=== PATIENT | female | born 1990 | race Caucasian/White ===

== ENCOUNTER 2024-09-29 08:10 | Emergency (ER) | payer BC, SELFPAY ==
--- NOTE | 2024-09-29 08:23 | ED_ITS ---
HPI - URI/Sore Throat General Chief Complaint: Upper Respiratory Infection Stated Complaint: cough fever Time Seen by Provider: 09/29/24 08:25 Source: patient Mode of arrival: ambulatory Limitations: no limitations History of Present Illness HPI Narrative: 34 y/o female presented for c/o cough and fever x2 days. States she feels worse today with body aches and malaise. Denies sob, wheezing, n/v/d/f/c. Tested nega tive for covid today. Daughter with similar symptoms. Related Data Allergies Allergy/AdvReac Type Severity Reaction Status Date / Time No Known Allergies Allergy Verified 09/29/24 08:12 Review of Systems Review of Systems: CONSTITUTIONAL: Denies body aches, fever, chills, or sweats. EYES: Denies visual changes, redness, or discharge. ENT: reports rhinorrhea, congestion, denies sore throat, or otalgia. CARDIOVASCULAR: Denies chest pain, palpitations, or edema. RESPIRATORY: Reports cough, denies sob, wheezing. GASTROINTESTINAL: Denies abdominal pain, nausea, vomiting, or diarrhea. MUSCULOSKELETAL: Denies back pain, joint pain, or myalgia. NEUROLOGIC: Denies headache, numbness, tingling, or weakness. All systems reviewed & are unremarkable except as noted in HPI and below PMFSH Comments At time of signature, I have reviewed and agree with nursing past medical, surgical, social and family history unless otherwise noted. Please see nursing chart for further information. There is no relevant family history pertinent to the presenting complaint Exam Narrative: GENERAL: mildly ill-appearing, in no acute distress. EYES: EOMI. No redness or drainage. Conjunctivae normal. ENT: Mucous membranes pink and moist. No rhinorrhea. TMs normal bilaterally. Throat normal. Uvula midline. NECK: Normal AROM. Supple. CHEST: No respiratory distress. Lungs clear to all moreno. HEART: Regular rate and rhythm. No murmur appreciated. ABDOMEN: Soft, nontender, nondistended, normal active bowel sounds. SKIN: Warm, dry, no rash. Capillary refill normal. Normal skin turgor. NEURO: Alert and oriented x3. Gait steady. PSYCH: Normal affect. Course Course Emergency Course: Patient is aware of diagnosis, understands and agrees to treatment plan. Anti cipatory guidance given. Patient agrees to follow-up as directed and is aware of reasons to seek care at the emergency department. Portions of this record may have been created with voice recognition software Level of Care: Express Care Visit Vital Signs Vital signs: Vital Signs Temperature 97.2 F L 09/29/24 08:27 Pulse Rate 88 09/29/24 08:27 Respiratory Rate 16 09/29/24 08:27 Blood Pressure 119/84 09/29/24 08:27 Pulse Oximetry 99 09/29/24 08:27 Temperature 97.2 F L 09/29/24 08:27 Pulse Rate 88 09/29/24 08:27 Respiratory Rate 16 09/29/24 08:27 Blood Pressure 119/84 09/29/24 08:27 Pulse Oximetry 99 09/29/24 08:27 MDM - URI/Sore Throat MDM Narrative Medical decision making narrative: Discussed physical exam findings, negative flu, COVID, and strep. Advised supportive measures and signs/symptoms to go to the ER. Pt is appropriate for outpt treatment and f/u. Differential Diagnosis Differential diagnosis: Likely upper respiratory infection, otitis media, sinusitis, viral infection, bronchitis, influenza and pharyngitis Lab Data Labs: Lab Results 09/29/24 Range/Units 08:48 POC Influenza A Ag Negative (Negative) POC Influenza B Ag Negative (Negative) POC SARS CoV-2 Ag Negative (Negative) POC Grp A Strep Screen Negative (Negative) Discharge Plan Discharge Clinical Impression: Viral infection Patient Disposition: Home, Self-Care Condition: Stable Instructions: Antibiotic Form, Upper Respiratory Infection (ED) Additional Instructions: Flu and COVID negative. Rapid strep swab was negative today You will be notified in a few days if the culture comes back positive for strep, and appropriate antibiotics will be called in at that time. if symptoms are due to a viral illness, it is not treated with antibiotics. Viral symptoms can be present for up to 10-14 days. Recommendations: Flonase spray and Zyrtec for sinus congestion Cough syrup may cause drowsiness; avoid driving or take it at night time. Tylenol every 8 hours as needed for pain/fever Soft foods, cool liquids, warm tea. Gargle with warm saltwater twice a day. Chloraseptic spray and throat lozenges. Rest and stay hydrated. --Follow up with your PCP --Go to the ER immediately if you cannot swallow your saliva, trouble breathin g/wheezing, throat swelling, pain is persistent and severe Patient Language: Welsh Prescriptions: New prednisone 20 mg tablet 40 mg PO DAILY 4 Days Qty: 8 0RF Follow-up/Referrals: Rocio,Farheen Ruby PA-C [Primary Care Provider] - Time of Disposition: 09:39
[2024-09-29 08:27] VITALS: BP 119/84; PULSE 88; RESP 16; TEMP 36.2; O2SAT 99
[2024-09-29 08:51] LABS: EDCOVIDSCREEN Negative (Negative); EDINFLUASCREEN Negative (Negative); EDINFLUBSCREEN Negative (Negative); EDSTREPNEGPOS1 Negative (Negative)
--- OUTSIDE RECORDS SUMMARY | 2024-10-06 03:52 | XMS_ITS | Encounter Summary ---
Author Organization [facility] Address [address] [place] [address]. [place], [place] [address] [place] [address] Care Team Providers Care Gas Plumber Name Role Phone Farheen Chan PA-C Primary Care Provider [phone]- [phone] Encounter Details Date Type Department Care Team (Latest Contact Info) Description 05/03/2024 Scan [facility] INFO [facility] Scanned, Doc Med Group Social History Tobacco Use Types Packs/Day Years Used Date Smoking Tobacco: Never Smokeless Tobacco: Never Alcohol Use Standard Drinks/Week Comments Yes 3.3 (1 standard drink = 0.6 oz p ure alcohol) Socially PHQ-2 Answer Date Recorded Patient Health Questionnaire-2 Score 0 04/26/2023 Comments Unknown Sex and Gender Information Value Date Recorded Sex Assigned at Not on file Legal Sex Female 7:38 PM CDT Gender Identity Not on file Sexual Orientation Not on file documented as of this encounter Plan of Treatment Not on file documented as of this encounter Visit Diagnoses Not on filedocumented in this encounter Care Teams Gas Plumber Relationship Specialty Start Date End Date Farheen Chan PA-C [address] [place] [address]. [place] [address] PCP - General PHYSICIAN WINE STEWARD 07/07/21 documented as of this encounter
--- OUTSIDE RECORDS SUMMARY | 2024-10-06 03:52 | XMS_ITS | Encounter Summary ---
Author Organization [facility] Address [address] [place] [address]. [place] [address] [place] [address] Care Team Providers Care Helper Chicken Farm Name Role Phone Farheen Chan PA-C Primary Care Provider [phone]- [phone] Encounter Details Date Type Department Care Team (Late st Contact Info) Description 04/28/2023 8:10 AM CDT Laboratory Only [facility] Medical Group [facility] [place] [address] [place] [address] Farheen Chan PA-C [address] [place], [place] [id number] Social History Tobacco Use Types Packs/Day Years [...] on file documented as of this encounter Procedures Procedure Name Priority Date/Time Associated Diagnosis Comments COLLECTION VENOUS BLOOD VENIPUNCTURE Routine 04/28/2023 8:29 AM CDT Need for hepatitis C screening test Screening, lipid Diabetes mellitus screening COMPREHENSIVE METABOLIC PANEL Routine 04/28/2023 8:29 AM CDT Diabetes mellitus screening LIPID PANEL Routine 04/28/2023 8:29 AM CDT Screening, lipid HEPATITIS C ANTIBODY Routine 04/28/2023 8:29 AM CDT Need for hepatitis C screening test documented in this encounter Results * (ABNORMAL) COMPREHENSIVE METABOLIC PANEL (04/28/2023 8:29 AM CDT) [facility] SODIUM S/P/B 141 136 - 145 MMOL/L 04/28/2023 4:21 PM CDT [facility] POTASSIUM S/P/B 4.1 3.5 - 5.1 MMOL/L 04/28/2023 4:21 PM CDT -[facility] CHLORIDE S/P/B 106 98 - 107 MMOL/L 04/28/2023 4:21 PM CDT [facility] CO2 23.0 21 - 32 MMOL/L 04/28/2023 4:21 PM CDT -[facility] GLUCOSE 93 70 - 99 MG/DL 04/28/2023 4:21 PM CDT [facility] BUN 8 7 - 18 MG/DL 04/28/2023 4:21 PM CDT -[facility] CREATININE S/P/B 0.91 0.55 - 1.02 MG/DL 04/28/2023 4:21 PM CDT [facility] CALCIUM S/P/B 8.8 8.4 - 10.5 MG/DL 04/28/2023 4:21 PM CDT -[facility] BILIRUBIN TOTAL S/P/B 0.4 0.2 - 1.0 MG/DL 04/28/2023 4:21 PM CDT [facility] ALKALINE PHOSPHATASE S/P/B 64 37 - 98 U/L 04/28/2023 4:21 PM CDT [facility] AST 16 15 - 37 U/L 04/28/2023 4:21 PM CDT [facility] ALT 21 14 - 59 U/L 04/28/2023 4:21 PM CDT [facility] TOTAL PROTEIN S/P/B 6.9 6.4 - 8.2 G/DL 04/28/2023 4:21 PM CDT [facility] [place] ALBUMIN S/P/B 3.8 3.4 - 5.0 G/DL 04/28/2023 4:21 PM CDT [facility] [place] ANION GAP 12.0 5 - 15 MMOL/L 04/28/2023 4:21 PM CDT [facility] [place] Comment:REFERENCE RANGE NOT ESTABLISHED OSMOLALITY (CALC) 290 MOSM/KG 023 4:21 PM CDT [facility] [place] Comment:REFERENCE RANGE NOT ESTABLISHED GFR ESTIMATE 84(L) >90 ML/MIN/1. 73 M2 04/28/2023 4:21 PM CDT [facility] GFR NOTES GFR REFERENCE S: 04/28/2023 4:21 PM T [facility] [place] Comment: THE ESTIMATED GFR IS CALCULATED USING THE 2020 CKD-EPI EQUATION. THE FOLLOWING CATEGORIES FOR GRADING RENAL FUNCTION ARE RECOMMENDED BY THE INTERNATIONAL SOCIETY OF NEPHROLOGY (KDIGO 2012 CLINICAL PRACTICE GUIDELINE). G1,NORMAL OR HIGH: >89 ml/min/1.73 m2 G2,MILDLY DECREASED: 60-89 ml/min/1.73 m2 G3A,MILDLY TO MODERATELY DECREASED: 45-59 ml/min/1.73 m2 G3B,MODERATELY TO SEVERELY DECREASED: 30-44 ml/min/1.73 m2 G4,SEVERELY DECREASED: 15-29 ml/min/1.73 m2 G5,KIDNEY FAILURE: <15 ml/min/1.73 m2 04/28/2023 8:29 AM CDT us Farheen Chan PA-C LABORATORY Final Resu lt [facility] [address] [place] [address], [place] [phone] * LIPID PANEL (04/28/2023 8:29 AM CDT) CHOLESTEROL 168 <200 MG/DL 04/28/2023 4:21 PM CDT [facility] TRIGLYCERIDES 45 <150 MG/DL 04/28/2023 4:21 PM CDT [facility] HDL 74 >40 MG/DL 04/28/2023 4:21 PM CDT [facility] LDL-C 85 <100 MG/DL 04/28/2023 4:21 PM CDT [facility] VLDL CALCULATION 9 5 - 28 MG/DL 04/28/2023 4:21 PM CDT [facility] CHOL/HDL RATIO 2.3 0.0 - 4.0 04/28/2023 4:21 PM CDT [facility] LDL/HDL 1.1 0.41 - 2.13 04/28/2023 4:21 PM CDT [facility] NON HDL CHOLESTEROL 94 <140 MG/DL 04/28/2023 4:21 PM CDT [facility] 04/28/2023 8:29 AM CDT Farheen Chan PA-C LABORATORY Final Resu lt [facility] [address] [place] [address], * HEPATITIS C ANTIBODY (04/28/2023 8:29 AM CDT) HEPATITIS C AB NON-REACTI VE NON-REACT SUNIL 04/28/2023 7:25 PM CDT [facility] Comment: ANTIBODIES TO HCV NOT DETECTED. DOES NOT EXCLUDE THE POSSIBILITY OF EXPOSURE TO HCV. 04/28/2023 8:29 AM CDT Farheen PATEL-C LABORATORY Final Resu lt [facility] [address] [place] [address], [phone] documented in this encounter Visit Diagnoses Diagnosis Need for hepatitis C screening test Special screening examination for other specified viral diseases Screening, lipid Screening for lipoid disorders Diabetes mellitus screening Screening for diabetes mellitus documented in this encounter Care Teams Helper Chicken Farm Relationship Specialty Start Date End Date Farheen Chan PA-C [address] [place] [address] PCP - General PHYSICIAN YARDING SUPERVISOR 07/07/21 documented as of this encounter
--- OUTSIDE RECORDS SUMMARY | 2024-10-06 03:52 | XMS_ITS | Encounter Summary ---
Author Organization [facility] Address [address] [facility] [place] [address] Care Team Providers Care Armhole Baster Jumpbasting Name Role Phone Esteban Massey MD Primary Care Provider Unav ailable Reason for Referral * Consultation (Routine) - Closed Specialty Diagnoses / Procedures Referred By Contac t Referred To Contact Diagnoses Family history of congenital heart defect Procedures AMB CONSULT TO MATERNAL MEDICNE Elvia, Ordering Provider, Referral ID Status Reason Start Date Expiration Date Visits Re quested Visits Authorized [id number] Closed 08/19/2016 02/15/2017 1 1 CTOR PACKAGING Reason for Visit * Reason Comments Ultrasound Consultation Encounter Details Date Type Department Care Team (Latest Contact Info) Description 08/22/2016 1:14 PM DIRECTOR PACKAGING - 08/22/2016 11:59 PM DIRECTOR PACKAGING Hospital Encounter [facility] [address] [place] [address] Orion Beckford MD [address] [place] [address] Discharge Disposition: Home or Self Care Social History Tobacco Use Types Packs/Day Years Used Date Smoking Tobacco: Former Cigarettes 0.3 8.6 S tarted: 03/02/2016 Smokeless Tobacco: Never Comments Yes Sex and Gender Information Value Date Recorded Sex Assigned at Not on file Gender Identity Not on file Sexual Orientation Not on file documented as of this encounter Last Filed Vital Signs Vital Sign Reading Time Taken Comments Blood Pressure 117/67 08/22/2016 1:41 PM DIRECTOR PACKAGING Pulse 82 08/22/2016 1:41 PM DIRECTOR PACKAGING Temperature - - Respiratory Rate - - Oxygen Saturation - - Inhaled Oxygen Concentration - - Weight 79.8 kg (176 lb) 08/22/2016 1:41 PM DIRECTOR PACKAGING Height 170.2 cm (5' 7 ) 08/22/2016 1:41 PM DIRECTOR PACKAGING Body Mass Index 27.57 08/22/2016 1:41 PM DIRECTOR PACKAGING documented in this encounter Medications at Time of Discharge Medication Sig Dispensed Refills Start Date End Date albuterol HFA (PROVENTIL;VENTOLIN;PROAIR ) 108 (90 BASE) MCG/ACT inhaler Inhale 2 Puffs by mouth every 6 hours as needed Vit-Fe Fumarate-FA ( VITAMIN) 28-0.8 MG tablet Take 1 Tab by mouth once daily documented as of this encounter Progress Notes * Mecca Henry RN - 08/22/2016 1:42 PM CST New patient here for MFM consult and US. Please see letter per Dr. Beckford. CTOR PACKAGING documented in this encounter Consult Notes * Orion Beckford MD - 08/22/2016 2:45 PM CSTAssociated Order(s): AMB CONSULT TO MATERNAL MEDICNE Maternal Medicine Consult Note Date of Consult: 08/22/2016 Patient's Primary Care Physician: Esteban Massey MD Physician Requesting Consult: Sanjeev So MD [address] [facility] [address] [place] [address] Name: Taylor Verduzco Age: 26 y.o. Race: Reason for requesting consultation: Taylor Verduzco is a 26 y.o. 3, Para 1, 1, female at 14w2d weeks gestation by EDDEstimated Date of Delivery: 02/18/17. I have been asked by Dr. So to consult for family historyof cardiac anomalies. Maternal grandmother with reported history of Tetralogy of Fallot (TOF). Patients mother had heart problem diagnosed in , patient uncertain of diagnosis. Patient reports no complaints. No significant cardiac history for patient. She reports normal priorpregnancy with C/S for arrest of labor. Problem List: Past Medical History Diagnosis Date ??? History of asthma Past Surgical History Procedure Laterality Date ??? section No current outpatient prescriptions on file prior to encounter. No Known Allergies History Social History ??? Marital status: Spouse name: N/A ??? Number of children: N/A ??? Years of education: N/A Occupational History ??? Not on file. Social History Main Topics ??? Smoking status: Former Smoker Packs/day: 0.25 Years: 5.00 Types: Cigarettes Start date: 03/02/2016 ??? Smokeless tobacco: Never Used ??? Alcohol use: Not on file ??? Drug use: No ??? Sexual activity: Yes Partners: Male Other Topics Concern ??? Not on file Social History Narrative Family History Problem Relation Age of Onset ??? Heart Disease Maternal Grandmother ??? Kidney Disease Father ??? Cancer Father ??? Heart Disease Mother ??? Cancer Mother ??? Twins Mother ??? Heart Disease Maternal Aunt Review of Systems: General ROS: negative Exam: BP 117/67 Pulse 82 Wt 176 lb (79.8 kg) BMI 27.57 kg/m2 General: alert, cooperative, no distress, , Abdomen: Soft and non-tender Extremities: normal, non-tender bilaterally Impression: 1. IUP (Intrauterine ) 2. Gestational Age: 14w2d 3. Family history of cardiac disease Recommendations: 1. With family history of cardiac disease, consider maternal echo. Also, consider echo at [facility] at approximately 22-24 weeks gestation. Consider detailed OB survey at approximately 18-22 weeks gestation. Patient considering options and she plans to discuss further with her primary OB provider who cans schedule the follow up and recommended ultrasounds as clinically indicated including the maternal echo, echo, and detailed OB ultrasound. No acute OB issues. Follow up with MFM as clinically indicated. Patient could consider follow up with a genetics counselor as clinically indicated for the family history of heart disease. 2. Discussed option of screening for aneuploidy including NIPT screening. Non-invasive testing (NIPT) is designed to assess the risk for certain chromosome abnormalities by analyzing DNA found in maternal blood. NIPT routinely detects trisomy 21 (Down syndrome), trisomy 18, trisomy 13, and numerical sex chromosome abnormalities. NIPT does not provide information about other chromosome abnormalities or genetic syndromes. Based on studies of high risk pregnancies, NIPT appears to be a highly accurate test, however false positive and false negative results can occur. Standard diagnostic testing by amniocentesis remains an option regardless of NIPT results. Discussed alternative screening option of maternal serum Quad screen between 15- 20 weeks gestation as screening test for Trisomy 21, Trsiomy 18, and opent neural tube defects with a sensitivity in detection of approximately 80% Patient considering options and plans to discuss further with her primary OB provider. Further management as per clinical indications. 2. I am seeing the patient as an office Maternal Medicine economic consultant. No further follow up has been scheduled at the [facility] office. The patient is to follow up with her primary obstetrical care provider for her routine care and acute OB cares including delivery as clinically indicated. Once again, we appreciate the opportunity to assist you in the care of your patient. As stated above, she will continue seeing you for care. If issues arise for which I can be of help beforeher next visit here, please contact me directly, or contact one of the other [facility] physicians. Sincerely, Orion Beckford MD Renewable Energy Engineer [facility], Department of SHOVEL OPERATOR and Women's Health Maternal Medicine CTOR PACKAGING documented in this encounter Plan of Treatment Not on file documented as of this encounter Procedures Procedure Name Priority Date/Time Associated Diagnosis Comments SONOGRAM - COMPLETE Routine 08/22/2016 2 :15 PM DIRECTOR PACKAGING Family history of congenital heart defect documented in this encounter Results * SONOGRAM - COMPLETE (08/22/2016 2:15 PM DIRECTOR PACKAGING) Anatomical Region Laterality Modality Other 08/22/2016 2:15 PM DIRECTOR PACKAGING Narrative 08/31/2016 3:42 PM DIRECTOR PACKAGING ?[facility] ? [facility] ?PHONE: ??FAX: ? Pat. Name: ?KENNY TAYLORFELICIA Franks. No: ?[id number] Study Date: ?? 08/22/2016 ??2:15pm , Age: ? 1990, 26 Pregnancies: ?? 3, Para 1, Ab 1 Height: ? 67 in Weight: ? 170 lb LMP: ?Unknown GA by US: ? 15w0d GA Selected: ??14w2d (Outside Scan) ILAN: ?02/18/2017 Referring MD: Sanjeev So MD Machine Ii Coremaker: ??Kayla Armijo RDMS Hist/Ind: ? Fx Cardiac Anomalies ?Athma ?Hx MEASUREMENTS & AGE ? GROWTH EVALUATION Measurement ??GA ? Range ? Srce %for GA Ratios ----- ---- ------- BPD ??3.0 cm 15w3d ([id number]) Hadl BPD 92% FL/BPD 0.52 HC ??10.5 cm 15w0d (07m7r-36n1i) Hadl HC ??76% FL/AC ??0.17 AC ?? 9.1 cm 15w2d (24r8c-01i1s) Hadl AC ??77% HC/AC ??1.15 (1.11 - 1.30) FL ?? 1.5 cm 14w4d (64q5c-33a4p) Hadl FL ??58% CI ? 0.82 GA for sonogram 15w0d (15v3p-12d9x) ?? Weight Estimate: based on (BPD,HC,AC,FL) Avg ?Weight: 110 gm (94-126) Hadlock ? : 0lbs, 3oz ? Normal: 100 gm (75-124) Hadlock ? Wt% ? 70% for 14w2d Heart Rate: 153 bpm CLINICAL SUMMARY Study Number: 1 A single fetus is identified in cephalic presentation. ??The measurements today are consistent with appropriate size for the ILAN provided. ??The ILAN selected is based on a prior ultrasound examination (confirmed). ??The amniotic fluid volume is within normal limits. ??The placenta is anterior. ??Visualization of the anatomy is limited on today's exam by gestational age. ??No major malformations are seen within the limitations of ultrasound examination. ??The patient was advised that ultrasound does not allow detection of all structural or chromosomal abnormalities. IMPRESSION: 1. Single, live, IUP at 14w2d 2. Appropriate size 3. Normal amniotic fluid volume 4. Anterior placenta 5. Anatomy survey is incomplete 6. No major malformations are seen within the limitations of ultrasound examination 7. Examination of the fetus is limited by positioning and early gestational age RECOMMEND: ?? Follow up ultrasound in 6 weeks to complete the anatomic survey Thank you for allowing us the opportunity to care for your patient. Orion Beckford MD <Electronic Signature> ??08/31/2016 03:42pm Ordering Provider Unlisted MD WILKINSON ORDERA YADY documented in this encounter Visit Diagnoses Diagnosis Family history of congenital heart defect- Primary Family history of congenital anomalies Supervision of other high risk pregnancies, second trimester (HCC) Disease of respiratory system affecting , second trimester (HCC) Uncomplicated asthma, unspecified asthma severity (HCC) documented in this encounter Care Teams Armhole Baster Jumpbasting Relationship Specialty Start Date End Date Esteban Massey MD PCP - General Family Medicine 08/22/16 documented as of this encounter
--- OUTSIDE RECORDS SUMMARY | 2024-10-06 03:52 | XMS_ITS | Encounter Summary ---
Author Organization [facility] Address [address] [place] [address]. [place] [address] [place] [address] Care Team Providers Care Head Of Visual Merchandising Name Role Phone Farheen Chan PA-C Primary Care Provider [phone]- [phone] Encounter Details Date Type Department Care Team (Late st Contact Info) Description 05/01/2023 [employer] Message Enc [facility] Family Medicine - [place] [address] [place] [address] Farheen Chan PA-C [address] [place] [address] [phone] results Social History Tobacco Use Types Packs/Day Years [...] on filedocumented in this encounter Care Teams Head Of Visual Merchandising Relationship Specialty Start Date End Date Farheen Chan PA-C [address] [place] [address] [phone] PCP - General PHYSICIAN LUNCHEONETTE OPERATOR 07/07/21 documented as of this encounter
--- OUTSIDE RECORDS SUMMARY | 2024-10-06 03:52 | XMS_ITS | Encounter Summary ---
Author Organization [facility] Address [address] [place] [address]. [place] [address] [place] [address] Care Team Providers Care Chemical Processing Technician Name Role Phone Farheen Chan PA-C Primary Care Provider +1- [phone] Encounter Details Date Type Department Care Team (Late st Contact Info) Description 08/29/2022 Orders Only [facility] Family Medicine - [place] [address] Mercedes Lau MA Social History Tobacco Use Types Packs/Day Years Used Date Smoking Tobacco: Never Smokeless Tobacco: Never Alcohol Use Standard Drinks/Week Comments Yes 0 (1 standard drink = 0.6 oz pur e alcohol) Socially PHQ-2 Answer Date Recorded PHQ-2 Score - If the patient scores above 3, please move on to questions 3-9 0 01/05/2022 Comments Unknown Sex and Gender Information Value Date Recorded Sex Assigned at Not on file Legal Sex Female 7:38 PM CDT Gender Identity Not on file Sexual Orientation Not on file documented as of this encounter Progress Notes * Mercedes Lau MA - 08/29/2022 2:31 PM CST Medication refill request for: duplicate order Last visit with Farheen Chan Was 01/05/22 No up coming appt Please sign pending Rx OTYPE OPERATOR documented in this encounter Plan of Treatment Not on file documented as of this encounter Visit Diagnoses Diagnosis Mild persistent asthma without complication (HHS/HCC) Unspecified asthma documented in this encounter Care Teams Chemical Processing Technician Relationship Specialty Start Date End Date Farheen Chan PA-C [address] [place] [id number] PCP - General PHYSICIAN POLE CUTTER 07/07/21 documented as of this encounter
--- OUTSIDE RECORDS SUMMARY | 2024-10-06 03:52 | XMS_ITS | Encounter Summary ---
Author Organization [facility] Address [address] [place] [address]. [place] [address] [place] [address] Care Team Providers Care Gifted Program Teacher Name Role Phone Farheen Chan PA-C Primary Care Provider +1- [phone] Reason for Visit * Reason Onset Date Comments Refill Request 11/25/2022 Encounter Details Date Type Department Care Team (Late st Contact Info) Description 11/25/2022 Telephone [facility] Family Medicine - [place] [address] [place] [address] Farheen Chan PA-C [address] [place] [address] Refill Request Social History Tobacco Use Types Packs/Day Years [...] as of this encounter Progress Notes * Ana Laura Saxena - 11/25/2022 11:25 AM CST Refill Request. [facility] [place], [place] [phone] Albuterol sulfate HFA 108 Inhaler. Fluticasone-salmeterol 250-50 inhaler. GEMENT PROFESSIONAL documented in this encounter Plan of Treatment Not on file documented as of this encounter Visit Diagnoses Diagnosis Mild persistent asthma without complication (HHS/HCC) Unspecified asthma documented in this encounter Care Teams Gifted Program Teacher Relationship Specialty Start Date End Date Farheen Chan PA-C [address] [place] [id number] PCP - General PHYSICIAN MEDICAL PROGRAM SPECIALIST 07/07/21 documented as of this encounter
--- OUTSIDE RECORDS SUMMARY | 2024-10-06 03:52 | XMS_ITS | Encounter Summary ---
Author Organization [facility] Address [address] [place] [address]. [place] [address] [place] [address] Care Team Providers Care Primary Grade Teacher Name Role Phone Farheen Chan PA-C Primary Care Provider +1- [phone] Reason for Visit * Reason Onset Date Comments Refill Request 08/29/2022 Medication Request 08/29/2022 Encounter Details Date Type Department Care Team (Late st Contact Info) Description 08/29/2022 Telephone [facility] Family Medicine - [place] [address] [place] [address] Farheen Chan PA-C [address] [place] [address] Refill Request; Medication Request Social History Tobacco Use Types Packs/Day [...] Notes * Mercedes Lau MA - 08/29/2022 2:37 PM CST Last visit with Farheen Chan Was 01/05/22 No up coming appt Please sign pending Rx PER SELECTOR documented in this encounter Plan of Treatment Not on file documented as of this encounter Visit Diagnoses Diagnosis Mild persistent asthma without complication (HHS/HCC) Unspecified asthma documented in this encounter Care Teams Primary Grade Teacher Relationship Specialty Start Date End Date Farheen Chan PA-C [address] [place] [id number] PCP - General PHYSICIAN EDITOR MANAGING NEWSPAPER 07/07/21 documented as of this encounter
--- OUTSIDE RECORDS SUMMARY | 2024-10-06 03:52 | XMS_ITS | Encounter Summary ---
Author Organization [facility] Address [address] [place] [address]. [place], [place] [address] [place] [address] Care Team Providers Care Permanent Mold Supervisor Name Role Phone Farheen Chan PA-C Primary Care Provider +1- [phone] Reason for Referral * Sleep Lab (Routine) - Closed Specialty Diagnoses / Procedures Referred By Ruchi padilla Referred To Contact Diagnoses Snoring Fatigue, unspecified type Overweight (BMI 25.0-29.9) Sleep apnea, unspecified type Morning headache Procedures Home Sleep Study - WatchPat ([id number]) Alexander Greenfield DO [address] [facility] [address] [place] [address] Phone: tel: fax: Referral ID Status Reason Start Date Expiration Date Visits Re quested Visits Authorized [id number] Closed 04/28/2023 04/28/2024 1 1 Reason for Visit * Sleep Lab (Routine) - Closed Specialty Diagnoses / Procedures Referred By Ruchi padilla Referred To Contact Diagnoses Snoring Fatigue, unspecified type Overweight (BMI 25.0-29.9) Sleep apnea, unspecified type Morning headache Procedures Home Sleep Study - WatchPat ([id number]) Alexander Greenfield DO [address] [facility] [address] [place] [address] Phone: tel: fax: Referral ID Status Reason Start Date Expiration Date Visits Re quested Visits Authorized [id number] Closed 04/28/2023 04/28/2024 1 1 Encounter Details Date Type Department Care Team (Latest Contact Info) Description 05/25/2023 12:47 PM CDT - 05/25/2023 11:59 PM CDT Hospital Encounter [facility] [address] [place] [address] Alexander Greenfield DO [address] [facility] [address] [place] [address] Discharge Disposition: Home or Self Care (Routine Discharge) Social History Tobacco Use Types Packs/Day Years [...] on file documented as of this encounter Medications at Time of Discharge albuterol (2.5 MG/3ML) 0.083% nebulizer solutionIndicatio ns:Mild persistent asthma without complication (HHS/HCC) Take 3 mLs (2.5 mg total) by nebulization every 6 (six) hours as needed for Wheezing. 360 mL 01/10/2022 fluticasone-salme terol (ADVAIR DISKUS) 250-50 MCG/ACT inhalerIndication s:Mild persistent asthma without complication (HHS/HCC) Inhale 1 puff into the lungs 2 (two) times daily. 1 each 3 11/25/2022 NEBULIZER DEVICE, DME,Indications:M ild persistent asthma without complication (HHS/HCC) Take 1 Device by nebulization every 6 (six) hours as needed. 1 Device 01/12/2022 albuterol sulfate HFA 108 (90 Base) MCG/ACT inhalerIndication s:Mild persistent asthma without complication (HHS/HCC) INHALE 2 PUFFS INTO THE LUNGS EVERY 6 HOURS NEEDED FOR WHEEZE 8.5 g 1 04/24/2023 3 documented as of this encounter Procedure Notes * Santos Stoll MD - 05/25/2023 1:00 PM CDTAssociated Order(s): HOME SLEEP STUDY - WATCHPAT [facility]???[facility] O???[place], [place] HOME SLEEP STUDY INTERPRETATION PATIENT NAME: Licha Verduzco DATE OF : 1990 DATE OF SERVICE: 05/25/2023 Ordering Phys. Exam Description Alexander Greenfield D.O. Home Sleep Study ATTENDING PHYSICIAN: Dr. Santos Stoll REFERRING PHYSICIAN: Dr. Alexander Greenfield SUMMARY DATA Sleep Study/ Architecture: This patient was studied using a WatchPAT home sleep study device. The evaluation was initiated on 05/25/2023 at 7:45 PM and was stopped on 05/26/2023 at 4:38 AM. The totalrecording time was 532.0 minutes with total sleep evaluation 449.0 minutes. DIAGNOSTIC Total pAHI (Apnea-Hypopnea Index) (4%): Total pRDI (Respiratory Disturbance Index): 1.1/hr 7.5/hr Average Sleep Oxygen Saturation: 94 Minimum Sleep Oxygen Saturation: Mean Heart Rate during Sleep: 90 73.0 bpm Assessment/Plan: No Evidence of Obstructive Sleep Apnea. Rare snoring was noted during this study. This patient should maintain good sleep hygiene techniques, maintain a consistent sleep/wake schedule with adequate hours of sleep, and avoid hazardous activities when sleepy. The patient should be cautioned about factors that may potentially exacerbate snoring and other sleep-related issues, such as INTERNAL AUDIT SENIOR MANAGER depressants, especially at bedtime. This document was electronically signed by: Santos Stoll M.D. on 05/26/2023 at 5:15 PM. documented in this encounter Plan of Treatment Not on file documented as of this encounter Procedures Procedure Name Priority Date/Time Associated Diagnosis Comments HOME SLEEP STUDY - WATCHPAT Routine 05/25/2023 1:00 PM CDT Snoring Fatigue, unspecified type Overweight (BMI 25.0-29.9) Sleep apnea, unspecified type Morning headache documented in this encounter Results * Home Sleep Study - WatchPat ([id number]) (05/25/2023 1:00 PM CDT) Narrative [facility] - 05/25/2023 1:00 PM CDT Santos Stoll MD ? 06/22/2023 11:33 AM [facility] O? [place], [place] HOME SLEEP STUDY INTERPRETATION PATIENT NAME: Licha Verduzco DATE OF : 1990 DATE OF SERVICE: 05/25/2023 ?? Ordering Phys. Exam Description Alexander Greenfield D.O. Home Sleep Study ATTENDING PHYSICIAN: Dr. Santos Stoll REFERRING PHYSICIAN: Dr. Alexander Greenfield SUMMARY DATA Sleep Study/ Architecture: This patient was studied using a WatchPAT home sleep study device. The evaluation was initiated on 05/25/2023 at 7:45 PM and was stopped on 05/26/2023 at 4:38 AM. The total recording time was 532.0 minutes with total sleep evaluation 449.0 minutes. DIAGNOSTIC Total pAHI (Apnea-Hypopnea Index) (4%): Total pRDI (Respiratory Disturbance Index): 1.1/hr 7.5/hr Average Sleep Oxygen Saturation: 94 Minimum Sleep Oxygen Saturation: Mean Heart Rate during Sleep: 90 73.0 bpm Assessment/Plan: No Evidence of Obstructive Sleep Apnea. Rare snoring was noted during this study. This patient should maintain good sleep hygiene techniques, maintain a consistent sleep/wake schedule with adequate hours of sleep, and avoid hazardous activities when sleepy. The patient should be cautioned about factors that may potentially exacerbate snoring and other sleep-related issues, such as INTERNAL AUDIT SENIOR MANAGER depressants, especially at bedtime. This document was electronically signed by: Santos Stoll M.D. on 05/26/2023 at 5:15 PM. us Alexander Greenfield DO SLEEP CENTER ORDERABLES Fi nal Result [facility] [address] [place] [address], [place] [phone] documented in this encounter Visit Diagnoses Diagnosis Snoring Other dyspnea and respiratory abnormality Fatigue, unspecified type Overweight (BMI 25.0-29.9) Overweight Sleep apnea, unspecified type Morning headache Headache documented in this encounter Care Teams Permanent Mold Supervisor Relationship Specialty Start Date End Date Farheen Chan PA-C [address] [place] [id number] PCP - General PHYSICIAN CIGARETTE MAKING MACHINE OPERATOR 07/07/21 documented as of this encounter
--- OUTSIDE RECORDS SUMMARY | 2024-10-06 03:52 | XMS_ITS | Encounter Summary ---
Author Organization [facility] Address [address] [place] [address]. [place] [address] [place] [address] Care Team Providers Care Plant Sciences Professor Name Role Phone Farheen Chan PA-C Primary Care Provider +1- [phone] Encounter Details Date Type Department Care Team (Latest Contact Info) Description 04/28/2023 Travel Social History Tobacco Use Types Packs/Day Years [...] on filedocumented in this encounter Care Teams Plant Sciences Professor Relationship Specialty Start Date End Date Farheen Chan PA-C [address] [place] [address] PCP - General PHYSICIAN NETWORK FIELD ENGINEER 07/07/21 documented as of this encounter
--- OUTSIDE RECORDS SUMMARY | 2024-10-06 03:52 | XMS_ITS | Patient Health Summary ---
Author Organization [facility] [employer] Address [address] [place] [address] Care Team Providers Care Supervisor Cab Name Role Phone Esteban Massey MD Primary Care Provider Unav ailable Note from [facility] [employer] [facility] [employer],non-owned Affiliates and Associated Physician Practices is amultiple site organization consisting of ambulatory clinics and hospital sitesin [place], [place], [place] and [place]. This disclosure is being madepursuant to the Care Everywhere program and may not contain all information available regarding this patient. Last updated 18.[facility] [employer] Allergies No known active allergies Medications * Be aware that medications may not be up to date on this document. Alwaysverify current medications with the patient. * albuterol HFA (PROVENTIL;VENTOLIN;PROAIR) 108 (90 BASE) MCG/ACT inhaler Inhale 2 Puffs by mouth every 6 hours as needed * Vit-Fe Fumarate-FA ( VITAMIN) 28-0.8 MG tablet Take 1 Tab by mouth once daily Active Problems Problem Noted Date Diagnosed Date Family history of congenital heart defect 2015 Social History Tobacco Use Types Packs/Day Years Used Date Smoking Tobacco: Former Cigarettes 0.3 8.6 S tarted: 03/02/2016 Smokeless Tobacco: Never Sex and Gender Information Value Date Recorded Sex Assigned at Not on file Gender Identity Not on file Sexual Orientation Not on file Last Filed Vital Signs Vital Sign Reading Time Taken Comments Blood Pressure 117/67 08/22/2016 1:41 PM HERBARIUM WORKER Pulse 82 08/22/2016 1:41 PM HERBARIUM WORKER Temperature - - Respiratory Rate - - Oxygen Saturation - - Inhaled Oxygen Concentration - - Weight 79.8 kg (176 lb) 08/22/2016 1:41 PM HERBARIUM WORKER Height 170.2 cm (5' 7 ) 08/22/2016 1:41 PM HERBARIUM WORKER Body Mass Index 27.57 08/22/2016 1:41 PM HERBARIUM WORKER Procedures * SONOGRAM - COMPLETE(Performed 08/22/2016) Performed for Family history of congenital heart defect Results * SONOGRAM - COMPLETE (08/22/2016 2:15 PM HERBARIUM WORKER) Anatomical Region Laterality Modality Other 08/22/2016 2:15 PM HERBARIUM WORKER Narrative 08/31/2016 3:42 PM HERBARIUM WORKER ?[facility] ?PHONE: ??FAX: ? Pat. Name: ?TAYLOR VERDUZCO. No: ?[id number] Study Date: ?? 08/22/2016 ??2:15pm , Age: ? 1990, 26 Pregnancies: ?? 3, Para 1, Ab 1 Height: ? 67 in Weight: ? 170 lb LMP: ?Unknown GA by US: ? 15w0d GA Selected: ??14w2d (Outside Scan) ILAN: ?02/18/2017 Referring MD: Sanjeev So MD Automation Controls Engineer: ??Kayla Armijo RDMS Hist/Ind: ? Fx Cardiac Anomalies ?Athma ?Hx MEASUREMENTS & AGE ? GROWTH EVALUATION Measurement ??GA ? Range ? Srce %for GA Ratios ----- ---- ------- BPD ??3.0 cm 15w3d ([id number]) Hadl BPD 92% FL/BPD 0.52 HC ??10.5 cm 15w0d ([id number]) Hadl HC ??76% FL/AC ??0.17 AC ?? 9.1 cm 15w2d ([id number]) Hadl AC ??77% HC/AC ??1.15 (1.11 - 1.30) FL ?? 1.5 cm 14w4d (31q1g-39u1g) Hadl FL ??58% CI ? 0.82 GA for sonogram 15w0d ([id number]) ?? Weight Estimate: based on (BPD,HC,AC,FL) Avg [...] ??08/31/2016 03:42pm Ordering Provider [facility]listed [facility] Care Teams Supervisor Cab Relationship Specialty Start Date End Date Esteban Massey MD PCP - General Family Medicine 08/22/16
--- OUTSIDE RECORDS SUMMARY | 2024-10-06 03:52 | XMS_ITS | Referral Summary ---
Author Organization [facility] [employer] Address [address] [place] [address] Care Team Providers Care Airplane Gastank Liner Assembler Name Role Phone Esteban Massey MD Primary Care Provider Unav ailable Source Comments [facility] [employer],non-owned Affiliates and Associated Physician Practices is amultiple site organization consisting of ambulatory clinics and hospital sitesin [place], [place], [place] and [place]. This disclosure is being madepursuant to the Care Everywhere program and may not contain all information available regarding this patient. Last updated 18.[employer] Allergies No known active allergies Medications * Be aware that medications may not be up to date on this document. Alwaysverify current medications with the patient. Medication Sig Dispensed Refills Start Date End Date Status albuterol HFA (PROVENTIL;VENTOLIN;NC OAIR) 108 (90 BASE) MCG/ACT inhaler Inhale 2 Puffs by mouth every 6 hours as needed Active Vit-Fe Fumarate-FA ( VITAMIN) 28-0.8 MG tablet Take 1 Tab by mouth once daily Active Active Problems Problem Noted Date Diagnosed Date [...] Comments Blood Pressure 117/67 08/22/2016 1:41 PM SONOGRAM TECHNICIAN Pulse 82 08/22/2016 1:41 PM SONOGRAM TECHNICIAN Temperature - - Respiratory Rate - - Oxygen Saturation - - Inhaled Oxygen Concentration - - Weight 79.8 kg (176 lb) 08/22/2016 1:41 PM SONOGRAM TECHNICIAN Height 170.2 cm (5' 7 ) 08/22/2016 1:41 PM SONOGRAM TECHNICIAN Body Mass Index 27.57 08/22/2016 1:41 PM SONOGRAM TECHNICIAN Plan of Treatment Not on file Care Teams Airplane Gastank Liner Assembler Relationship Specialty Start Date End Date Esteban Massey MD PCP - General Family Medicine 08/22/16
--- OUTSIDE RECORDS SUMMARY | 2024-10-06 03:52 | XMS_ITS | Encounter Summary ---
Author Organization [facility] Address [address] [place] [address]. [place], [place] [id number] [place] [address] Care Team Providers Care Manager Hotel Name Role Phone Reji Heller PA-C Primary Care Provider [phone]- [phone] Reason for Referral * Consultation (Routine) - Closed Specialty Diagnoses / Procedures Referred By Contact Referred To Contact SLEEP & RESPIRATORY CARE Diagnoses Snoring Procedures OFFICE/OUTPT VISIT,NEW,LEVL III OFFICE/OUTPT VISIT,NEW,LEVL IV OFFICE/OUTPT VISIT,NEW,LEVL V OFFICE/OUTPT VISIT,EST,LEVL III OFFICE/OUTPT VISIT,EST,LEVL IV OFFICE/OUTPT VISIT,EST,LEVL V Reji Heller PA-C [address] [place] [address] Phone: tel: fax: [facility] [address] [facility], [address] [place] [address] Phone: tel: fax: Referral ID Status Reason Start Date Expiration Date V isits Requested Visits Authorized [id number] Closed Specialty Services 04/26/2023 05/27/2024 99 99 Reason for Visit * Reason Comments Annual Encounter Details Date Type Department Care Team (Late st Contact Info) Description 04/26/2023 10:00 AM CDT Office Visit [facility] Family Medicine - [place] [address] [place] [id number] Reji Heller PA-C [address] [place] [address] Annual Social History Tobacco Use Types Packs/Day Years [...] Sign Reading Time Taken Comments Blood Pressure 124/88 04/26/2023 10:00 AM CDT Pulse 98 04/26/2023 10:00 AM CDT Temperature 36.8 ??C (98.2 ??F) 04/26/2023 10:00 AM C DT Respiratory Rate - - Oxygen Saturation 99% 04/26/2023 10:00 AM CDT Inhaled Oxygen Concentration - - Weight 76.8 kg (169 lb 6.4 oz) 04/26/2023 10:00 AM CDT Height - - Body Mass Index 26.93 01/05/2022 1:01 PM CDT documented in this encounter Progress Notes * Reji Heller PA-C - 04/26/2023 10:00 AM CDT Reason for Visit: Annual History of Present Illness: Patient here for asthma follow up. Takes advair daily and feels her asthma is well controlled on it. She rarely uses the albuterol. Tries to follow diet and exercise. She sees grants and contracts assistant for well woman exam. She is having some trouble sleeping and her said she stops breathing sometimes. She snoresand has daytime fatigue. Denies any other complaints. ROS: Review of Systems Constitutional: Positive for fatigue. Respiratory: Positive for snoring. Negative for shortness of breath. Cardiovascular: Negative for chest pain. Psychiatric/Behavioral: Negative for suicidal ideas. All other systems reviewed and are negative. Medications: Current Outpatient Medications: albuterol (2.5 MG/3ML) 0.083% nebulizer solution, Take 3 mLs (2.5 mg total) by nebulization every 6(six) hours as needed for Wheezing., Disp: 360 mL, Rfl: 0 albuterol sulfate HFA 108 (90 Base) MCG/ACT inhaler, INHALE 2 PUFFS INTO THE LUNGS EVERY 6 HOURS ASNEEDED FOR WHEEZE, Disp: 8.5 g, Rfl: 1 fluticasone-salmeterol (ADVAIR DISKUS) 250-50 MCG/ACT inhaler, Inhale 1 puff into the lungs 2 (two)times daily., Disp: 1 each, Rfl: 3 NEBULIZER DEVICE, DME,, Take 1 Device by nebulization every 6 (six) hours as needed., Disp: 1 Device, Rfl: 0 Review of patient's allergies indicates: No Known Allergies Past Medical History: Diagnosis Date Anemia Asthma Childhood GERD (gastroesophageal reflux disease) 2020 Past Surgical History: Procedure Laterality Date SECTION Social History Socioeconomic History Marital status: Tobacco Use Smoking status: Never Smokeless tobacco: Never Vaping Use Vaping Use: Never used Substance and Sexual Activity Alcohol use: Yes Alcohol/week: 3.3 standard drinks Types: 2 Glasses of wine per week Comment: Socially Drug use: Never Sexual activity: Yes Partners: Male control/protection: None E-Cigarettes Questions Responses E-Cigarette Use Never User E-cigarette/Vaping Substances Questions Responses Nicotine No THC No CBD No Flavoring No E-cigarette/Vaping Devices Questions Responses Disposable No Pre-filled or Refillable Cartridge No Refillable Tank No Pre-filled Pod No Family History Problem Relation Name Age of Onset Cancer Mother Dipti Kang COPD Mother Dipti Kang Kidney Disease Father Stevan Kang Family Status Relation Name Status Mother Dipti Kang Father Stevan Kang Physical Exam Vitals reviewed. Constitutional: Appearance: Normal appearance. HENT: Head: Normocephalic. Right Ear: Tympanic membrane normal. Left Ear: Tympanic membrane normal. Mouth/Throat: Oropharynx is clear and moist and mucous membranes are normal. Mucous membranes are moist. No posterior oropharyngeal edema or posterior oropharyngeal erythema. Oropharynx is clear. Eyes: Conjunctiva/sclera: Conjunctivae normal. Pupils: Pupils are equal, round, and reactive to light. Neck: Thyroid: No thyromegaly. Cardiovascular: Rate and Rhythm: Normal rate and regular rhythm. Pulmonary: Effort: Pulmonary effort is normal. Breath sounds: Normal breath sounds. Abdominal: General: Bowel sounds are normal. Palpations: Abdomen is soft. Tenderness: There is no abdominal tenderness. Musculoskeletal: Right lower leg: No edema. Left lower leg: No edema. Skin: General: Skin is warm and dry. Findings: No rash. Neurological: General: No focal deficit present. Mental Status: She is alert and oriented to person, place, and time. Psychiatric: Mood and Affect: Mood normal. Filed Vitals: 04/26/23 1000 BP: 124/88 Pulse: 98 Temp: 98.2 ??F (36.8 ??C) TempSrc: Temporal SpO2: 99% Weight: 76.8 kg (169 lb 6.4 oz) Diagnoses/Impression: 1. Mild persistent asthma without complication 2. Snoring [facility] 3. Need for hepatitis C screening test HEPATITIS C ANTIBODY 4. Screening, lipid LIPID PANEL 5. Diabetes mellitus screening COMPREHENSIVE METABOLIC PANEL 6. Need for rwjutgjfbl-kflyiph-brzaladcc (Tdap) vaccine [[id number]] Adacel (Tdap) Recommendations and Plan: She will continue the same inhalers for asthma. She should continue healthy diet and exercise for 20-30 minutes 3-4 days a week. She will have screening labs done. She will have covid booster at pharmacy. She will see pulmonology/sleep medicine for sleep evaluation when scheduled. She will follow up in 1 year. Orders Placed This Encounter COMPREHENSIVE METABOLIC PANEL LIPID PANEL HEPATITIS C ANTIBODY [facility] [[id number]] Adacel (Tdap) Reviewed and updated this visit by provider: Tobacco Allergies Meds Problems Med Hx Surg Hx Fam Hx REJI HELLER PA-C Referring Provider: No ref. provider found PCP: REJI HELLER PA-C documented in this encounter Plan of Treatment Scheduled Referrals Name Type Priority Associated Diagnoses Orde r Schedule Ambulatory referral to Pulmonology ( [place]) Referral Routine Snoring Ordered: 04/26/2023 documented as of this encounter Results * HEPATITIS C ANTIBODY (04/28/2023 8:29 AM CDT) HEPATITIS C AB NON-REACTI VE NON-REACT SUNIL 04/28/2023 7:25 PM CDT [facility] Comment: ANTIBODIES TO HCV NOT DETECTED. DOES NOT EXCLUDE THE POSSIBILITY OF EXPOSURE TO HCV. 04/28/2023 8:29 AM CDT Reji Heller PA-C LABORATORY Final Resu lt [facility] [address] [place] [address], [id number] * LIPID PANEL (04/28/2023 8:29 AM CDT) CHOLESTEROL 168 <200 MG/DL 04/28/2023 4:21 PM CDT [facility] TRIGLYCERIDES 45 <150 MG/DL 04/28/2023 4:21 PM CDT [facility] HDL 74 >40 MG/DL 04/28/2023 4:21 PM CDT [facility] LDL-C 85 <100 MG/DL 04/28/2023 4:21 PM CDT [facility] VLDL CALCULATION 9 5 - 28 MG/DL 04/28/2023 4:21 PM CDT [facility] CHOL/HDL RATIO 2.3 0.0 - 4.0 04/28/2023 4:21 PM CDT [facility] LDL/HDL 1.1 0.41 - 2.13 04/28/2023 4:21 PM CDT [facility] NON HDL CHOLESTEROL 94 <140 MG/DL 04/28/2023 4:21 PM CDT [facility] 04/28/2023 8:29 AM CDT Reji M Rocio PA-C LABORATORY [facility] [address] [place] [address], * (ABNORMAL) COMPREHENSIVE METABOLIC PANEL (04/28/2023 8:29 AM CDT) [facility] SODIUM S/P/B 141 136 - 145 MMOL/L 04/28/2023 4:21 PM CDT [facility] POTASSIUM S/P/B 4.1 3.5 - 5.1 MMOL/L 04/28/2023 4:21 PM CDT -[facility] CHLORIDE S/P/B 106 98 - 107 MMOL/L 04/28/2023 4:21 PM CDT -[facility] CO2 23.0 21 - 32 MMOL/L 04/28/2023 4:21 PM CDT -[facility] GLUCOSE 93 70 - 99 MG/DL 04/28/2023 4:21 PM CDT -[facility] BUN 8 7 - 18 MG/DL 04/28/2023 4:21 PM CDT -[facility] CREATININE S/P/B 0.91 0.55 - 1.02 MG/DL 04/28/2023 4:21 PM CDT -[facility] CALCIUM S/P/B 8.8 8.4 - 10.5 MG/DL 04/28/2023 4:21 PM CDT [facility] BILIRUBIN TOTAL S/P/B 0.4 0.2 - 1.0 MG/DL 04/28/2023 4:21 PM CDT [facility] ALKALINE PHOSPHATASE S/P/B 64 37 - 98 U/L 04/28/2023 4:21 PM CDT -[facility] AST 16 15 - 37 U/L 04/28/2023 4:21 PM CDT [facility] ALT 21 14 - 59 U/L 04/28/2023 4:21 PM CDT [facility] TOTAL PROTEIN S/P/B 6.9 6.4 - 8.2 G/DL 04/28/2023 4:21 PM [facility] ALBUMIN S/P/B 3.8 3.4 - 5.0 G/DL 04/28/2023 4:21 PM CDT [facility] ANION GAP 12.0 5 - 15 MMOL/L 04/28/2023 4:21 PM CDT [facility] Comment:REFERENCE RANGE NOT ESTABLISHED OSMOLALITY (CALC) 290 MOSM/KG 023 4:21 PM CDT [facility] Comment:REFERENCE RANGE NOT ESTABLISHED GFR ESTIMATE 84(L) >90 ML/MIN/1. 73 M2 04/28/2023 4:21 PM T [facility] GFR NOTES GFR REFERENCE S: 04/28/2023 4:21 PM T [facility] Comment: THE ESTIMATED GFR IS CALCULATED USING [...] ml/min/1.73 m2 04/28/2023 8:29 AM CDT us Reji Heller PA-C LABORATORY Final Resu lt [facility] [address] [facility] [address], [place] [phone] documented in this encounter Visit Diagnoses Diagnosis Mild persistent asthma without complication (HHS/HCC)- Primary Unspecified asthma Snoring Other dyspnea and respiratory abnormality Need for hepatitis C screening test Special screening examination for other specified viral diseases Screening, lipid Screening for lipoid disorders Diabetes mellitus screening Screening for diabetes mellitus Need for zcihpvpojx-vnwdtwp-pcegcyqvt (Tdap) vaccine Need for prophylactic vaccination with combined ldlionihfm-lcftzpi-ygrvqtgms (DTP) vaccine documented in this encounter Care Teams Manager Hotel Relationship Specialty Start Date End Date Reji Heller PA-C [address] [place] [id number] PCP - General PHYSICIAN TRIMMING INSPECTOR 07/07/21 documented as of this encounter
--- OUTSIDE RECORDS SUMMARY | 2024-10-06 03:52 | XMS_ITS | Encounter Summary ---
Author Organization [facility] Address [address] [place] [address]. [place] [address] [place] [address] Care Team Providers Care Cold Roll Operator Name Role Phone Farheen Chan PA-C Primary Care Provider [phone]- [phone] Reason for Visit * Reason Onset Date Comments Refill Request 01/13/2022 Encounter Details Date Type Department Care Team (Late st Contact Info) Description 01/13/2022 Telephone [facility] Family Medicine - [place] [address] [place] [address] Farheen Chan PA-C [address] [place] [address] Refill Request Social History Tobacco [...] on file Sexual Orientation Not on file COVID-19 Exposure Response Date Recorded In the last 10 days, have yo u been in contact with someone who was confirmed or suspected to have Coronavirus/COVID-19? No / Unsure 01/05/2022 12:40 PM CDT documented as of this encounter Progress Notes * Ramonita Lobato MA - 01/13/2022 2:01 PM CDT [facility] called and stating that they can only do 90 days supply albuterol nebulizer solution Told pharmacy ok to fill 90 days supply FYI documented in this encounter Plan of Treatment Not on file documented as of this encounter Visit Diagnoses Not on filedocumented in this encounter Care Teams Cold Roll Operator Relationship Specialty Start Date End Date Farheen Chan PA-C [address] [place] [phone] PCP - General PHYSICIAN WINDOWS [employer] ADMINISTRATOR 07/07/21 documented as of this encounter
--- OUTSIDE RECORDS SUMMARY | 2024-10-06 03:52 | XMS_ITS | Clinical Summary ---
Author Organization [facility] Address [address] [place] [address]. [place] [address] [place] [address] Care Team Providers Care Roll On Man Name Role Phone Farheen Chan PA-C Primary Care Provider +1- [phone] Allergies No known active allergies Medications albuterol (2.5 MG/3ML) 0.083% nebulizer solutionIndicat ions:Mild persistent asthma without complication (HHS/HCC) Take 3 mLs (2.5 mg total) by nebulization every 6 (six) hours as needed for Wheezing. 360 mL 01/11/20 22 Active NEBULIZER DEVICE, DME,Indications :Mild persistent asthma without complication (HHS/HCC) Take 1 Device by nebulization every 6 (six) hours as needed. 1 Device 01/13/20 22 Active fluticasone-eloise meterol (ADVAIR DISKUS) 250-50 MCG/ACT inhalerIndicati ons:Mild persistent asthma without complication (HHS/HCC) Inhale 1 puff into the lungs 2 (two) times daily. 1 each 3 11/25/19 23 Active albuterol sulfate HFA 108 (90 Base) MCG/ACT inhalerIndicati ons:Mild persistent asthma without complication (HHS/HCC) INHALE 2 PUFFS INTO THE LUNGS EVERY 6 HOURS NEEDED FOR WHEEZING 18 g 01/29/20 24 Active albuterol sulfate HFA 108 (90 Base) MCG/ACT inhalerIndicati ons:Mild persistent asthma without complication (HHS/HCC) INHALE 2 PUFFS INTO LUNGS EVERY 6 HOURS NEEDED FOR WHEEZING 6.7 g 09/30/20 24 Active albuterol sulfate HFA 108 (90 Base) MCG/ACT inhalerIndicati ons:Mild persistent asthma without complication (HHS/HCC) INHALE 2 PUFFS INTO LUNGS EVERY 6 HOURS NEEDED FOR WHEEZING 6.7 g 1 08/05/20 24 2023 Discontinued Active Problems Problem Noted Date Diagnosed Date Snoring 04/26/2023 Mild persistent asthma without complication (HHS /HCC) 01/05/2022 Overweight with body mass index (BMI) 25.0-29.9 08/14/2019 Abnormal weight gain 06/11/2019 Overview (01/05/2022): Last Assessment & Plan: Overall Condition Chronic Condition: Uncontrolled. Treatment: New Medication: Added Topiramate to Phentermine. Follow up in 3 months Clinical Notes: I spent More than 25 minutes Face to Face with Patient during office visit. More than 50% duration was spent toward Detailed Counselling including various kinds of Dietory methods, activities, medications and potential weight loss surgical options. Detailed Handouts on each topics were also printed and hand-delivered to the patient. Family history of congenital heart defect 2015 Female infertility 01/22/2014 Irregular menstrual cycle 12/03/2013 Immunizations Name Administration Dates Next Due Dtap (Generic) 04/14/1993, 0,1988, 8,1988 Dtp (Generic) 05/08/2008 Hib 08/17/1990 MMR 04/14/1993,09/05/1989 Opv 04/14/1993, 0,1988, 8 PFIZER COVID-19 (ORIGINAL FORMULATION, PURPLE CAP) mRNA, LNP-S, PF, 30 MCG/0.3 ML DOSE 07/06/2021,06/15/2021 Td 03/15/1998 Tdap (Adacel) 04/26/2023 Family History Medical History Relation Comments Kidney Disease Father COPD Mother Cancer Mother Relation Status Comments Father Mother Social History Tobacco Use Types Packs/Day Years Used Date Smoking Tobacco: Never Smokeless Tobacco: Never Tobacco Cessation:Counseling Given: Yes Alcohol Use Standard Drinks/Week Comments Yes 3.3 [...] Sign Reading Time Taken Comments Blood Pressure 120/83 04/28/2023 9:09 AM CDT Pulse 99 04/28/2023 9:09 AM CDT Temperature 36.8 ??C (98.2 ??F) 04/26/2023 10:00 AM C DT Respiratory Rate 16 04/28/2023 9:09 AM CDT Oxygen Saturation 96% 04/28/2023 9:09 AM CDT Inhaled Oxygen Concentration - - Weight 76.2 kg (168 lb) 04/28/2023 9:09 AM CDT Height 168.9 cm (5' 6.5 ) 04/28/2023 9:09 AM CDT Body Mass Index 26.71 04/28/2023 9:09 AM CDT Plan of Treatment Health Maintenance Due Date Last Done Comments Cervical Cancer Screening Pap Smear (Age 30 to 64) Every 3 Years 1988 Annual Physical 1991 Pneumococcal Vaccine: Pediatrics (0 to 5 Years) and At-Risk Patients (6 to 64 Years) (1 of 2 - PCV) 1994 Hepatitis B Vaccines (1 of 3 - 19+ 3-dose series) 2007 Cervical Cancer Screening Pap with HPV Testing (Age 30 to 64) Every 5 Years 2018 Cervical Cancer Screening with HPV 2018 COVID-19 Vaccine (2023- season) 2024 07/06/2021, 06/15/2021 Influenza Adult (#1) 2024 DTaP, Tdap and Td Vaccines (7 - Td or Tdap) 04/26/2033 04/26/2023, 05/08/2008, 03/15/1998, Additional history exists Hepatitis C Completed 04/28/2023 HPV Vaccines Aged Out No longer eligi ble based on patient's age to complete this topic Meningococcal Vaccine Aged Out No brittany izabel eligible based on patient's age to complete this topic RSV Immunizations Under 20 Months Aged Out No longer eligible based on patient's age to complete this topic Procedures Procedure Name Priority Date/Time Associated Diagnosis Comments HEPATITIS C ANTIBODY Routine 04/28/2023 8:29 AM CDT Need for hepatitis C screening test from Last 3 Months or Most Recently Relevant to Health Maintenance Results * HEPATITIS C ANTIBODY (04/28/2023 8:29 AM CDT) HEPATITIS C AB NON-REACTI VE NON-REACT SUNIL 04/28/2023 7:25 PM CDT [facility] Comment: ANTIBODIES TO HCV NOT DETECTED. DOES NOT EXCLUDE THE POSSIBILITY OF EXPOSURE TO HCV. 04/28/2023 8:29 AM CDT us Farheen Chan PA-C LABORATORY Final Resu lt [facility] [address] [place] [address], [id number] from Last 3 Months or Most Recently Relevant to Health Maintenance [place] [address] [place] [address] Care Teams Roll On Man Relationship Specialty Start Date End Date Farheen Chan PA-C [address] [place] [phone] PCP - General PHYSICIAN OPERATING ROOM SCHEDULER 07/07/21
--- OUTSIDE RECORDS SUMMARY | 2024-10-06 03:52 | XMS_ITS | Encounter Summary ---
Author Organization [facility] Address [address] [place] [address]. [place], [place] [address] [place] [address] Care Team Providers Care Patternmaker Pressure Cast Name Role Phone Farheen Chan PA-C Primary Care Provider +1- [phone] Reason for Referral * Sleep Lab (Routine) - Closed Specialty Diagnoses / Procedures Referred By Contac t Referred To Contact Diagnoses Snoring Fatigue, unspecified type Overweight (BMI 25.0-29.9) Sleep apnea, unspecified type Morning headache Procedures Home Sleep Study - WatchPat ([id number]) Alexander Greenfield DO [address] [facility] [address] [place] [address] Phone: tel: fax: Referral ID Status Reason Start Date Expiration Date Visits Re quested Visits Authorized [id number] Closed 04/28/2023 04/28/2024 1 1 Reason for Visit * Reason Comments Obstructive Sleep Apnea Patient stated t hat she has been told that she stops breathing at night and that she snores; she does wake up with a dry mouth and sometimes with headaches, has issues falling asleep as well * Consultation (Routine) - Closed Specialty Diagnoses / Procedures Referred By Contact Referred To Contact SLEEP & RESPIRATORY CARE Diagnoses Snoring Procedures OFFICE/OUTPT VISIT,NEW,LEVL III OFFICE/OUTPT VISIT,NEW,LEVL IV OFFICE/OUTPT VISIT,NEW,LEVL V OFFICE/OUTPT VISIT,EST,LEVL III OFFICE/OUTPT VISIT,EST,LEVL IV OFFICE/OUTPT VISIT,EST,LEVL V Farheen Chan PA-C [address] [place] [address] Phone: tel: fax: [facility] [address] [place] [address] Phone: tel: fax: Referral ID Status Reason Start Date Expiration Date V isits Requested Visits Authorized [id number] Closed Specialty Services 04/26/2023 05/27/2024 99 99 Encounter Details Date Type Department Care Team (Latest Contact Info) Description 04/28/2023 9:20 AM CDT Office Visit [facility] - [address] [place] [address] Alexander Greenfield, [address] [facility] [address] [place] [address] Obstructive Sleep Apnea (Patient stated that she has been told that she stops breathing at night and that she snores; she does wake up with a dry mouth and sometimes with headaches, has issues falling asleep as well ) Social History Tobacco Use Types Packs/Day Years [...] Pulse 99 04/28/2023 9:09 AM CDT Temperature - - Respiratory Rate 16 04/28/2023 9:09 AM CDT Oxygen Saturation 96% 04/28/2023 9:09 AM CDT Inhaled Oxygen Concentration - - Weight 76.2 kg (168 lb) 04/28/2023 9:09 AM CDT Height 168.9 cm (5' 6.5 ) 04/28/2023 9:09 AM CDT Body Mass Index 26.71 04/28/2023 9:09 AM CDT documented in this encounter Patient Instructions * Patient Instructions* Alexander Greenfield DO - 04/28/2023 9:20 AM CDT PATIENT INSTRUCTIONS Please carefully review the following items that were discussed in your visit today: Please call the number I gave you to get your sleep study scheduled and completed. I will call you with results within 1 week of the study after it is completed. Return to clinic (to be determined based on above testing), or sooner if your symptoms change or worsen. Please do not hesitate to use [employer] or call ([phone]) our clinic with any questions or concerns It was my pleasure to take care of you today and I look forward to our next visit. Sincerely, Dr. Levi Greenfield Pulmonary Medicine [facility] documented in this encounter Progress Notes * Alexander Greenfield DO - 04/28/2023 9:20 AM CDT [facility] PULMONARY MEDICINE CLINIC NOTE History of Present Illness Licha Verduzco is a 33-year-old female who presented to our clinic for: Chief Complaint Patient presents with Obstructive Sleep Apnea Patient stated that she has been told that she stops breathing at night and that she snores; she does wake up with a dry mouth and sometimes with headaches, has issues falling asleep as well Initial Pulmonary OV 04/28/23: pt here for sleep issues. Having issues for several years but worsened over the last 1-2 years. Pt notes her has witnessed apneas and witnessed snoring. Waking up with SANDERS in am. Pt waking up frequently at night and having issues going back to sleep. Pt thinks she is getting approximately ~4-5h of actual sleep per night, not taking naps. On average she will wake up 3x per night. No nocturia. Pt endorses having afternoon/evening fatigue as well. -- notes asthma hx, on advair and albuterol, managed by PCP, doing well presently. Other Relevant Hx: FamHx: mom copd Occ: engineering director. Pets: 2 dogs. Exp: no significant ones. Imaging reviewed: Testing/Data reviewed: Labs: Echo: PFT: Sleep Data: Past Medical History: Diagnosis Date Anemia Asthma (HHS/HCC) Childhood GERD (gastroesophageal reflux disease) 2020 Past Surgical History: Procedure Laterality Date SECTION Social History Tobacco Use Smoking status: Never Smokeless tobacco: Never Vaping Use Vaping Use: Never used Substance Use Topics Alcohol use: Yes Alcohol/week: 3.3 standard drinks Types: 2 Glasses of wine per week Comment: Socially Drug use: Never Family History Problem Relation Name Age of Onset Cancer Mother Dipti Kang COPD Mother Dipti Kang Kidney Disease Father Stevan Kang Current Outpatient Medications Medication Sig Dispense Refill albuterol (2.5 MG/3ML) 0.083% nebulizer solution Take 3 mLs (2.5 mg total) by nebulization every 6 (six) hours as needed for Wheezing. 360 mL 0 albuterol sulfate HFA 108 (90 Base) MCG/ACT inhaler INHALE 2 PUFFS INTO THE LUNGS EVERY 6 HOURS NEEDED FOR WHEEZE 8.5 g 1 fluticasone-salmeterol (ADVAIR DISKUS) 250-50 MCG/ACT inhaler Inhale 1 puff into the lungs 2 (two) times daily. 1 each 3 NEBULIZER DEVICE, DME, Take 1 Device by nebulization every 6 (six) hours as needed. 1 Device 0 No current facility-administered medications for this visit. Review of patient's allergies indicates: No Known Allergies Immunization History Administered Date(s) Administered Dtap (Generic) 1988, 1988, 1988, 01/30/1990, 04/14/1993 Dtp (Generic) 05/08/2008 Hib 08/17/1990 MMR 09/05/1989, 04/14/1993 Opv 1988, 1988, 01/30/1990, 04/14/1993 PFIZER COVID-19 (ORIGINAL FORMULATION, PURPLE CAP) mRNA, LNP-S, PF, 30 MCG/0.3 ML DOSE 06/15/2021, 07/06/2021 Tb Evon Test 07/23/1997, 08/16/1997 Td 03/15/1998 Tdap (Adacel) 04/26/2023 Review of Systems Constitutional: Negative for malaise/fatigue and weight loss. HENT: Negative for congestion and sore throat. Respiratory: Negative for cough, hemoptysis, sputum production, shortness of breath and wheezing. Cardiovascular: Negative for chest pain, palpitations, orthopnea, leg swelling and PND. Endo/Heme/Allergies: Negative for environmental allergies. Psychiatric/Behavioral: The patient does not have insomnia. Physical Exam Filed Vitals: 04/28/23 0909 BP: 120/83 Pulse: 99 Resp: 16 SpO2: 96% Weight: 76.2 kg (168 lb) Height: 5' 6.5 (1.689 m) GEN: Pleasant, in NAD NEURO: Alert, oriented x3, no focal neurologic deficits noted PSYCH: Affect is normal HEAD: NC, AT EENT: No sinus tenderness to palpation, mallampati 2 NECK: Supple, trachea midline LN: No appreciable cervical lymphadenopathy to palpation PULM: non-labored, CTAB, no wheezes/crackles HEART: normal s1,s2, rrr, no audible murmur GI: non-distended, bs+ MSK: Normal range of motion of b/l hand/wrist joints without effusion or joint tenderness EXTR: No clubbing, no edema Skin: No visible rashes, no visible tattoos Assessment #. High Risk for MARI -- Initial Sx: + snoring, + apnea, + SANDERS, + daytime fatigue, frequent awakenings at night. -- work up: in progress -- Treament: none #. Overweight Body mass index is 26.71 kg/m??. # asthma As per pcp, on adviar and albuterol prn. Doing well presently. Plan -- -- Discussed potential therapeutic options for MARI including wt loss, oral appliance, CPAP, and surgery, -- ordered a HSAT, if normal plan for in lab study based on her sx as above. RTC tbd Dr. Levi Greenfield [facility] Pulmonary Medicine documented in this encounter Plan of Treatment Not on file documented as of this encounter Results * Home Sleep Study - WatchPat ([id number]) (05/25/2023 1:00 PM CDT) Narrative [facility] - 05/25/2023 1:00 PM CDT Santos Stoll MD ? 06/22/2023 11:33 AM [facility]? [place], [place] HOME SLEEP STUDY INTERPRETATION PATIENT NAME: [...] snoring and other sleep-related issues, such as HEAD OF PARTNER DEVELOPMENT depressants, especially at bedtime. This document was electronically signed by: Santos Stoll M.D. on 05/26/2023 at 5:15 PM. Alexander Greenfield DO SLEEP CENTER ORDERABLES Fi nal Result [facility] [address] [place], [place] [address] [phone] documented in this encounter Visit Diagnoses Diagnosis Snoring- Primary Other dyspnea and respiratory abnormality Fatigue, unspecified type Overweight (BMI 25.0-29.9) Overweight Sleep apnea, unspecified type Morning headache Headache Snoring Other dyspnea and respiratory abnormality Fatigue, unspecified type Overweight (BMI 25.0-29.9) Overweight Sleep apnea, unspecified type Morning headache Headache documented in this encounter Care Teams Patternmaker Pressure Cast Relationship Specialty Start Date End Date Farheen Chan PA-C [address] [place] [address] PCP - General PHYSICIAN CODING AUDITOR 07/07/21 documented as of this encounter
--- OUTSIDE RECORDS SUMMARY | 2024-10-06 03:52 | XMS_ITS | Encounter Summary ---
Author Organization [facility] Address [address] [place] [address]. [place] [address] [place] [address] Care Team Providers Care Health Care Recruiter Name Role Phone Farheen Chan PA-C Primary Care Provider +1- [phone] Reason for Visit * Reason Onset Date Comments Results 06/26/2023 Encounter Details Date Type Department Care Team (Late st Contact Info) Description 06/26/2023 Telephone [facility] Multispecialty Care - [facility] [address] [place] [address] Alexander Greenfield DO [address] [facility] [address] [place] [address] Results Social History Tobacco Use Types Packs/Day Years [...] of this encounter Progress Notes * Mecca Ann, GRAIN PROCESSOR - 07/10/2023 2:56 PM CDT Called patient and provided the information and results per Dr. Greenfield. Patient stated that she wants to think about it and will get back with us if she wants to do the in lab diagnostic psg. * Matt Jeong MA - 06/30/2023 4:20 PM CDT Not urgent * Mecca Ann CRT - 06/26/2023 7:05 AM CDT ----- Message from Alexander Greenfield DO sent at 06/25/2023 4:58 PM CDT ----- Please inform patient: Your HSAT did not show sleep apnea. However HSAT can underestimate. Given your symptoms you described feel should move forward with in lab sleep study. HSAT 05/25/23: AHI 1.1/h, RDI 7.5/h Plan: -- offer/order in lab sleep study. Diagnostic. Thanks, Dr. Levi Greenfield [facility] Pulmonary Medicine documented in this encounter Plan of Treatment Not on file documented as of this encounter Visit Diagnoses Not on filedocumented in this encounter Care Teams Health Care Recruiter Relationship Specialty Start Date End Date Farheen Chan PA-C [address] [place] [address]. [place] [address] PCP - General PHYSICIAN CHAIN HOIST OPERATOR 07/07/21 documented as of this encounter
--- OUTSIDE RECORDS SUMMARY | 2024-10-06 03:52 | XMS_ITS | Encounter Summary ---
Author Organization [facility] Address [address] [place] [address]. [place] [address] [place] [address] Care Team Providers Care Marine Painter Name Role Phone Farheen Chan PA-C Primary Care Provider +1- [phone] Encounter Details Date Type Department Care Team (Latest Contact Info) Description 05/25/2023 Travel Social History Tobacco Use Types Packs/Day [...] on filedocumented in this encounter Care Teams Marine Painter Relationship Specialty Start Date End Date Farheen Chan PA-C [address] [place] [address] PCP - General PHYSICIAN CERAMIC TILE SETTER 07/07/21 documented as of this encounter
--- OUTSIDE RECORDS SUMMARY | 2024-10-06 03:52 | XMS_ITS | Encounter Summary ---
Author Organization [facility] Address [address] [place] [address]. [place] [address] [place] [address] Care Team Providers Care Electrician'S Assistant Name Role Phone Farheen Chan PA-C Primary Care Provider +1- [phone] Encounter Details Date Type Department Care Team (Late st Contact Info) Description 04/28/2023 - 04/28/2023 11:59 PM CDT Hospital Encounter [facility] [address] [place] [address] Farheen Chan PA-C [address] [facility]. [place], [place] [address] Discharge Disposition: Home or Self Care (Routine [...] 04/24/2023 3 documented as of this encounter Plan of Treatment Not on file documented as of this encounter Visit Diagnoses Not on filedocumented in this encounter Care Teams Electrician'S Assistant Relationship Specialty Start Date End Date Farheen Chan PA-C [address] [place] [address]. [place] [address] PCP - General PHYSICIAN HARDWOOD FALLER 07/07/21 documented as of this encounter
--- OUTSIDE RECORDS SUMMARY | 2024-10-06 03:52 | XMS_ITS | Encounter Summary ---
Author Organization [facility] Address [address] [place] [address]. [place] [address] [place] [address] Care Team Providers Care Sales Consulting Director Name Role Phone Farheen Chan PA-C Primary Care Provider +1- [phone] Encounter Details Date Type Department Care Team (Latest Contact Info) Description 04/26/2023 Travel Social History Tobacco Use Types Packs/Day [...] on filedocumented in this encounter Care Teams Sales Consulting Director Relationship Specialty Start Date End Date Farheen Chan PA-C [address] [place] [address] PCP - General PHYSICIAN HONING MACHINE OPERATOR SEMIAUTOMATIC 07/07/21 documented as of this encounter
--- OUTSIDE RECORDS SUMMARY | 2024-10-06 03:52 | XMS_ITS | Clinical Summary ---
Author Organization [facility] Address [address] [facility] [address] Care Team Providers Care Cupola Operator Name Role Phone Esteban Massey MD Primary Care Provider Unav ailable Source Comments [facility],non-owned Affiliates and Associated Physician Practices is amultiple site organization consisting of ambulatory clinics and hospital sitesin [place], [place], [place] and [place]. This disclosure is being madepursuant to the Care Everywhere program and may not contain all information available regarding this patient. Last updated 18.[facility] Allergies No known active allergies Medications * Be aware that medications may not be up to date on this document. Alwaysverify current medications with the patient. Medication Sig Dispensed Refills Start Date End Date Status albuterol HFA (PROVENTIL;VENTOLIN;AZ OAIR) 108 (90 BASE) MCG/ACT inhaler Inhale 2 Puffs by mouth every 6 hours as needed Active Vit-Fe Fumarate-FA ( VITAMIN) 28-0.8 MG tablet Take 1 Tab by mouth once daily Active Active Problems Problem Noted Date Diagnosed Date Family history of congenital heart defect 2015 Family History Medical History Relation Name Comments Cancer Father Kidney Disease Father Heart Disease Maternal Aunt Heart Disease Maternal Grandmother Cancer Mother Heart Disease Mother Twins Mother Relation Name Status Comments Father Alive Maternal Aunt Maternal Grandfather Maternal Grandmother Mother Paternal Grandfather Paternal Grandmother Alive Social History Tobacco Use Types Packs/Day Years Used Date Smoking Tobacco: Former Cigarettes 0.3 8.6 S tarted: 03/02/2016 Smokeless Tobacco: Never Sex and Gender Information Value Date Recorded Sex Assigned at Not on file Gender Identity Not on file Sexual Orientation Not on file Last Filed Vital Signs Vital Sign Reading Time Taken Comments Blood Pressure 117/67 08/22/2016 1:41 PM SECONDARY SOCIAL STUDIES TEACHER Pulse 82 08/22/2016 1:41 PM SECONDARY SOCIAL STUDIES TEACHER Temperature - - Respiratory Rate - - Oxygen Saturation - - Inhaled Oxygen Concentration - - Weight 79.8 kg (176 lb) 08/22/2016 1:41 PM SECONDARY SOCIAL STUDIES TEACHER Height 170.2 cm (5' 7 ) 08/22/2016 1:41 PM SECONDARY SOCIAL STUDIES TEACHER Body Mass Index 27.57 08/22/2016 1:41 PM SECONDARY SOCIAL STUDIES TEACHER Plan of Treatment Health Maintenance Due Date Last Done Comments PAP SMEAR 1988 HIV SCREENING 2003 HEPATITIS C SCREENING 04/04/2006 DTAP/TDAP/TD VACCINES (1 - Tdap) 2007 HEPATITIS B VACCINE (1 of 3 - 19+ 3-dose series) 2007 DEPRESSION SCREENING 10/02/2023 COVID-19 VACCINE (1 - 2023-2 5 season) 2024 INFLUENZA VACCINE (#1) 2024 ZOSTER VACCINE (1 of 2) 2038 HIB VACCINE Aged Out No longer eligi ble based on patient's age to complete this topic HPV VACCINE Aged Out No longer eligi ble based on patient's age to complete this topic MENINGOCOCCAL VACCINE Aged Out No brittany izabel eligible based on patient's age to complete this topic PNEUMOCOCCAL VACCINE Aged Out No long er eligible based on patient's age to complete this topic Care Teams Cupola Operator Relationship Specialty Start Date End Date Esteban Massey MD PCP - General Family Medicine 08/22/16
--- OUTSIDE RECORDS SUMMARY | 2024-10-06 03:53 | XMS_ITS | Encounter Summary ---
Author Organization [facility] Address [address] [place] [address]. [place] [address] [place] [address] Care Team Providers Care Adaptive Physical Educator Name Role Phone Farheen Chan PA-C Primary Care Provider +1- [phone] Reason for Visit * Reason Comments Procedure (SCAN) Encounter Details Date Type Department Care Team (Late st Contact Info) Description 06/14/2015 Scan [facility] HEALTH INFO SRVCS Scanned, Documents Procedure (SCAN) Social History Tobacco Use Types Packs/Day Years Used Date Smoking Tobacco: Never Assessed Comments Unknown Sex and Gender Information Value Date Recorded Sex Assigned at Not on file Legal Sex Female 7:38 PM CDT Gender Identity Not on file Sexual Orientation Not on file documented as of this encounter Plan of Treatment Not on file documented as of this encounter Procedures Procedure Name Priority Date/Time Associated Diagnosis Comments PROCEDURE GENERIC (SCAN ORDER) 06/14/2015 documented in this encounter Results * PROCEDURE GENERIC (06/14/2015) 06/14/2015 Narrative 06/14/2015 Ordered by an unspecified provider. us Documents Scanned SCANNING Final Result documented in this encounter Visit Diagnoses Not on filedocumented in this encounter Care Teams Adaptive Physical Educator Relationship Specialty Start Date End Date Farheen Chan PA-C [address] [place] [address]. [place] [address] PCP - General PHYSICIAN TRIM ATTACHER 07/07/21 documented as of this encounter
--- OUTSIDE RECORDS SUMMARY | 2024-10-06 03:53 | XMS_ITS | Encounter Summary ---
Author Organization [facility] Address [address] [place] [address]. [place] [address] [place] [address] Care Team Providers Care Overhauler Bus Truck Name Role Phone Farheen Chan PA-C Primary Care Provider +1- [phone] Reason for Visit * Reason Onset Date Comments Medication Problem 01/12/2022 Encounter Details Date Type Department Care Team (Late st Contact Info) Description 01/12/2022 Telephone [facility] Family Medicine - [place] [address] Farheen Chan PA-C [address] [place], [place] [id number] Medication Problem Social History Tobacco Use Types Packs/Day Years [...] as of this encounter Progress Notes * Farheen Chan PA-C - 01/12/2022 10:53 AM CDT Signed scripts * Ramonita Lobato MA - 01/12/2022 10:44 AM CDT Please sign pending rx * Michelle Argueta - 01/12/2022 10:32 AM CDT Call back [phone] Ref# [id number] NEBULIZER DEVICE, DME, Pharmasist needs instructions for additional supplies. This order comes with everything that is needed. They are also needing a prescription for the solution for the machine. Fx: [phone] documented in this encounter Plan of Treatment Not on file documented as of this encounter Visit Diagnoses Diagnosis Mild persistent asthma without complication (HHS/HCC)- Primary Unspecified asthma documented in this encounter Care Teams Overhauler Bus Truck Relationship Specialty Start Date End Date Farheen Chan PA-C [address] [place] [address] PCP - General PHYSICIAN MULTIMEDIA ENGINEER 07/07/21 documented as of this encounter
--- OUTSIDE RECORDS SUMMARY | 2024-10-06 03:53 | XMS_ITS | Encounter Summary ---
Author Organization [facility] Address [address] [place] [address]. [place] [address] [place] [address] Care Team Providers Care Grind Operator Name Role Phone Farheen Chan PA-C Primary Care Provider +1- [phone] Encounter Details Date Type Department Care Team (Latest Contact Info) Description 04/27/2010 Scan HEALTH INFO SRVCS Scanned, Documents Social History Tobacco Use Types Packs/Day Years [...] on filedocumented in this encounter Care Teams Grind Operator Relationship Specialty Start Date End Date Farheen Chan PA-C [address] [place] [address] PCP - General PHYSICIAN RUG CLIPPER 07/07/21 documented as of this encounter
--- OUTSIDE RECORDS SUMMARY | 2024-10-06 03:53 | XMS_ITS | Encounter Summary ---
Author Organization [facility] Address [address] [place] [address]. [place] [address] [place] [address] Care Team Providers Care Bakery Team Member Name Role Phone Farheen Chan PA-C Primary Care Provider +1- [phone] Encounter Details Date Type Department Care Team (Latest Contact Info) Description 02/16/2021 Scan HEALTH INFO SRVCS Scanned, Documents Social [...] on filedocumented in this encounter Care Teams Bakery Team Member Relationship Specialty Start Date End Date Farheen Chan PA-C [address] [place] [address] PCP - General PHYSICIAN ORE FIELDER 07/07/21 documented as of this encounter
--- OUTSIDE RECORDS SUMMARY | 2024-10-06 03:53 | XMS_ITS | Encounter Summary ---
Author Organization [facility] Address [address] [place] [address]. [place] [address] [place] [address] Care Team Providers Care Brass Cutter Name Role Phone Farheen Chan PA-C Primary Care Provider +1- [phone] Reason for Visit * Reason Comments Ultrasound (SCAN) Encounter Details Date Type Department Care Team (Late st Contact Info) Description 03/08/2021 Scan [facility] HEALTH INFO SRVCS Scanned, Documents Ultrasound (SCAN) Social History Tobacco Use Types Packs/Day [...] Procedure Name Priority Date/Time Associated Diagnosis Comments ULTRASOUND GENERIC (SCAN ORDER) 03/08/2021 documented in this encounter Results * ULTRASOUND GENERIC (03/08/2021) Anatomical Region Laterality Modality Other 03/08/2021 Narrative 03/08/2021 Ordered by an unspecified provider. us Documents Scanned SCANNING Final Result documented in this encounter Visit Diagnoses Not on filedocumented in this encounter Care Teams Brass Cutter Relationship Specialty Start Date End Date Farheen Chan PA-C [address] [place] [address] PCP - General PHYSICIAN AUTOMOTIVE PARTS COUNTERPERSON 07/07/21 documented as of this encounter
--- OUTSIDE RECORDS SUMMARY | 2024-10-06 03:53 | XMS_ITS | Encounter Summary ---
Author Organization [facility] Address [address] [place] [address]. [place] [address] [place] [address] Care Team Providers Care Burr Bench Operator Name Role Phone Farheen Chan PA-C Primary Care Provider +1- [phone] Encounter Details Date Type Department Care Team (Latest Contact Info) Description 02/23/2011 Scan HEALTH INFO SRVCS Scanned, Documents Social [...] on filedocumented in this encounter Care Teams Burr Bench Operator Relationship Specialty Start Date End Date Farheen Chan PA-C [address] [place] [address] PCP - General PHYSICIAN SPOOL SALVAGER 07/07/21 documented as of this encounter
--- OUTSIDE RECORDS SUMMARY | 2024-10-06 03:53 | XMS_ITS | Encounter Summary ---
Author Organization [facility] Address [address] [place] [address]. [place] [address] [place] [address] Care Team Providers Care Neurology Tech Name Role Phone Farheen Chan PA-C Primary Care Provider +1- [phone] Encounter Details Date Type Department Care Team (Latest Contact Info) Description 10/14/2020 Scan HEALTH INFO SRVCS Scanned, Documents Social [...] on filedocumented in this encounter Care Teams Neurology Tech Relationship Specialty Start Date End Date Farheen Chan PA-C [address] [place] [address] PCP - General PHYSICIAN LAUNDERETTE ATTENDANT 07/07/21 documented as of this encounter
--- OUTSIDE RECORDS SUMMARY | 2024-10-06 03:53 | XMS_ITS | Encounter Summary ---
Author Organization [facility] Address [address] [place] [address]. [place] [address] [place] [address] Care Team Providers Care Coronary Care Unit Nurse Name Role Phone Farheen Chan PA-C Primary Care Provider +1- [phone] Reason for Visit * Reason Comments Lab (SCAN) Encounter Details Date Type Department Care Team (Latest Contact Info) Description 07/31/2014 Scan MG HEALTH INFO SRVCS Scanned, Documents Lab (SCAN) Social History Tobacco Use Types Packs/Day [...] Procedure Name Priority Date/Time Associated Diagnosis Comments OUTSIDE LAB (SCAN ORDER) 07/31/2014 documented in this encounter Results * OUTSIDE LAB (SCAN) (07/31/2014) 07/31/2014 Narrative 07/31/2014 Ordered by an unspecified provider. us Documents Scanned SCANNING Final Result documented in this encounter Visit Diagnoses Not on filedocumented in this encounter Care Teams Coronary Care Unit Nurse Relationship Specialty Start Date End Date Farheen Chan PA-C [address] [place] [address]. [place] [address] PCP - General PHYSICIAN ELECTRICAL ENGINEERING PROFESSOR 07/07/21 documented as of this encounter
--- OUTSIDE RECORDS SUMMARY | 2024-10-06 03:53 | XMS_ITS | Encounter Summary ---
Author Organization [facility] Address [address] [place] [address]. [place] [address] [place] [address] Care Team Providers Care Fax Machine Operator Name Role Phone Farheen Chan PA-C Primary Care Provider +1- [phone] Encounter Details Date Type Department Care Team (Latest Contact Info) Description 03/19/2014 Scan HEALTH INFO SRVCS Scanned, Documents Social [...] on filedocumented in this encounter Care Teams Fax Machine Operator Relationship Specialty Start Date End Date Farheen Chan PA-C [address] [place] [address] PCP - General PHYSICIAN CONSULTING SERVICES ASSOCIATE 07/07/21 documented as of this encounter
--- OUTSIDE RECORDS SUMMARY | 2024-10-06 03:53 | XMS_ITS | Encounter Summary ---
Author Organization [facility] Address [address] [place] [address]. [place] [address] [place] [address] Care Team Providers Care Maxillofacial Prosthetics Dentist Name Role Phone Farheen Chan PA-C Primary Care Provider +1- [phone] Encounter Details Date Type Department Care Team (Latest Contact Info) Description 08/03/2004 Scan HEALTH INFO SRVCS Scanned, Documents Social [...] on filedocumented in this encounter Care Teams Maxillofacial Prosthetics Dentist Relationship Specialty Start Date End Date Farheen Chan PA-C [address] [place] [address] PCP - General PHYSICIAN FELLER OPERATOR 07/07/21 documented as of this encounter
--- OUTSIDE RECORDS SUMMARY | 2024-10-06 03:53 | XMS_ITS | Encounter Summary ---
Author Organization [facility] Address [address] [place] [address]. [place] [address] [place] [address] Care Team Providers Care High School Hvac R Instructor Name Role Phone Farheen Chan PA-C Primary Care Provider +1- [phone] Encounter Details Date Type Department Care Team (Latest Contact Info) Description 08/28/2015 Scan HEALTH INFO SRVCS Scanned, Documents Social [...] on filedocumented in this encounter Care Teams High School Hvac R Instructor Relationship Specialty Start Date End Date Farheen Chan PA-C [address] [place] [address] PCP - General PHYSICIAN SORTING MACHINE ATTENDANT 07/07/21 documented as of this encounter
--- OUTSIDE RECORDS SUMMARY | 2024-10-06 03:53 | XMS_ITS | Encounter Summary ---
Author Organization [facility] Address [address] [place] [address]. [place] [address] [place] [address] Care Team Providers Care Hair Clipper Power Name Role Phone Farheen Chan PA-C Primary Care Provider +1- [phone] Encounter Details Date Type Department Care Team (Latest Contact Info) Description 11/23/2004 Scan HEALTH INFO SRVCS Scanned, Documents Social [...] on filedocumented in this encounter Care Teams Hair Clipper Power Relationship Specialty Start Date End Date Farheen Chan PA-C [address] [place] [address] PCP - General PHYSICIAN DIP FILLER 07/07/21 documented as of this encounter
--- OUTSIDE RECORDS SUMMARY | 2024-10-06 03:53 | XMS_ITS | Encounter Summary ---
Author Organization [facility] Address [address] [place] [address]. [place] [address] [place] [address] Care Team Providers Care Home Health Nurse Name Role Phone Farheen Chan PA-C Primary Care Provider +1- [phone] Encounter Details Date Type Department Care Team (Latest Contact Info) Description 05/01/2013 Scan HEALTH INFO SRVCS Scanned, Documents Social [...] on filedocumented in this encounter Care Teams Home Health Nurse Relationship Specialty Start Date End Date Farheen Chan PA-C [address] [place] [address] PCP - General PHYSICIAN SOCIAL SCIENCE PROFESSOR 07/07/21 documented as of this encounter
--- OUTSIDE RECORDS SUMMARY | 2024-10-06 03:53 | XMS_ITS | Encounter Summary ---
Author Organization [facility] Address [address] [place] [address]. [place] [address] [place] [address] Care Team Providers Care Tray Casting Machine Operator Name Role Phone Farheen Chan PA-C Primary Care Provider +1- [phone] Reason for Visit * Reason Comments Lab (SCAN) Encounter Details Date Type Department Care Team (Latest Contact Info) Description 02/07/2017 Scan MG HEALTH INFO SRVCS Scanned, Documents [...] Associated Diagnosis Comments OUTSIDE LAB (SCAN ORDER) 02/07/2017 OUTSIDE LAB (SCAN ORDER) 02/07/2017 OUTSIDE LAB (SCAN ORDER) 02/07/2017 OUTSIDE LAB (SCAN ORDER) 02/07/2017 documented in this encounter Results * OUTSIDE LAB (SCAN) (02/07/2017) 02/07/2017 Narrative 02/07/2017 Ordered by an unspecified provider. us Documents Scanned SCANNING Final Result * OUTSIDE LAB (SCAN) (02/07/2017) 02/07/2017 Narrative 02/07/2017 Ordered by an unspecified provider. us Documents Scanned SCANNING Final Result * OUTSIDE LAB (SCAN) (02/07/2017) 02/07/2017 Narrative 02/07/2017 Ordered by an unspecified provider. us Documents Scanned SCANNING Final Result * OUTSIDE LAB (SCAN) (02/07/2017) 02/07/2017 Narrative 02/07/2017 Ordered by an unspecified provider. us Documents Scanned SCANNING Final Result documented in this encounter Visit Diagnoses Not on filedocumented in this encounter Care Teams Tray Casting Machine Operator Relationship Specialty Start Date End Date Farheen Chan PA-C [address] [place] [address] PCP - General PHYSICIAN POLICE CAPTAIN SENIOR 07/07/21 documented as of this encounter
--- OUTSIDE RECORDS SUMMARY | 2024-10-06 03:53 | XMS_ITS | Encounter Summary ---
Author Organization [facility] Address [address] [place] [address]. [place] [address] [place] [address] Care Team Providers Care Polisher Eyeglass Frames Name Role Phone Reji Heller PA-C Primary Care Provider +1- [phone] Reason for Visit * Reason Comments Asthma patient here follow up for asthma Encounter Details Date Type Department Care Team (Late st Contact Info) Description 01/05/2022 1:00 PM CDT Office Visit [facility] - [place] [address] [place] [phone] Reji Heller PA-C [address] [place] [address] Asthma (patient here follow up for asthma ) Social History Tobacco Use Types Packs/Day [...] PM CDT documented as of this encounter Last Filed Vital Signs Vital Sign Reading Time Taken Comments Blood Pressure 118/76 01/05/2022 1:01 PM CDT Pulse 97 01/05/2022 1:01 PM CDT Temperature 36.5 ??C (97.7 ??F) 01/05/2022 1:01 PM CD T Respiratory Rate - - Oxygen Saturation 96% 01/05/2022 1:01 PM CDT Inhaled Oxygen Concentration - - Weight 70.3 kg (155 lb) 01/05/2022 1:01 PM CDT Height 168.9 cm (5' 6.5 ) 01/05/2022 1:01 PM CDT Body Mass Index 24.64 01/05/2022 1:01 PM CDT documented in this encounter Progress Notes * Reji Heller PA-C - 01/05/2022 1:00 PM CDT Reason for Visit: Asthma (patient here follow up for asthma ) History of Present Illness: Patient here for asthma follow up. Takes dulera daily and feels her asthma is well controlled on it. She does want to try a different inhaler as the dulera is expensive. She rarely uses the albuterol. Tries to follow diet and exercise. She sees food trades assistants for well woman exam. Denies any complaints. ROS: Review of Systems Respiratory: Negative for shortness of breath. Cardiovascular: Negative for chest pain. Psychiatric/Behavioral: Negative for suicidal ideas. All other systems reviewed and are negative. Medications: Current Outpatient Medications: ??? albuterol sulfate HFA 108 (90 Base) MCG/ACT inhaler, Inhale 2 puffs into the lungs every 6 (six) hours as needed for Wheezing., Disp: 18 g, Rfl: 5 ??? fluticasone-salmeterol 250-50 MCG/DOSE inhaler, Inhale 1 puff into the lungs 2 (two) times daily., Disp: 60 each, Rfl: 5 ??? 28-0.8 MG tablet, Take 1 tablet by mouth daily., Disp: , Rfl: No Known Allergies Past Medical History: Diagnosis Date ??? Anemia Past Surgical History: Procedure Laterality Date ??? SECTION Social History Socioeconomic History ??? Marital status: Spouse name: Not on file ??? Number of children: Not on file ??? Years of education: Not on file ??? Highest education level: Not on file Occupational History ??? Not on file Tobacco Use ??? Smoking status: Never Smoker ??? Smokeless tobacco: Never Used Vaping Use ??? Vaping Use: Never used Substance and Sexual Activity ??? Alcohol use: Yes Comment: Socially ??? Drug use: Not on file ??? Sexual activity: Never Other Topics Concern ??? Not on file Social History Narrative ??? Not on file Social Determinants of Health Financial Resource Strain: Not on file Food Insecurity: Not on file Transportation Needs: Not on file Physical Activity: Not on file Stress: Not on file Social Connections: Not on file Intimate Partner Violence: Not on file E-Cigarettes Questions Responses E-Cigarette Use Never User No family history on file. Family Status Relation Name Status ??? Mother ??? Father Physical Exam Vitals reviewed. Constitutional: Appearance: Normal appearance. Neck: Thyroid: No thyromegaly. Cardiovascular: Rate and Rhythm: Normal rate and regular rhythm. Pulmonary: Effort: Pulmonary effort is normal. Breath sounds: Normal breath sounds. Musculoskeletal: Right lower leg: No edema. Left lower leg: No edema. Neurological: Mental Status: She is alert. Psychiatric: Mood and Affect: Mood normal. Filed Vitals: 01/05/22 1301 BP: 118/76 Pulse: 97 Temp: 97.7 ??F (36.5 ??C) TempSrc: Temporal SpO2: 96% Weight: 70.3 kg (155 lb) Height: 5' 6.5 (1.689 m) PainSc: 0 (0-10 Scale) Diagnoses/Impression: 1. Mild persistent asthma without complication fluticasone-salmeterol 250-50 MCG/DOSE inhaler albuterol sulfate HFA 108 (90 Base) MCG/ACT inhaler 2. Need for hepatitis C screening test HEPATITIS C AB ([facility] ONLY) 3. Screening, lipid LIPID PANEL 4. Screening for diabetes mellitus COMPREHENSIVE METABOLIC PANEL Recommendations and Plan: She will try advair instead of dulera to see if it is cheaper. She will continue albuterol inhaler (will try proventil as they don't cover proair anymore). She is planning to get her covid booster inthe future. She will have screening labs and follow up in 6 months. Orders Placed This Encounter ??? COMPREHENSIVE METABOLIC PANEL ??? LIPID PANEL ??? HEPATITIS C AB ([facility] ONLY) ??? 28-0.8 MG tablet ??? fluticasone-salmeterol 250-50 MCG/DOSE inhaler ??? albuterol sulfate HFA 108 (90 Base) MCG/ACT inhaler Reviewed and updated this visit by provider: Tobacco Allergies Meds Problems Med Hx Surg Hx Fam Hx REJI HELLER PA-C Referring Provider: No ref. provider found PCP: REJI HELLER PA-C documented in this encounter Plan of Treatment Not on file documented as of this encounter Visit Diagnoses Diagnosis Mild persistent asthma without complication (HHS/HCC)- Primary Unspecified asthma Need for hepatitis C screening test Special screening examination for other specified viral diseases Screening, lipid Screening for lipoid disorders Screening for diabetes mellitus documented in this encounter Care Teams Polisher Eyeglass Frames Relationship Specialty Start Date End Date Reji Heller PA-C [address] [place] [address] PCP - General PHYSICIAN COMMUNITY ENGAGEMENT MANAGER 07/07/21 documented as of this encounter
--- OUTSIDE RECORDS SUMMARY | 2024-10-06 03:53 | XMS_ITS | Encounter Summary ---
Author Organization [facility] Address [address] [place] [address]. [place] [address] [place] [address] Care Team Providers Care Material Checker Name Role Phone Farheen Chan PA-C Primary Care Provider +1- [phone] Encounter Details Date Type Department Care Team (Latest Contact Info) Description 04/30/2014 Scan HEALTH INFO SRVCS Scanned, Documents Social [...] on filedocumented in this encounter Care Teams Material Checker Relationship Specialty Start Date End Date Farheen Chan PA-C [address] [place] [address] PCP - General PHYSICIAN AUTOMATIC VULCANIZING LEAD OPERATOR 07/07/21 documented as of this encounter
--- OUTSIDE RECORDS SUMMARY | 2024-10-06 03:53 | XMS_ITS | Encounter Summary ---
Author Organization [facility] Address [address] [place] [address]. [place] [address] [place] [address] Care Team Providers Care Passenger Car Cleaning Supervisor Name Role Phone Farheen Chan PA-C Primary Care Provider +1- [phone] Encounter Details Date Type Department Care Team (Latest Contact Info) Description 02/04/2019 Scan HEALTH INFO SRVCS Scanned, Documents Social [...] on filedocumented in this encounter Care Teams Passenger Car Cleaning Supervisor Relationship Specialty Start Date End Date Farheen Chan PA-C [address] [place] [address] PCP - General PHYSICIAN EDGE STITCHER 07/07/21 documented as of this encounter
--- OUTSIDE RECORDS SUMMARY | 2024-10-06 03:53 | XMS_ITS | Encounter Summary ---
Author Organization [facility] Address [address] [place] [address]. [place] [address] [place] [address] Care Team Providers Care Product Safety Technical Assistant Name Role Phone Farheen Chan PA-C Primary Care Provider +1- [phone] Encounter Details Date Type Department Care Team (Latest Contact Info) Description 07/18/2017 Scan HEALTH INFO SRVCS Scanned, Documents Social [...] on filedocumented in this encounter Care Teams Product Safety Technical Assistant Relationship Specialty Start Date End Date Farheen Chan PA-C [address] [place] [address] PCP - General PHYSICIAN OFFICE MANAGER 07/07/21 documented as of this encounter
--- OUTSIDE RECORDS SUMMARY | 2024-10-06 03:53 | XMS_ITS | Encounter Summary ---
Author Organization [facility] Address [address] [place] [address]. [place] [address] [place] [address] Care Team Providers Care Architectural Coating Finisher Name Role Phone Farheen Chan PA-C Primary Care Provider +1- [phone] Encounter Details Date Type Department Care Team (Latest Contact Info) Description 05/25/2016 Scan HEALTH INFO SRVCS Scanned, Documents Social [...] on filedocumented in this encounter Care Teams Architectural Coating Finisher Relationship Specialty Start Date End Date Farheen Chan PA-C [address] [place] [address] PCP - General PHYSICIAN MC KAY MACHINE OPERATOR 07/07/21 documented as of this encounter
--- OUTSIDE RECORDS SUMMARY | 2024-10-06 03:53 | XMS_ITS | Encounter Summary ---
Author Organization [facility] Address [address] [place] [address]. [place] [address] [place] [address] Care Team Providers Care Machine Specialist Name Role Phone Farheen Chan PA-C Primary Care Provider +1- [phone] Encounter Details Date Type Department Care Team (Latest Contact Info) Description 10/25/2021 Scan HEALTH INFO SRVCS Scanned, Documents Social [...] on filedocumented in this encounter Care Teams Machine Specialist Relationship Specialty Start Date End Date Farheen Chan PA-C [address] [place] [address] PCP - General PHYSICIAN WESTERN TACK ASSEMBLY LINE WORKER 07/07/21 documented as of this encounter
--- OUTSIDE RECORDS SUMMARY | 2024-10-06 03:53 | XMS_ITS | Encounter Summary ---
Author Organization [facility] Address [address] [place] [address]. [place] [address] [place] [address] Care Team Providers Care Chinchilla Farmer Name Role Phone Farhene Chan PA-C Primary Care Provider +1- [phone] Encounter Details Date Type Department Care Team (Latest Contact Info) Description 05/19/2005 Scan HEALTH INFO SRVCS Scanned, Documents Social [...] on filedocumented in this encounter Care Teams Chinchilla Farmer Relationship Specialty Start Date End Date Farheen Chan PA-C [address] [place] [address] PCP - General PHYSICIAN WELDER PRODUCTION LINE COMBINATION 07/07/21 documented as of this encounter
--- OUTSIDE RECORDS SUMMARY | 2024-10-06 03:53 | XMS_ITS | Encounter Summary ---
Author Organization [facility] Address [address] [place] [address]. [place] [address] [place] [address] Care Team Providers Care Sample Box Maker Name Role Phone Farheen Chan PA-C Primary Care Provider +1- [phone] Reason for Visit * Reason Onset Date Comments Concerns 12/21/2021 Medication 12/21/2021 Encounter Details Date Type Department Care Team (Late st Contact Info) Description 12/21/2021 Telephone [facility] - [place] [address] [place] [address] Farheen Chan PA-C [address] [place] [address] Concerns; Medication Social History Tobacco Use Types Packs/Day Years Used Date Smoking Tobacco: Never Assessed Comments Unknown Sex and Gender Information Value Date Recorded Sex Assigned at Not on file Legal Sex Female 7:38 PM CDT Gender Identity Not on file Sexual Orientation Not on file documented as of this encounter Progress Notes * Jesusita Kang MA - 12/22/2021 12:03 PM CDT Per patient she is on the Dulera daily, she made an apt to discuss asthma on 01/05/22 * Galina Bliss MA - 12/21/2021 4:21 PM CDT Left patient a message asking her to call back in regards to her medication and that she needs an apt * Farheen Chan PA-C - 12/21/2021 4:16 PM CDT Please call her to let her know that insurance will only fill 3 albuterol canisters a year. She needs to be on daily inhaler. Is she still on dulera? If she's not on daily inhaler she needs follow upto be put on daily inhaler. * Jesusita Kang MA - 12/21/2021 2:22 PM CDT I spoke with Veronica, this is Re: Albuterol Inhaler * Michelle Argueta - 12/21/2021 2:15 PM CDT Veronica called from [facility] called. She said that she was reviewing patient charts and noticed that Licha filled 10 canisters in 2020. She said that she may need to review her medication and possibly need to be put on something else. They will only fill up to 3 canisters a year now. Call back for Veronica [phone] Ex [id number] Veronica is faxing over information for the patient documented in this encounter Plan of Treatment Not on file documented as of this encounter Visit Diagnoses Not on filedocumented in this encounter Care Teams Sample Box Maker Relationship Specialty Start Date End Date Farheen Chan PA-C [address] [place] [address]. [place] [address] PCP - General PHYSICIAN AMPOULE FILLER AND SEALER 07/07/21 documented as of this encounter
--- OUTSIDE RECORDS SUMMARY | 2024-10-06 03:53 | XMS_ITS | Encounter Summary ---
Author Organization [facility] Address [address] [place] [address]. [place] [address] [place] [address] Care Team Providers Care Portable Power Tool Repairer Name Role Phone Farheen Chan PA-C Primary Care Provider +1- [phone] Encounter Details Date Type Department Care Team (Latest Contact Info) Description 11/16/2007 Scan HEALTH INFO SRVCS Scanned, Documents Social [...] on filedocumented in this encounter Care Teams Portable Power Tool Repairer Relationship Specialty Start Date End Date Farheen Chan PA-C [address] [place] [address] PCP - General PHYSICIAN STRAWHAT SIZER 07/07/21 documented as of this encounter
--- OUTSIDE RECORDS SUMMARY | 2024-10-06 03:53 | XMS_ITS | Encounter Summary ---
Author Organization [facility] Address [address] [place] [address]. [place] [address] [place] [address] Care Team Providers Care Machine Maintenance Name Role Phone Farheen Chan PA-C Primary Care Provider +1- [phone] Encounter Details Date Type Department Care Team (Latest Contact Info) Description 06/13/2015 Scan HEALTH INFO SRVCS Scanned, Documents Social [...] filedocumented in this encounter Care Teams Machine Maintenance Relationship Specialty Start Date End Date Farheen Chan PA-C [address] [place] [address] PCP - General PHYSICIAN PIPE SMOKING MACHINE OFFBEARER 07/07/21 documented as of this encounter
--- OUTSIDE RECORDS SUMMARY | 2024-10-06 03:53 | XMS_ITS | Encounter Summary ---
Author Organization [facility] Address [address] [place] [address]. [place] [address] [place] [address] Care Team Providers Care High School Music Teacher Name Role Phone Farheen Chan PA-C Primary Care Provider +1- [phone] Reason for Visit * Reason Comments Lab (SCAN) Encounter Details Date Type Department Care Team (Latest Contact Info) Description 11/07/2017 Scan MG HEALTH INFO SRVCS Scanned, Documents [...] Associated Diagnosis Comments OUTSIDE LAB (SCAN ORDER) 11/07/2017 documented in this encounter Results * OUTSIDE LAB (SCAN) (11/07/2017) 11/07/2017 Narrative 11/07/2017 Ordered by an unspecified provider. us Documents Scanned SCANNING Final Result documented in this encounter Visit Diagnoses Not on filedocumented in this encounter Care Teams High School Music Teacher Relationship Specialty Start Date End Date Farheen Chan PA-C [address] [place] [address]. [place] [address] PCP - General PHYSICIAN TRESTLE MAINTERNANCE LABORER 07/07/21 documented as of this encounter
--- OUTSIDE RECORDS SUMMARY | 2024-10-06 03:53 | XMS_ITS | Encounter Summary ---
Author Organization [facility] Address [address] [place] [address]. [place] [address] [place] [address] Care Team Providers Care Netting Weaver Name Role Phone Farheen Chan PA-C Primary Care Provider +1- [phone] Encounter Details Date Type Department Care Team (Latest Contact Info) Description 06/29/2020 Scan HEALTH INFO SRVCS Scanned, Documents Social [...] on filedocumented in this encounter Care Teams Netting Weaver Relationship Specialty Start Date End Date Farheen Chan PA-C [address] [place] [address] PCP - General PHYSICIAN BOILER TESTING TECHNICIAN 07/07/21 documented as of this encounter
--- OUTSIDE RECORDS SUMMARY | 2024-10-06 03:53 | XMS_ITS | Encounter Summary ---
Author Organization [facility] Address [address] [place] [address]. [place] [address] [place] [address] Care Team Providers Care Urgent Care Nurse Practitioner Name Role Phone Farheen Chan PA-C Primary Care Provider +1- [phone] Encounter Details Date Type Department Care Team (Latest Contact Info) Description 08/30/2010 Scan HEALTH INFO SRVCS Scanned, Documents Social [...] on filedocumented in this encounter Care Teams Urgent Care Nurse Practitioner Relationship Specialty Start Date End Date Farheen Chan PA-C [address] [place] [address] PCP - General PHYSICIAN SHOP GIRL 07/07/21 documented as of this encounter
--- OUTSIDE RECORDS SUMMARY | 2024-10-06 03:53 | XMS_ITS | Encounter Summary ---
Author Organization [facility] Address [address] [place] [address]. [place] [address] [place] [address] Care Team Providers Care Shutdown Coordinator Name Role Phone Reji Heller PA-C Primary Care Provider +1- [phone] Reason for Visit * Reason Onset Date Comments Medication Request 01/06/2022 Encounter Details Date Type Department Care Team (Late st Contact Info) Description 01/06/2022 Telephone [facility] Family Medicine - [place] [phone] Reji Heller PA-C [address] [place], [place] [id number] Medication Request Social History Tobacco Use Types [...] as of this encounter Progress Notes * Galina Bliss MA - 01/10/2022 5:03 PM CDT Left a detailed msg to patient informing her this was done * Reji Heller PA-C - 01/10/2022 4:56 PM CDT Please let her know that her nebulizer machine and solution was sent * Reji Heller PA-C - 01/10/2022 4:56 PM CDTAddended by: REJI HELLER on: 01/10/2022 04:56 PM Modules accepted: Orders * Ramonita Lobato MA - 01/06/2022 11:01 AM CDT Did you talk to patient regarding to home nebulizer during her office visit? * Michelle Argueta - 01/06/2022 10:41 AM CDT Call back [phone] Licha called and said that she has a follow up item. She confirmed that her insurance would cover a home nebulizer. She said that she can just write a prescription to the [facility] in [facility] and that her insurance would cover the machine. documented in this encounter Plan of Treatment Not on file documented as of this encounter Visit Diagnoses Diagnosis Mild persistent asthma without complication (HHS/HCC)- Primary Unspecified asthma documented in this encounter Care Teams Shutdown Coordinator Relationship Specialty Start Date End Date Reji Heller PA-C [address] [place] [id number] PCP - General PHYSICIAN SAMPLE COLLECTOR 07/07/21 documented as of this encounter
--- OUTSIDE RECORDS SUMMARY | 2024-10-06 03:53 | XMS_ITS | Encounter Summary ---
Author Organization [facility] Address [address] [place] [address]. [place] [address] [place] [address] Care Team Providers Care Process Improvement Manager Name Role Phone Farheen Chan PA-C Primary Care Provider +1- [phone] Encounter Details Date Type Department Care Team (Latest Contact Info) Description 01/02/2022 Travel Social History Tobacco Use Types Packs/Day [...] suspected to have Coronavirus/COVID-19? No / Unsure 01/02/2022 9:27 AM CDT documented as of this encounter Plan of Treatment Not on file documented as of this encounter Visit Diagnoses Not on filedocumented in this encounter Care Teams Process Improvement Manager Relationship Specialty Start Date End Date Farheen Chan PA-C [address] [place] [address] PCP - General PHYSICIAN ENGINEERING OFFICER 07/07/21 documented as of this encounter
--- OUTSIDE RECORDS SUMMARY | 2024-10-06 03:53 | XMS_ITS | Encounter Summary ---
Author Organization [facility] Address [address] [place] [address]. [place] [address] [place] [address] Care Team Providers Care Training Representative Name Role Phone Farheen Chan PA-C Primary Care Provider +1- [phone] Encounter Details Date Type Department Care Team (Latest Contact Info) Description 05/08/2008 Scan HEALTH INFO SRVCS Scanned, Documents Social [...] on filedocumented in this encounter Care Teams Training Representative Relationship Specialty Start Date End Date Farheen Chan PA-C [address] [place] [address] PCP - General PHYSICIAN OUTPATIENT DIETITIAN 07/07/21 documented as of this encounter
--- OUTSIDE RECORDS SUMMARY | 2024-10-06 03:53 | XMS_ITS | Encounter Summary ---
Author Organization [facility] Address [address] [place] [address]. [place] [address] [place] [address] Care Team Providers Care Senior Mobile Application Developer Name Role Phone Farheen Chan PA-C Primary Care Provider +1- [phone] Encounter Details Date Type Department Care Team (Latest Contact Info) Description 03/19/2009 Scan HEALTH INFO SRVCS Scanned, Documents Social [...] on filedocumented in this encounter Care Teams Senior Mobile Application Developer Relationship Specialty Start Date End Date Farheen Chan PA-C [address] [place] [address] PCP - General PHYSICIAN MACHINE LEATHER TRIMMER 07/07/21 documented as of this encounter
--- OUTSIDE RECORDS SUMMARY | 2024-10-06 03:53 | XMS_ITS | Encounter Summary ---
Author Organization [facility] Address [address] [place] [address]. [place] [address] [place] [address] Care Team Providers Care After School Program Coordinator Name Role Phone Farheen Chan PA-C Primary Care Provider +1- [phone] Encounter Details Date Type Department Care Team (Latest Contact Info) Description 05/03/2007 Scan HEALTH INFO SRVCS Scanned, Documents Social [...] on filedocumented in this encounter Care Teams After School Program Coordinator Relationship Specialty Start Date End Date Farheen Chan PA-C [address] [place] [address] PCP - General PHYSICIAN JACK WINDER 07/07/21 documented as of this encounter
--- OUTSIDE RECORDS SUMMARY | 2024-10-06 03:53 | XMS_ITS | Encounter Summary ---
Author Organization [facility] Address [address] [place] [address]. [place] [address] [place] [address] Care Team Providers Care Electric Motor Repairman Name Role Phone Farheen Chan PA-C Primary Care Provider +1- [phone] Encounter Details Date Type Department Care Team (Latest Contact Info) Description 11/15/2017 Scan HEALTH INFO SRVCS Scanned, Documents Social [...] on filedocumented in this encounter Care Teams Electric Motor Repairman Relationship Specialty Start Date End Date Farheen Chan PA-C [address] [place] [address] PCP - General PHYSICIAN VENETIAN BLIND CLEANER AND REPAIRER 07/07/21 documented as of this encounter
--- OUTSIDE RECORDS SUMMARY | 2024-10-06 03:53 | XMS_ITS | Encounter Summary ---
Author Organization [facility] Address [address] [place] [address]. [place] [address] [place] [address] Care Team Providers Care Veterans' Coordinator Name Role Phone Farheen Chan PA-C Primary Care Provider +1- [phone] Reason for Visit * Reason Comments MRI (SCAN) Encounter Details Date Type Department Care Team (Latest Contact Info) Description 04/30/2010 Scan [facility] HEALTH INFO SRVCS Scanned, Documents MRI (SCAN) Social History Tobacco Use Types Packs/Day [...] Procedure Name Priority Date/Time Associated Diagnosis Comments MRI GENERIC 04/30/2010 documented in this encounter Results * MRI GENERIC (04/30/2010) Anatomical Region Laterality Modality Other 04/30/2010 Narrative 04/30/2010 Ordered by an unspecified provider. us Documents Scanned SCANNING Final Result documented in this encounter Visit Diagnoses Not on filedocumented in this encounter Care Teams Veterans' Coordinator Relationship Specialty Start Date End Date Farheen Chan PA-C [address] [place] [address]. [place] [address] PCP - General PHYSICIAN DIRECTOR OF SEARCH ENGINE MARKETING 07/07/21 documented as of this encounter
--- OUTSIDE RECORDS SUMMARY | 2024-10-06 03:53 | XMS_ITS | Encounter Summary ---
Author Organization [facility] Address [address] [place] [address]. [place] [address] [place] [address] Care Team Providers Care Shear Scrapman Name Role Phone Farheen Chan PA-C Primary Care Provider +1- [phone] Reason for Visit * Reason Comments Lab (SCAN) Encounter Details Date Type Department Care Team (Latest Contact Info) Description 10/07/2015 Scan [facility] HEALTH INFO SRVCS Scanned, Documents [...] Associated Diagnosis Comments OUTSIDE LAB (SCAN ORDER) 10/07/2015 documented in this encounter Results * OUTSIDE LAB (SCAN) (10/07/2015) 10/07/2015 Narrative 10/07/2015 Ordered by an unspecified provider. us Documents Scanned SCANNING Final Result documented in this encounter Visit Diagnoses Not on filedocumented in this encounter Care Teams Shear Scrapman Relationship Specialty Start Date End Date Farheen Chan PA-C [address] [place] [address]. [place] [address] PCP - General PHYSICIAN CALIBRATION ENGINEER 07/07/21 documented as of this encounter
--- OUTSIDE RECORDS SUMMARY | 2024-10-06 03:53 | XMS_ITS | Encounter Summary ---
Author Organization [facility] Address [address] [place] [address]. [place] [address] [place] [address] Care Team Providers Care Assembler Finger Buffs Name Role Phone Farheen Chan PA-C Primary Care Provider +1- [phone] Reason for Visit * Reason Comments Lab (SCAN) Encounter Details Date Type Department Care Team (Latest Contact Info) Description 06/12/2015 Scan [facility] HEALTH INFO SRVCS Scanned, Documents [...] Associated Diagnosis Comments OUTSIDE LAB (SCAN ORDER) 06/12/2015 OUTSIDE LAB (SCAN ORDER) 06/12/2015 OUTSIDE LAB (SCAN ORDER) 06/12/2015 documented in this encounter Results * OUTSIDE LAB (SCAN) (06/12/2015) 06/12/2015 Narrative 06/12/2015 Ordered by an unspecified provider. us Documents Scanned SCANNING Final Result * OUTSIDE LAB (SCAN) (06/12/2015) 06/12/2015 Narrative 06/12/2015 Ordered by an unspecified provider. us Documents Scanned SCANNING Final Result * OUTSIDE LAB (SCAN) (06/12/2015) 06/12/2015 Narrative 06/12/2015 Ordered by an unspecified provider. us Documents Scanned SCANNING Final Result documented in this encounter Visit Diagnoses Not on filedocumented in this encounter Care Teams Assembler Finger Buffs Relationship Specialty Start Date End Date Farheen Chan PA-C [address] [place] [phone] PCP - General PHYSICIAN DOWELER 07/07/21 documented as of this encounter
--- OUTSIDE RECORDS SUMMARY | 2024-10-06 03:53 | XMS_ITS | Encounter Summary ---
Author Organization [facility] Address [address] [place] [address]. [place] [address] [place] [address] Care Team Providers Care Material Handling Warehouse Supervisor Name Role Phone Farheen Chan PA-C Primary Care Provider +1- [phone] Encounter Details Date Type Department Care Team (Latest Contact Info) Description 05/05/2006 Scan HEALTH INFO SRVCS Scanned, Documents Social [...] filedocumented in this encounter Care Teams Material Handling Warehouse Supervisor Relationship Specialty Start Date End Date Farheen Chan PA-C [address] [place] [address] PCP - General PHYSICIAN PUBLISHING SPECIALIST 07/07/21 documented as of this encounter
--- OUTSIDE RECORDS SUMMARY | 2024-10-06 03:53 | XMS_ITS | Encounter Summary ---
Author Organization [facility] Address [address] [place] [address]. [place] [address] [place] [address] Care Team Providers Care Licensed Insurance Agent Name Role Phone Farheen Chan PA-C Primary Care Provider +1- [phone] Encounter Details Date Type Department Care Team (Latest Contact Info) Description 01/05/2022 Travel Social History Tobacco Use Types Packs/Day [...] PM CDT documented as of this encounter Plan of Treatment Not on file documented as of this encounter Visit Diagnoses Not on filedocumented in this encounter Care Teams Licensed Insurance Agent Relationship Specialty Start Date End Date Farheen Chan PA-C [address] [place] [address] PCP - General PHYSICIAN CHANCERY CLERK 07/07/21 documented as of this encounter
--- OUTSIDE RECORDS SUMMARY | 2024-10-06 03:53 | XMS_ITS | Encounter Summary ---
Author Organization [facility] Address [address] [place] [address]. [place] [address] [place] [address] Care Team Providers Care Director Surgical Name Role Phone Farheen Chan PA-C Primary Care Provider +1- [phone] Encounter Details Date Type Department Care Team (Latest Contact Info) Description 10/18/2005 Scan HEALTH INFO SRVCS Scanned, Documents Social [...] on filedocumented in this encounter Care Teams Director Surgical Relationship Specialty Start Date End Date Farheen Chan PA-C [address] [address] PCP - General PHYSICIAN BOTANY TEACHER 07/07/21 documented as of this encounter
--- OUTSIDE RECORDS SUMMARY | 2024-10-06 03:56 | XMS_ITS | Encounter Summary ---
Author Organization [facility] Address [address] [place] [address] Care Team Providers Care Pipe Fitter Supervisor Maintenance Name Role Phone Zuleika Hanley NP Primary Care Provider [phone] Reason for Visit * Reason Comments Weight Management New patient for [facility] managment Encounter Details Date Type Department Care Team (Late st Contact Info) Description 06/11/2019 8:15 AM CDT Office Visit [facility] After Hours [facility] [address] [place] [address] Cosmo Stoll MD [address] [address] Abnormal weight gain (Primary Dx); Overweight (BMI 25.0-29.9); BMI 27.0-27.9,adult Social History Tobacco Use Types Packs/Day Years Used Date Smoking Tobacco: Former Alcohol Use Standard Drinks/Week Comments Yes 0 (1 standard drink = 0.6 oz pur e alcohol) rarely Comments Unknown Sex and Gender Information Value Date Recorded Sex Assigned at Not on file 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 Gender Identity Not on file Sexual Orientation Not on file documented as of this encounter Last Filed Vital Signs Vital Sign Reading Time Taken Comments Blood Pressure 118/80 06/11/2019 8:03 AM CDT Pulse 106 06/11/2019 8:03 AM CDT Temperature 37.2 ??C (99 ??F) 06/11/2019 8:03 AM CDT Respiratory Rate 16 06/11/2019 8:03 AM CDT Oxygen Saturation 99% 06/11/2019 8:03 AM CDT Inhaled Oxygen Concentration - - Weight 80.3 kg (177 lb) 06/11/2019 8:03 AM CDT Height 170.2 cm (5' 7 ) 06/11/2019 8:03 AM CDT Body Mass Index 27.72 06/11/2019 8:03 AM CDT documented in this encounter Ordered Prescriptions Prescription Sig Dispense Quantity Refills Last Filled Start Date End Date phentermine (ADIPEX-P) 37.5 mg tabletIndications: Weight Loss Management for Obese Patient (BMI >= 30) Take 1 tablet (37.5 mg total) by mouth daily before breakfast 30 tablet 2 06/11/2019 9 documented in this encounter Progress Notes * Cosmo Stoll MD - 06/11/2019 8:15 AM CDT Images from the original note were not included. Patient ID: Licha Verduzco is a 29 y.o. female. Chief Complaint. Chief Complaint Patient presents with ??? Weight Management New patient for weight managment HPI. Patient is a 29 y.o. female HPI Lifestyle Medicine For Weight Management: Previous Dietary Approaches: Previously been on medication about 1 year ago. Didn't loose much. MARI: no Mental Health: Stable Diabetes: No Previous History of Weight Loss Surgery: None First Visit Date: 06/11/19 First Visit Weight: 177lb. Dates: Weight (lb) Wt Readings from Last 3 Encounters: 06/11/19 80.3 kg (177 lb) 01/22/14 72.7 kg (160 lb 6.2 oz) 12/03/13 73 kg (161 lb) Total Weight Loss: First Visit Treatment: Medication: Phentermine Meal Replacement/Delivery: No Specific Diet: Not on any specific Diet Food Diary: No Activity: is walking and Daily Steps [place] about 5000 to [address] Past Medical History: Diagnosis Date ??? Personal history of other diseases of the respiratory system Personal history of asthma - (Added by MARGARITA Brar) Past Surgical History: Procedure Laterality Date ??? SECTION 2 No Known Allergies Social History Tobacco Use ??? Smoking status: Former Smoker Substance Use Topics ??? Alcohol use: Yes Comment: rarely Family History Problem Relation Age of Onset ??? Cancer Father Reported Family History Of Cancer - Father - liver and renal (Added by TW Conv) ??? COPD Mother Current Medications: Outpatient Encounter Medications as of 06/11/2019 Medication Sig Dispense Refill ??? phentermine (ADIPEX-P) 37.5 mg tablet Take 1 tablet (37.5 mg total) by mouth daily before breakfast 30 tablet 2 ??? PROAIR HFA 90 mcg/actuation inhaler No facility-administered encounter medications on file as of 06/11/2019. Review of Systems: Review of Systems Constitutional: Positive for activity change, appetite change, fatigue and unexpected weight change. Negative for chills, diaphoresis and fever. HENT: Negative for trouble swallowing and voice change. Eyes: Negative for photophobia and visual disturbance. Respiratory: Negative for apnea, chest tightness and shortness of breath. Cardiovascular: Negative for chest pain, palpitations and leg swelling. Gastrointestinal: Negative for blood in stool, constipation and nausea. Endocrine: Negative for cold intolerance, heat intolerance, polydipsia, polyphagia and polyuria. Musculoskeletal: Negative for arthralgias, back pain, gait problem, myalgias, neck pain and neck stiffness. Skin: Negative for rash. Allergic/Immunologic: Negative for food allergies. Neurological: Negative for dizziness, seizures, weakness, light-headedness and headaches. Hematological: Negative for adenopathy. Psychiatric/Behavioral: Negative for agitation, behavioral problems and suicidal ideas. The patientis not nervous/anxious and is not hyperactive. BP 118/80 (BP Location: Right arm, Patient Position: Sitting) Pulse 106 Temp 37.2 ??C (99 ??F) (Oral) Resp 16 Ht 170.2 cm (5' 7 ) Wt 80.3 kg (177 lb) SpO2 99% BMI 27.72 kg/m?? Physical Exam: Physical Exam Constitutional: He is oriented to person, place, and time. Vital signs are normal. He appears well-developed and well-nourished. HENT: Head: Normocephalic and atraumatic. Mouth/Throat: Oropharynx is clear and moist. Eyes: Pupils are equal, round, and reactive to light. Conjunctivae and EOM are normal. Neck: Normal range of motion. Neck supple. No thyromegaly present. Cardiovascular: Normal rate, regular rhythm, normal heart sounds and intact distal pulses. Pulmonary/Chest: Effort normal and breath sounds normal. Neurological: He is alert and oriented to person, place, and time. Psychiatric: He has a normal mood and affect. His behavior is normal. Judgment and thought content normal. Nursing note and vitals reviewed. Assessment & Plan: Diagnoses and all orders for this visit: Abnormal weight gain (Primary) Assessment & Plan: Discussed/Re-emphasized Diet (90%) + Physical Activity (10%) Plan: Discussed/Re-emphasized Vegetables/Fruits Nutritional Ranking Handout: Recommended >80% caloriesfrom Whole Food Plant Based Nutrition. Discussed/Re-emphasized Processed Food (Frozen, Canned, Fast, Refined...) vs. Whole Food/Organic/Non-GMO Discussed/Re-emphasized High Fiber Diet: How to increase fibers in diet Handout being provided. Discussed/Re-emphasized [place]/Phytochemicals Diet. Disucssed/Re-emphasized [place] Diet: Grocery List and Weekly Meal Plan provided. Discussed/Re-emphasized Low Carb Diet (<50g/day) with approximately Low Calories (<1200kcal/day): Grocery List, Daily Meal Plan and Healthy Alternative being provided. Discussed/Re-emphasized Non-weight bearing exercise to complete average 7500- 91660 steps per day: Swimming or Stationary Exercise Bike. Disccused/Re-emphasized MARI/CPAP/Sleep. Disccused/Re-emphasized Good Carb/Protein/Fat. Discussed/Re-emphasized Glycemic Index/Load to determine Good vs. Bad Carbs. Discussed/Re-emphasized Behaviroral Modification to reduce stress by Yoga and Mindfulness. Discussed/Re-emphasized Small (<250kcal) vs. Large Meals (<450kcal) Based on Calories, not volume: Approximately Small Meals x 3 + Large Meal x 1 (Preferably Lunch). Discussed/Re-emphasized Small Meal Intermittent Snacking (<250kcal): Nuts (Soaked in water overnight), Berries, Seeds, Dried/Fresh Fruits/Vegetables. Discussed/Re-emphasized Energy Options: Vitamin B12 Tablets (2 hours prior to Dinner), Caffeine Tablets (in AM or Lunch Time) or FDA Approved Weight Loss Prescription Medications. Discussed/Re-emphasized Weight loss Medications in detail including side effects: Phenteramine, Qsymia, Belviq, Contrave, Saxenda! Consider OTC Meal Replacement Plans or Home Delivery Meal Plans. Encourage Monthly office visits to ensure accountability and continuous positive weight outcomes. General Guidelines: 1. Restrict Caloric Intake: Instead of calculating total calories, you can eliminate one food item from daily intake at a time that would be worth of 100- 200 kcal. Minimize Processed carbohydrates (Potatoes, Pasta, Bread, rice and corn) and processed sugars (Sodas, Cookies, Donuts & Desserts). Small plates and bowels. Small meals (Under 250kcal) at a time! 2. Quality of Diet: Organic, Non-GMO, fresh, raw-food, whole-food & more fruits and vegetables.Look for lean protein (Soy, Lentils, beans, legumes and nuts). Avoid processed food (frozen, canned, fast-food). Shop food economically from multiple places. 3. Stress Reduction: Yoga, Mindfulness, Exercise, Volunteering, Spirituality! Mindfulness eating (Avoid multi-tasking while eating and Increase awareness of what food is doing to Body). 4. Quality Restful Sleep: Melatonin, Yoga-Nidra, Kiwi fruit. Avoid meals in last two hours of the day. Avoid Caffeine, alcohol, high sugar/desserts and tobacco with or after dinner. 5. Increase Exertion within Daily Activities: 7500-66953 Steps/day. Avoid Elevators, escalators at public places. Increase steps in parking lots!. Clinical Notes: I spent More than 45 minutes Face to Face with Patient during office visit. More than 50% duration was spent toward Detailed Counselling including various kinds of Dietory methods, activities, medications and potential weight loss surgical options. Detailed Handouts on each topics were also printed and hand-delivered to the patient. Orders: - phentermine (ADIPEX-P) 37.5 mg tablet; Take 1 tablet (37.5 mg total) by mouth daily before breakfast Overweight (BMI 25.0-29.9) - phentermine (ADIPEX-P) 37.5 mg tablet; Take 1 tablet (37.5 mg total) by mouth daily before breakfast BMI 27.0-27.9,adult - phentermine (ADIPEX-P) 37.5 mg tablet; Take 1 tablet (37.5 mg total) by mouth daily before breakfast Body mass index is 27.72 kg/m??. BMI Plan: Nutrition/Activities/Behavioral Counseling. Education Provided. Follow up 1-3 months. Cosmo Stoll MD documented in this encounter Miscellaneous Notes * Assessment & Plan Note - Cosmo Stoll MD - 06/11/2019 8:21 AM CDTAssociated Problem(s): Abnormal weight gain Discussed/Re-emphasized Diet (90%) + Physical Activity (10%) Plan: Discussed/Re-emphasized Vegetables/Fruits Nutritional Ranking Handout: Recommended >80% caloriesfrom Whole Food Plant Based Nutrition. Discussed/Re-emphasized Processed Food (Frozen, Canned, Fast, Refined...) vs. Whole Food/Organic/Non-GMO Discussed/Re-emphasized High Fiber Diet: How to increase fibers in diet Handout being provided. Discussed/Re-emphasized [place]/Phytochemicals Diet. Disucssed/Re-emphasized [place] Diet: Grocery List and Weekly Meal Plan provided. Discussed/Re-emphasized Low Carb Diet (<50g/day) with approximately Low Calories (<1200kcal/day): Grocery List, Daily Meal Plan and Healthy Alternative being provided. Discussed/Re-emphasized Non-weight bearing exercise to complete average 7500- 93681 steps per day: Swimming or Stationary Exercise Bike. Disccused/Re-emphasized MARI/CPAP/Sleep. Disccused/Re-emphasized Good Carb/Protein/Fat. Discussed/Re-emphasized Glycemic Index/Load to determine Good vs. Bad Carbs. Discussed/Re-emphasized Behaviroral Modification to reduce stress by Yoga and Mindfulness. Discussed/Re-emphasized Small (<250kcal) vs. Large Meals (<450kcal) Based on Calories, not volume: Approximately Small Meals x 3 + Large Meal x 1 (Preferably Lunch). Discussed/Re-emphasized Small Meal Intermittent Snacking (<250kcal): Nuts (Soaked in water overnight), Berries, Seeds, Dried/Fresh Fruits/Vegetables. Discussed/Re-emphasized Energy Options: Vitamin B12 Tablets (2 hours prior to Dinner), Caffeine Tablets (in AM or Lunch Time) or FDA Approved Weight Loss Prescription Medications. Discussed/Re-emphasized Weight loss Medications in detail including side effects: Phenteramine, Qsymia, Belviq, Contrave, Saxenda! Consider OTC Meal Replacement Plans or Home Delivery Meal Plans. Encourage Monthly office visits to ensure accountability and continuous positive weight outcomes. General Guidelines: 1. Restrict Caloric Intake: Instead of calculating total calories, you can eliminate one food item from daily intake at a time that would be worth of 100- 200 kcal. Minimize Processed carbohydrates (Potatoes, Pasta, Bread, rice and corn) and processed sugars (Sodas, Cookies, Donuts & Desserts). Small plates and bowels. Small meals (Under 250kcal) at a time! 2. Quality of Diet: Organic, Non-GMO, fresh, raw-food, whole-food & more fruits and vegetables.Look for lean protein (Soy, Lentils, beans, legumes and nuts). Avoid processed food (frozen, canned, fast-food). Shop food economically from multiple places. 3. Stress Reduction: Yoga, Mindfulness, Exercise, Volunteering, Spirituality! Mindfulness eating (Avoid multi-tasking while eating and Increase awareness of what food is doing to Body). 4. Quality Restful Sleep: Melatonin, Yoga-Nidra, Kiwi fruit. Avoid meals in last two hours of the day. Avoid Caffeine, alcohol, high sugar/desserts and tobacco with or after dinner. 5. Increase Exertion within Daily Activities: 7500-52002 Steps/day. Avoid Elevators, escalators at public places. Increase steps in parking lots!. Clinical Notes: I spent More than 45 minutes Face to Face with Patient during office visit. More than 50% duration was spent toward Detailed Counselling including various kinds of Dietory methods, activities, medications and potential weight loss surgical options. Detailed Handouts on each topics were also printed and hand-delivered to the patient. documented in this encounter Plan of Treatment Not on file documented as of this encounter Visit Diagnoses Diagnosis Abnormal weight gain- Primary Overweight (BMI 25.0-29.9) Overweight BMI 27.0-27.9,adult documented in this encounter Historical Medications * This list may reflect changes made after this encounter. Medication Sig Dispense Quantity Refills Last Filled Start D ate End Date PROAIR HFA 90 mcg/actuation inhaler 05/31/2019 added in this encounter Care Teams Pipe Fitter Supervisor Maintenance Relationship Specialty Start Date End Date Zuleika Hanley, RAMON PCP - General Family Practice 06/11/19 02/03/20 documented as of this encounter
--- OUTSIDE RECORDS SUMMARY | 2024-10-06 03:56 | XMS_ITS | Encounter Summary ---
Author Organization [facility] Address [address] [place] [address] Care Team Providers Care Account Leader Name Role Phone Unavailable Primary Care Provider Unavailabl e Encounter Details Date Type Department Care Team (Latest Contact Info) Description 02/14/2017 5:54 AM CDT - 02/16/2017 11:29 AM CDT Hospital Encounter [facility] Sanjeev So MD [address] [address] Encounter for maternal care for low transverse scar from previous delivery; 39 weeks gestation of ; Single live ; Other placental disorders, third trimester; Anemia of puerperium Social History Tobacco Use Types Packs/Day Years Used Date Smoking Tobacco: Former Comments Unknown Sex and Gender Information Value Date Recorded Sex Assigned at Not on file 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 Gender Identity Not on file Sexual Orientation Not on file documented as of this encounter Last Filed Vital Signs Vital Sign Reading Time Taken Comments Blood Pressure 115/59 02/14/2017 6:34 AM CDT Pulse 74 02/14/2017 6:34 AM CDT Temperature 36.9 ??C (98.4 ??F) 02/14/2017 6:34 AM CD T Respiratory Rate - - Oxygen Saturation 98% 02/14/2017 6:34 AM CDT Inhaled Oxygen Concentration - - Weight 90.7 kg (200 lb) 02/14/2017 6:34 AM CDT Height 170.2 cm (5' 7 ) 02/14/2017 6:34 AM CDT Body Mass Index 31.32 02/14/2017 6:34 AM CDT documented in this encounter Plan of Treatment Not on file documented as of this encounter Procedures Procedure Name Priority Date/Time Associated Diagnosis Comments HEMOGLOBIN AND HEMATOCRIT Routine 02/15/2017 6:00 AM CDT DRUGS OF ABUSE SCREEN, URINE WITHOUT CONFIRMATION Routine 02/14/2017 6:00 AM CDT documented in this encounter Results * (ABNORMAL) Hemoglobin and hematocrit (02/15/2017 6:00 AM CDT) Hemoglobin 8.9(L) 11.0 - 15.0 g/dl Hct 26.6(L) 33.0 - 43.0 % 02/15/2017 6:00 AM CDT 02/15/2017 6:08 AM CDT Sanjeev So MD LAB BLOOD ORDERABLES F inal Result [facility] HISTORICAL RESULTS * Drug Screen, Urine (02/14/2017 6:00 AM CDT) Ur Amphetamine Screen NEGATIVE NEGATIVE Comment: Cutoff Limit: ??1000 ng/mL ??Detects MDMA, MDA, d-Amphetamine, d-Methamphetamine, ?MBDB-HCl, MDEA and BDB-HCl Note: ??Positive results from this drug screen are unconfirmed. ??Unconfirmed screening results should not be used for non-medical purposes. Ur Barbiturates Screen NEGATIVE NEGATIVE Comment: Cutoff limit: ??200 ng/mL ??Detects Secobarbitol, Cyclopentobarbital, Aprobarbital, ?Butalbital, Allobarbital, Butabarbital, ?Pentobarbital, Amobarbital and Phenobarbital U Benzodiazepines Scrn NEGATIVE NEGATIVE 02/14/2017 6:[address] [facility] HISTORICAL RESULTS Comment:Cutoff limit: 300 ng /mL U Cannabinoids Screen NEGATIVE NEGATIVE 02/14/2017 6:[address] [facility] HISTORICAL RESULTS Comment:Cutoff Limit: 50 ng/ mL U Cocaine Metab Screen NEGATIVE NEGATIVE 02/14/2017 6:[address] [facility] HISTORICAL RESULTS Comment:Cutoff limit: 300 ng /mL Urine Opiates Screen NEGATIVE NEGATIVE 02/14/2017 6:[address] [facility] HISTORICAL RESULTS Comment: Cutoff Limit: ??300 ng/mL Detects Morphine, Codeine, Ethyl Morphine, ?Diacetylmorphine, 6-Acetylmorphine, Dihydrocodeine, ?[id number]-[id number] and Hydrocodone Ur Oxycodone Screen NEGATIVE NEGATIVE 02/14 6:[address] [facility] HISTORICAL RESULTS Comment:Cutoff Limit: 100 ng /mL Urine Creatinine/ANAID 157.5 mg/dL 02/14/2017 6:[address] [facility] HISTORICAL RESULTS Comment:If Creatinine is < 4 0 mg/dL, recollection is suggested. 02/14/2017 6:00 AM CDT 02/14/2017 6:16 AM CDT Sanjeev So MD LAB URINE ORDERABLES F inal Result [facility] HISTORICAL RESULTS documented in this encounter Visit Diagnoses Diagnosis Encounter for maternal care for low transverse scar from previous delivery 39 weeks gestation of Single live Other placental disorders, third trimester Anemia of puerperium documented in this encounter
--- OUTSIDE RECORDS SUMMARY | 2024-10-06 03:56 | XMS_ITS | Encounter Summary ---
Author Organization [facility] Healthcare Address [address] [place] [address] Care Team Providers Care Rail Walker Name Role Phone Farheen Chan Primary Care Provider [phone] Reason for Visit * Reason Comments Weight Management Encounter Details Date Type Department Care Team (Late st Contact Info) Description 03/04/2024 11:00 AM CDT Office Visit [facility] Family Medicine at [address] [place] [address] Cosmo Stoll MD [address] [place] [phone] Abnormal weight gain (Primary Dx); BMI 29.0-29.9,adult Social History Tobacco Use Types Packs/Day Years Used Date Smoking Tobacco: Former Cigarettes Q uit: 08/21/2020 Smokeless Tobacco: Never Alcohol Use Standard Drinks/Week Comments Yes 0 (1 standard drink = 0.6 oz pur e alcohol) rarely AUDIT-C Answer Date Recorded Q1: How often do you have a drink containing alc ohol? 2-4 times a month 03/04/2024 Q2: How many drinks containi ng alcohol do you have on a typical day when you are drinking? 1 or 2 03/04/2024 Q3: How often do you have si x or more drinks on one occasion? 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 Gender Identity Not on file Sexual Orientation Not on file documented as of this encounter Last Filed Vital Signs Vital Sign Reading Time Taken Comments Blood Pressure 116/80 03/04/2024 10:52 AM CDT Pulse 88 03/04/2024 10:52 AM CDT Temperature 36.2 ??C (97.2 ??F) 03/04/2024 10:52 AM C DT Respiratory Rate 18 03/04/2024 10:52 AM CDT Oxygen Saturation 98% 03/04/2024 10:52 AM CDT Inhaled Oxygen Concentration - - Weight 84 kg (185 lb 3.2 oz) 03/04/2024 10:52 AM CDT Height 167.6 cm (5' 6 ) 03/04/2024 10:52 AM CDT Body Mass Index 29.89 03/04/2024 10:52 AM CDT documented in this encounter Ordered Prescriptions Prescription Sig Dispense Quantity Refills Last Filled Start Date End Date topiramate (TOPAMAX) 50 mg tabletIndications: Abnormal weight gain,BMI 29.0-29.9,adult Take 1 tablet (50 mg total) by mouth 2 (two) times a day 180 tablet 03/04/2024 phentermine (ADIPEX-P) 37.5 mg tabletIndications: Weight Loss Management for Obese Patient (BMI >= 30) Take 1 tablet (37.5 mg total) by mouth daily before breakfast 90 tablet 03/04/2024 documented in this encounter Progress Notes * Cosmo Stoll MD - 03/04/2024 11:00 AM CDT Images from the original note were not included. Patient ID: Licha Verduzco is a 33 y.o. female. Chief Complaint. Chief Complaint Patient presents with Weight Management HPI. Patient is a 33 y.o. female HPI Lifestyle Medicine For Weight Management: Previous Dietary Approaches: Previously been on medication about 1 year ago. Didn't loose much. MARI: no Mental Health: Stable Diabetes: No Previous History of Weight Loss Surgery: None First Visit Date: 06/11/19 First Visit Weight: 177lb. 8/24/21: 172lb 09/20/21: 167lb 12/13/22: 174lb 03/04/24: 185lb Dates: Weight (lb) Wt Readings from Last 3 Encounters: 03/04/24 84 kg (185 lb 3.2 oz) 12/13/22 78.9 kg (174 lb) 09/21/21 75.8 kg (167 lb) Total Weight Loss: -8lb. Treatment: Medication: Phentermine Meal Replacement/Delivery: No Specific Diet: Not on any specific Diet Food Diary: No Activity: is walking and [place] 5000 [place] [id number] Past Medical History: Diagnosis Date Asthma Personal history of asthma - (Added by TW Conv) Past Surgical History: Procedure Laterality Date SECTION 2014, 2016 No Known Allergies Social History Tobacco Use Smoking status: Former Smoker Types: Cigarettes Quit date: 08/21/2020 Years since quittin.0 Smokeless tobacco: Never Used Substance Use Topics Alcohol use: Yes Comment: rarely Family History Problem Relation Age of Onset Cancer Father Reported Family History Of Cancer - Father - liver and renal (Added by MARGARITA Conv) COPD Mother Cancer Mother Current Medications: Outpatient Encounter Medications as of 03/04/2024 Medication Sig Dispense Refill albuterol 0.63 mg/3 mL nebulizer solution Take 3 mL (0.63 mg total) by nebulization every 6 (six) hours as needed for wheezing Pt is unsure of mg fluticasone propion-salmeteroL (ADVAIR DISKUS) 250-50 mcg/dose diskus inhaler Inhale 1 puff 2 (two)times a day PROAIR HFA 90 mcg/actuation inhaler Dulera 200-5 mcg/actuation inhaler (Patient not taking: Reported on 12/13/2022) phentermine (ADIPEX-P) 37.5 mg tablet Take 1 tablet (37.5 mg total) by mouth daily before [id number] tablet 0 topiramate (TOPAMAX) 25 mg tablet Take 1 tablet (25 mg total) by mouth 2 (two) times a day (Patientnot taking: Reported on 03/04/2024) 180 tablet 0 topiramate (TOPAMAX) 50 mg tablet Take 1 tablet (50 mg total) by mouth 2 (two) times a day (Patientnot taking: Reported on 03/04/2024) 180 tablet 1 topiramate (TOPAMAX) 50 mg tablet Take 1 tablet (50 mg total) by mouth 2 (two) times a day 180 tablet 0 No facility-administered encounter medications on file as of 03/04/2024. Review of Systems: Review of Systems Constitutional: [...] not nervous/anxious and is not hyperactive. BP 116/80 (BP Location: Right arm, Patient Position: Sitting) Pulse 88 Temp 36.2 ??C (97.2 ??F) Resp 18 Ht 167.6 cm (5' 6 ) Wt 84 kg (185 lb 3.2 oz) SpO2 98% BMI 29.89 kg/m?? Physical Exam: Physical Exam Vitals and nursing note reviewed. Constitutional: General: She is not in acute distress. Appearance: She is well-developed. She is not diaphoretic. HENT: Head: Normocephalic and atraumatic. Eyes: Pupils: Pupils are equal, round, and reactive to light. Cardiovascular: Rate and Rhythm: Normal rate and regular rhythm. Heart sounds: Normal heart sounds. Pulmonary: Effort: Pulmonary effort is normal. Breath sounds: Normal breath sounds. Musculoskeletal: Cervical back: Normal range of motion and neck supple. Neurological: Mental Status: She is alert and oriented to person, place, and time. Psychiatric: Behavior: Behavior normal. Thought Content: Thought content normal. Judgment: Judgment normal. Assessment & Plan: Diagnoses and all orders for this visit: Abnormal weight gain (Primary) Comments: chronic. Uncontrolled. Start Phentermine/Topiramate. Orders: - phentermine (ADIPEX-P) 37.5 mg tablet; Take 1 tablet (37.5 mg total) by mouth daily before breakfast - topiramate (TOPAMAX) 50 mg tablet; Take 1 tablet (50 mg total) by mouth 2 (two) times a day BMI 29.0-29.9,adult - phentermine (ADIPEX-P) 37.5 mg tablet; Take 1 tablet (37.5 mg total) by mouth daily before breakfast - topiramate (TOPAMAX) 50 mg tablet; Take 1 tablet (50 mg total) by mouth 2 (two) times a day Body mass index is 29.89 kg/m??. BMI Plan: Nutrition/Activities/Behavioral Counseling. Education Provided. Follow up 1-3 months. Cosmo Stoll MD documented in this encounter Plan of Treatment Not on file documented as of this encounter Visit Diagnoses Diagnosis Abnormal weight gain- Primary BMI 29.0-29.9,adult documented in this encounter Care Teams Rail Walker Relationship Specialty Start Date End Date Farheen Chan PA [address] [place] [id number] PCP - General Physician Traffic Routing Engineer 08/17/20 documented as of this encounter
--- OUTSIDE RECORDS SUMMARY | 2024-10-06 03:56 | XMS_ITS | Clinical Summary ---
Author Organization [facility] Address [address] [place] [address] Care Team Providers Care Hvac R Tech Name Role Phone Farheen Chan Primary Care Provider [phone] Allergies No known active allergies Medications PROAIR HFA 90 mcg/actuation inhaler 9 Active Dulera 200-5 mcg/actuation inhaler 0 Active topiramate (TOPAMAX) 50 mg tabletIndicatio ns:Abnormal weight gain,Overweight (BMI 25.0-29.9) Take 1 tablet (50 mg total) by mouth 2 (two) times a day 180 tablet 1 1 Active Additional Information Patient not taking.Reported on 03/04/2024 fluticasone propion-salmete roL (ADVAIR DISKUS) 250-50 mcg/dose diskus inhaler Inhale 1 puff 2 (two) times a day 2 Active albuterol 0.63 mg/3 mL nebulizer solution Take 3 mL (0.63 mg total) by nebulization every 6 (six) hours as needed for wheezing Pt is unsure of mg Active topiramate (TOPAMAX) 25 mg tabletIndicatio ns:Abnormal weight gain,Overweight with body mass index (BMI) of 28 to 28.9 in adult Take 1 tablet (25 mg total) by mouth 2 (two) times a day 180 tablet 3 Active Additional Information Patient not taking.Reported on 03/04/2024 topiramate (TOPAMAX) 50 mg tabletIndicatio ns:Abnormal weight gain,BMI 29.0-29.9,adult Take 1 tablet (50 mg total) by mouth 2 (two) times a day 180 tablet 4 Active Active Problems Problem Noted Date Diagnosed Date Snoring 04/26/2023 Mild persistent asthma without complication 03/2022 Overweight (BMI 25.0-29.9) 08/14/2019 Abnormal weight gain 06/11/2019 Assessment & Plan (08/14/2019 8:33 AM INTERMEDIATE DESIGNER): Overall Condition Chronic Condition: Uncontrolled. Treatment: New [...] also printed and hand-delivered to the patient. Assessment & Plan (06/11/2019 8:21 AM CDT): Discussed/Re-emphasized Diet (90%) + Physical Activity (10%) Plan: Discussed/Re-emphasized Vegetables/Fruits Nutritional Ranking Handout: Recommended >80% calories from Whole Food Plant Based Nutrition. Discussed/Re-emphasized Processed Food (Frozen, Canned, Fast, Refined...) vs. Whole Food/Organic/Non-GMO Discussed/Re-emphasized High Fiber Diet: How to increase fibers in diet Handout being provided. Discussed/Re-emphasized [place]/Phytochemicals Diet. Disucssed/Re-emphasized [place] Diet: Grocery List and Weekly Meal Plan provided. Discussed/Re-emphasized Low Carb Diet (<50g/day) with approximately Low Calories (<1200kcal/day): Grocery List, Daily Meal Plan and Healthy Alternative being provided. Discussed/Re-emphasized Non-weight bearing exercise to complete average 7500- 90872 steps per day: Swimming or Stationary Exercise [...] a time that would be worth of 100-200 kcal. Minimize Processed carbohydrates (Potatoes, Pasta, Bread, rice and corn) and processed sugars (Sodas, Cookies, Donuts & Desserts). Small plates and bowels. Small meals (Under 250kcal) at a time! 2. Quality of Diet: Organic, Non-GMO, fresh, raw-food, whole-food & more fruits and vegetables. Look for lean protein (Soy, Lentils, beans, legumes [...] dinner. 5. Increase Exertion within Daily Activities: 7500-76167 Steps/day. Avoid Elevators, escalators at public places. [...] Female infertility 01/22/2014 Irregular menstrual cycle 12/03/2013 Resolved Problems Problem Noted Date Diagnosed Date Resolved Date BMI 27.0-27.9,adult 06/11/2019 08/14/20 Surgical History Surgery Date Site/Laterality Comments SECTION 2014, 2016 Medical History Medical History Date Comments Asthma Personal history of asthma - (Added by TW Conv) Family History Medical History Relation Name Comments Cancer Father Reported Family History Of Cancer - Father - liver and renal (Added by TW Conv) COPD Mother Cancer Mother Relation Name Status Comments Father Mother Social History Tobacco [...] on file Legal Sex 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 Gender Identity Not on file Sexual Orientation Not on file Obstetrics History Last Filed Vital Signs Vital Sign Reading [...] Mass Index 29.89 03/04/2024 10:52 AM CDT Plan of Treatment Health Maintenance Due Date Last Done Comments Cervical Cancer Screening 1988 Hepatitis C Screening 1988 Pneumococcal vaccine <65 (1 of 2 - PCV) 1994 Hepatitis B Screening 2006 Regular Well Visit/Exam 18-64 2006 Depression Screening 12/14/2023 12/13/2022, 05/25/20 21 Covid-19 Vaccine ( season) 2024 07/06/2021, 06/15/2021 Influenza Vaccine (#1) 2024 DTaP/Tdap/Td Vaccine (7 - Td or Tdap) 04/26/2033 04/26/2023, 05/08/2008, 03/15/1998, Additional history exists HPV Vaccines Aged Out No longer eligi ble based on patient's age to complete this topic Varicella Vaccines Discontinued Insurance Viraloid CHOICE [employer] ACCESS CHOICE [facility] ACCESS CHOICE Care Teams Hvac R Tech Relationship Specialty Start Date End Date Farheen Chan PA [address] [place] [address] [place] [address] PCP - General Physician Sharepoint Engineer 08/17/20
--- OUTSIDE RECORDS SUMMARY | 2024-10-06 03:56 | XMS_ITS | Encounter Summary ---
Author Organization [facility] Healthcare Address [address] [place] [address] Care Team Providers Care Grades 7 8 Tutor Name Role Phone Farheen Chan Primary Care Provider [phone] Reason for Visit * Reason Onset Date Comments Prior Auth 03/04/2024 PA on Phentermin e Encounter Details Date Type Department Care Team (Late st Contact Info) Description 03/04/2024 Telephone [facility] Family Medicine at [address] [place] [address] Farheen Chan PA [address] [place] [phone] Prior Auth (AMANDA on Phentermine) Social History Tobacco Use Types Packs/Day Years [...] on file 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 * Telephone Encounter - Krissy Forman MA - 03/04/2024 3:14 PM CDT PA on Phentermine for covermymeds [id number] documented in this encounter Plan of Treatment Not on file documented as of this encounter Visit Diagnoses Not on filedocumented in this encounter Care Teams Grades 7 8 Tutor Relationship Specialty Start Date End Date Farheen Chan PA [address] [place] [id number] PCP - General Physician Battery Container Inspector 08/17/20 documented as of this encounter
--- OUTSIDE RECORDS SUMMARY | 2024-10-06 03:56 | XMS_ITS | Encounter Summary ---
Author Organization [facility] Address [address] [facility] [address] [place] [address] Care Team Providers Care Provider Contracting Consultant Name Role Phone Farheen Chan Primary Care Provider [phone] Reason for Visit * Reason Comments Weight Management televisit for weight management Encounter Details Date Type Department Care Team (Late st Contact Info) Description 09/21/2021 7:45 AM ENVIRONMENT FRIENDLY LANDSCAPE DESIGNER Telemedicine [facility] After Hours [facility] [address] [facility] [address] [place] [address] Cosmo Stoll MD [address] [facility] [address] [place] [address] Abnormal weight gain; Overweight (BMI 25.0-29.9) Social History Tobacco Use Types Packs/Day Years Used Date Smoking Tobacco: Former Cigarettes Q uit: 08/21/2020 Smokeless Tobacco: Never Alcohol Use Standard Drinks/Week Comments Yes 0 (1 standard drink = 0.6 oz pur e alcohol) rarely PHQ-2 Answer Date Recorded PHQ-2 Total Score (If total score is 3 or more points, staff should administer the PHQ-9) 0 05/25/2021 Comments Unknown Sex and Gender Information Value Date Recorded Sex Assigned at Not on file Legal Sex Female 7:03 PM ENVIRONMENT FRIENDLY LANDSCAPE DESIGNER Gender Identity Not on file Sexual Orientation Not on file documented as of this encounter Last Filed Vital Signs Vital Sign Reading Time Taken Comments Blood Pressure - - Pulse - - Temperature - - Respiratory Rate - - Oxygen Saturation - - Inhaled Oxygen Concentration - - Weight 75.8 kg (167 lb) 09/21/2021 8:09 AM ENVIRONMENT FRIENDLY LANDSCAPE DESIGNER Height 167.6 cm (5' 5.98 ) 09/21/2021 8:09 AM CS T Body Mass Index 26.97 09/21/2021 8:09 AM ENVIRONMENT FRIENDLY LANDSCAPE DESIGNER documented in this encounter Ordered Prescriptions Prescription Sig Dispense Quantity Refills Last Filled Start Date End Date topiramate (TOPAMAX) 50 mg tabletIndications: Abnormal weight gain,Overweight (BMI 25.0-29.9) Take 1 tablet (50 mg total) by mouth 2 (two) times a day 180 tablet 1 09/21/2021 phentermine (ADIPEX-P) 37.5 mg tabletIndications: Abnormal weight gain,Overweight (BMI 25.0-29.9) Take 1 tablet (37.5 mg total) by mouth daily before lunch 90 tablet 09/21/2021 12/20/2021 documented in this encounter Progress Notes * Cosmo Stoll MD - 09/21/2021 7:45 AM CST Images from the original note were not included. Patient ID: Licha Verduzco is a 31 y.o. female. Chief Complaint. Chief Complaint Patient presents with ??? Weight Management televisit for weight management HPI. Patient is a 31 y.o. female HPI Lifestyle Medicine For Weight Management: Previous Dietary Approaches: Previously been on medication about 1 year ago. Didn't loose much. MARI: no Mental Health: Stable Diabetes: No Previous History of Weight Loss Surgery: None First Visit Date: 06/11/19 First Visit Weight: 177lb. 05/25/21: 172lb 09/20/21: 167lb Dates: Weight (lb) Wt Readings from Last 3 Encounters: 09/21/21 75.8 kg (167 lb) 05/25/21 78 kg (172 lb) 10/14/20 84.3 kg (185 lb 12.8 oz) Total Weight Loss: 10lb. Treatment: Medication: Phentermine Meal Replacement/Delivery: No Specific Diet: Not on any specific Diet Food Diary: No Activity: is walking and [place] 5000 to [address] Past Medical History: Diagnosis Date ??? Asthma Personal history of asthma - (Added by TW Conv) Past Surgical History: Procedure Laterality Date ??? SECTION 2014, 2016 No Known Allergies Social History Tobacco Use ??? Smoking status: Former Smoker Types: Cigarettes Quit date: 08/21/2020 Years since quittin.0 ??? Smokeless tobacco: Never Used Substance Use Topics ??? Alcohol use: Yes Comment: rarely Family History Problem Relation Age of Onset ??? Cancer Father Reported Family History Of Cancer - Father - liver and renal (Added by TW Conv) ??? COPD Mother ??? Cancer Mother Current Medications: Outpatient Encounter Medications as of 09/21/2021 Medication Sig Dispense Refill ??? Dulera 200-5 mcg/actuation inhaler ??? phentermine (ADIPEX-P) 37.5 mg tablet Take 1 tablet (37.5 mg total) by mouth daily before lunch90 tablet 0 ??? PROAIR HFA 90 mcg/actuation inhaler ??? topiramate (TOPAMAX) 50 mg tablet Take 1 tablet (50 mg total) by mouth 2 (two) times a day 180 tablet 1 ??? [DISCONTINUED] phentermine (ADIPEX-P) 37.5 mg tablet TAKE 1/2 TABLET BY MOUTH TWO TIMES A DAY. APPT REQUIRED FOR FUTURE REFILLS. 30 tablet 0 ??? [DISCONTINUED] topiramate (TOPAMAX) 50 mg tablet Take 1 tablet (50 mg total) by mouth 2 (two) times a day 180 tablet 1 No facility-administered encounter medications on file as of 09/21/2021. Review of Systems: Review of Systems Constitutional: [...] patientis not nervous/anxious and is not hyperactive. Ht 167.6 cm (5' 5.98 ) Wt 75.8 kg (167 lb) BMI 26.97 kg/m?? Physical Exam: Physical Exam This was a telemedicine visit with Licha nicole which took place via real-time video connection with [employer]. During the visit, I was located at the [facility] [address] and patient was located at home in the state [facility]. The video session started at 8 :00am and ended at 8:30am . The patient has been informed that the visit may not be secure and acknowledged the information. I have explained the option of participating in a telephone or video visit during the COVID-19 public health emergency to the patient. After being given an opportunity to ask questions about and discuss this type of visit, the patient verbally consented to proceeding with the telephone/video visit.The patient understands that this service replaces an office visit and they may be billed and/or responsible for any applicable copayments. Assessment & Plan: Diagnoses and all orders for this visit: Abnormal weight gain - phentermine (ADIPEX-P) 37.5 mg tablet; Take 1 tablet (37.5 mg total) by mouth daily before lunch - topiramate (TOPAMAX) 50 mg tablet; Take 1 tablet (50 mg total) by mouth 2 (two) times a day Overweight (BMI 25.0-29.9) - phentermine (ADIPEX-P) 37.5 mg tablet; Take 1 tablet (37.5 mg total) by mouth daily before lunch - topiramate (TOPAMAX) 50 mg tablet; Take 1 tablet (50 mg total) by mouth 2 (two) times a day Office Visit based on Time: I have spent more than 30 minutes Face to Face and xev-gpjt-uq-face activities with Patient during office visit and on the date of service. Nra-vbzb-ss-face activities included Preparing to see the patient (including review of tests), Obtaining and reviewing separately obtained History and Medical records, Ordering medications, tests, procedures and Documenting clinical information in the electronic and other health record I had spent total time toward Detailed Counselling including various kinds of Dietory methods, activities, medications and potential weight loss surgical options. Detailed Handouts on each topics were also printed and hand-delivered to the patient. Body mass index is 26.97 kg/m??. BMI Plan: Nutrition/Activities/Behavioral Counseling. Education Provided. Follow up 1-3 months. Cosmo Stoll MD RONMENT FRIENDLY LANDSCAPE DESIGNER documented in this encounter Plan of Treatment Not on file documented as of this encounter Visit Diagnoses Diagnosis Abnormal weight gain Overweight (BMI 25.0-29.9) Overweight documented in this encounter Discontinued Medications Medication Sig Discontinue Reason Start Date End Da te topiramate (TOPAMAX) 50 mg tabletIndications:Abnor mal weight gain,Overweight (BMI 25.0-29.9) Take 1 tablet (50 mg total) by mouth 2 (two) times a day Reorder 06/08/2021 09/21/2021 phentermine (ADIPEX-P) 37.5 mg tabletIndications:Abnor mal weight gain,Overweight (BMI 25.0-29.9) TAKE 1/2 TABLET BY MOUTH TWO TIMES A DAY. APPT REQUIRED FOR FUTURE REFILLS. Reorder 09/04/2021 09/21/2021 documented as of this encounter Care Teams Provider Contracting Consultant Relationship Specialty Start Date End Date Farheen Chan PA [address] [place] [id number] PCP - General Physician Document Control Clerk 08/17/20 documented as of this encounter
--- OUTSIDE RECORDS SUMMARY | 2024-10-06 03:56 | XMS_ITS | Encounter Summary ---
Author Organization [facility] Address [address] [place] [address] Care Team Providers Care Eyeglass Inspector Name Role Phone Farheen Chan Primary Care Provider [phone] Reason for Visit * Reason Comments Weight Gain Encounter Details Date Type Department Care Team (Late st Contact Info) Description 12/13/2022 11:30 AM CDT Office Visit [facility] Family Medicine at [address] [place] [id number] Cosmo Stoll MD [address] [place] [address] [address] [place] [address] Abnormal weight gain (Primary Dx); Overweight with body mass index (BMI) of 28 to 28.9 in adult Social History Tobacco Use Types Packs/Day Years Used Date Smoking Tobacco: Former Cigarettes Q uit: 08/21/2020 Smokeless Tobacco: Never Alcohol Use Standard Drinks/Week Comments Yes 0 (1 standard drink = 0.6 oz pur e alcohol) rarely AUDIT-C Answer Date Recorded Q1: How often do you have a drink containing alc ohol? 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 Gender Identity Not on file Sexual Orientation Not on file documented as of this encounter Last Filed Vital Signs Vital Sign Reading Time Taken Comments Blood Pressure 104/60 12/13/2022 11:57 AM CDT Pulse 110 12/13/2022 11:57 AM CDT Temperature 37.1 ??C (98.7 ??F) 12/13/2022 11:57 AM C DT Respiratory Rate 12 12/13/2022 11:57 AM CDT Oxygen Saturation 97% 12/13/2022 11:57 AM CDT Inhaled Oxygen Concentration - - Weight 78.9 kg (174 lb) 12/13/2022 11:57 AM CDT Height 167.6 cm (5' 6 ) 12/13/2022 11:57 AM CDT Body Mass Index 28.08 12/13/2022 11:57 AM CDT documented in this encounter Ordered Prescriptions Prescription Sig Dispense Quantity Refills Last Filled Start Date End Date topiramate (TOPAMAX) 25 mg tabletIndications: Abnormal weight gain,Overweight with body mass index (BMI) of 28 to 28.9 in adult Take 1 tablet (25 mg total) by mouth 2 (two) times a day 180 tablet 12/13/2022 phentermine (ADIPEX-P) 37.5 mg tabletIndications: Weight Loss Management for Obese Patient (BMI >= 30) Take 1 tablet (37.5 mg total) by mouth daily before breakfast 90 tablet 12/13/2022 3 documented in this encounter Progress Notes * Cosmo Stoll MD - 12/13/2022 11:30 AM CDT Images from the original note were not included. Patient ID: Licha Verduzco is a 32 y.o. female. Chief Complaint. Chief Complaint Patient presents with Weight Gain HPI. Patient is a 32 y.o. female HPI Lifestyle Medicine For Weight Management: Previous Dietary Approaches: Previously been on medication about 1 year ago. Didn't loose much. MARI: no Mental Health: Stable Diabetes: No Previous History of Weight Loss Surgery: None First Visit Date: 06/11/19 First Visit Weight: 177lb. 05/25/21: 172lb 09/20/21: 167lb 12/13/22: 174lb Dates: Weight (lb) Wt Readings from Last 3 Encounters: 12/13/22 78.9 kg (174 lb) 09/21/21 75.8 kg (167 lb) 05/25/21 78 kg (172 lb) Total Weight Loss: 3lb. Treatment: Medication: Phentermine Meal Replacement/Delivery: No Specific Diet: Not on any specific Diet Food Diary: No Activity: is walking and Daily Steps [place] 5000 to [id number] Past Medical History: Diagnosis Date Asthma Personal [...] by TW Conv) COPD Mother Cancer Mother Current Medications: Outpatient Encounter Medications as of 12/13/2022 Medication Sig Dispense Refill albuterol 0.63 mg/3 mL nebulizer solution Take 0.63 mg by nebulization every 6 (six) hours as needed for wheezing Pt is unsure of mg fluticasone propion-salmeteroL (ADVAIR DISKUS) 250-50 mcg/dose diskus inhaler Inhale 1 puff 2 (two)times a day PROAIR HFA 90 mcg/actuation inhaler topiramate (TOPAMAX) 50 mg tablet Take 1 tablet (50 mg total) by mouth 2 (two) times a day 180 tablet 1 Dulera 200-5 mcg/actuation inhaler (Patient not taking: Reported on 12/13/2022) phentermine (ADIPEX-P) 37.5 mg tablet Take 1 tablet (37.5 mg total) by mouth daily before [id number] tablet 0 topiramate (TOPAMAX) 25 mg tablet Take 1 tablet (25 mg total) by mouth 2 (two) times a day 180 tablet 0 No facility-administered encounter medications on file as of 12/13/2022. Review of Systems: Review of Systems Constitutional: [...] not nervous/anxious and is not hyperactive. BP 104/60 Pulse 110 Temp 37.1 ??C (98.7 ??F) (Oral) Resp 12 Ht 167.6 cm (5' 6 ) Wt 78.9 kg (174 lb) SpO2 97% BMI 28.08 kg/m?? Physical Exam: Physical Exam Vitals and [...] this visit: Abnormal weight gain (Primary) Comments: Chronic. Uncontrolled. Restart Phentemrine/Topirmate. Orders: - phentermine (ADIPEX-P) 37.5 mg tablet; Take 1 tablet (37.5 mg total) by mouth daily before breakfast - topiramate (TOPAMAX) 25 mg tablet; Take 1 tablet (25 mg total) by mouth 2 (two) times a day Overweight with body mass index (BMI) of 28 to 28.9 in adult - phentermine (ADIPEX-P) 37.5 mg tablet; Take 1 tablet (37.5 mg total) by mouth daily before breakfast - topiramate (TOPAMAX) 25 mg tablet; Take 1 tablet (25 mg total) by mouth 2 (two) times a day Body mass index is 28.08 kg/m??. BMI Plan: Nutrition/Activities/Behavioral Counseling. Education Provided. Follow up 1-3 months. Cosmo Stoll MD documented in this encounter Plan of Treatment Not on file documented as of this encounter Visit Diagnoses Diagnosis Abnormal weight gain- Primary Overweight with body mass index (BMI) of 28 to 28.9 in adult documented in this encounter Historical Medications * This list may reflect changes made after this encounter. albuterol 0.63 mg/3 mL nebulizer solution Take 3 mL (0.63 mg total) by nebulization every 6 (six) hours as needed for wheezing Pt is unsure of mg fluticasone propion-salmeter oL (ADVAIR DISKUS) 250-50 mcg/dose diskus inhaler Inhale 1 puff 2 (two) times a day 01/05/2022 added in this encounter Care Teams Eyeglass Inspector Relationship Specialty Start Date End Date Farheen Chan PA [address] [place] [id number] PCP - General Physician Software Tools Developer 08/17/20 documented as of this encounter
--- OUTSIDE RECORDS SUMMARY | 2024-10-06 03:56 | XMS_ITS | Encounter Summary ---
Author Organization [facility] Address [address] [facility] [address] [place] [address] Phone Care Team Providers Care Automotive Engineering Technician Name Role Phone Farheen Chan Primary Care Provider [phone] Reason for Visit * Consultation (Routine) - Closed Specialty Diagnoses / Procedures Referred By Ruchi padilla Referred To Contact General Surgery Diagnoses Encounter for consultation Juliana Cantu MD [address] [facility] [address] [place] [address] Phone: tel: fax: Denice Shea MD [address] [facility] [address] [place] [address] Phone: tel: Referral ID Status Reason Start Date Expiration Date V isits Requested Visits Authorized [id number] Closed Specialty Services Required 10/12/2020 11/11/2021 99 99 Encounter Details Date Type Department Care Team (Late st Contact Info) Description 10/14/2020 1:30 PM EXPLOSION WELDER Office Visit [facility] Surgery [address] [facility] [address] [place] [phone] Frantz Colvin MD [address] [facility] [id number] [place] [address] Umbilical hernia without obstruction or gangrene Social History Tobacco Use Types Packs/Day Years Used Date Smoking Tobacco: Former Cigarettes Q uit: 08/21/2020 Smokeless Tobacco: Never Alcohol Use Standard Drinks/Week Comments Yes 0 (1 standard drink = 0.6 oz pur e alcohol) rarely Comments Unknown Sex and Gender Information Value Date Recorded Sex Assigned at Not on file 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 Gender Identity Not on file Sexual Orientation Not on file documented as of this encounter Last Filed Vital Signs Vital Sign Reading Time Taken Comments Blood Pressure 128/85 10/14/2020 1:16 PM EXPLOSION WELDER Pulse 114 10/14/2020 1:16 PM EXPLOSION WELDER Temperature 36.8 ??C (98.2 ??F) 10/14/2020 1:16 PM CS T Respiratory Rate - - Oxygen Saturation - - Inhaled Oxygen Concentration - - Weight 84.3 kg (185 lb 12.8 oz) 10/14/2020 1:16 PM EXPLOSION WELDER Height 167.6 cm (5' 6 ) 10/14/2020 1:16 PM EXPLOSION WELDER Body Mass Index 29.99 10/14/2020 1:16 PM EXPLOSION WELDER documented in this encounter Patient Instructions * Patient Instructions* Frantz Colvin MD - 10/14/2020 1:30 PM EXPLOSION WELDER Scheduling surgery: You should expect a call from our office in the next 3-5 business days to schedule your operation. If you do not hear from us in that time please call us at [phone]. If your case is to be performed in combination with another surgeon this may take some increased time to coordinate. Anesthesia Evaluation (CPAP): You will receive information on your pre-admission anesthesia visit when we schedule your surgery. This will ideally occur 3-4 weeks before your surgery date. This will help ensure everything is in order prior to your surgery. You may require additional testing prior to surgery to ensure your safety. Due to the ongoing pandemic will likely be screened for COVID-19 prior to your surgery. This ideally will occur 48 hours before your surgery. We understand for some patients this can be difficult, but we want to ensure the safest care for all our patients. New / Worsening symptoms: If you have any acute problems between now and your surgery date such as worsening pain, vomiting or other concerns do not hesitate to contact our office. If it is an emergency, please call 911, or proceed to your nearest emergency room. OSION WELDER documented in this encounter Progress Notes * Frantz Colvin MD - 10/14/2020 1:30 PM CST [facility] Minimally Invasive Surgery New Ventral/Incisional Hernia Patient Evaluation Licha Verduzco [id number] 1990 Referring Physician: Juliana Cantu MD PCP: Farheen Chan PA Reason for Visit: Consult requested by Juliana Cantu MD for evaluation of a umbilical hernia. Chief Complaint: Umbilical bulge HPI: Licha Verduzco is a 30 y.o. female with no significant PMH aside from two prior C-sectionswho presents with a bulge at at her umbilicus. She noted a small bulge at her umbilicus following her first in 2014. This became more prominent following her second in 2016. It has not changed significantly. Patient reports having occasional discomfort, but no curtis pain that only really associated when there is pressure applied to her umbilicus. He has no pain or discomfort at rest. Patient denies obstructive symptoms, noN/V, no issues with obstructions requiring ED visit or admission. She has not had this repaired in the past. Patient Factors: Smoking: Prior smoker, quit in 2019. BMI: Body mass index is 29.99 kg/m??. Previous Abdominal Surgeries: x2 (2014, 2016) Previous Transplant: No Previous Cancer: No Previous VTE: No Obstructions: No Previous SSI: No Diabetes: No; No recent HbA1c found History of MRSA: No Hernia Factors: Recurrent hernia: No Number of previous repairs: None Previous mesh: No Previous mesh removed: Not Applicable Past Medical History: She has a past medical history of Asthma. Past Surgical History: She has a past surgical history that includes section. Family History: family history includes COPD in her mother; Cancer in her father and mother. Social History: Tobacco - former smoker, quit in August 2020 EtOH - weekly Illicit - denies Works as an engineering and scientific programmer Lives in [place], [place] Medications: Current medication list was provided and was reviewed. Anticoagulation: No Antiplatelet No Allergies: Patient has no known allergies. Review of Symptoms: A comprehensive review of systems was completed by the patient and reviewed, signed and dated in [place]. Physical Exam: There were no vitals taken for this visit. There is no height or weight on file to calculate BMI. GENERAL: No acute distress. Well nourished. NEURO: Alert and oriented x3, mood and affect appropriate. Moves all extremities, no focal deficitsnoted. HEENT: Pupils equal. EOMs grossly normal. NECK: Supple. Trachea midline PULM: Breathing comfortably on room air. No audible wheezes. CV: Regular rate and rhythm. ABDOMEN: Soft, non-distended, small approximately 1.5 cm umbilical hernia, well healed prior incision MSK: Grossly normal range of motion. No limp. SKIN: Smooth and dry. No rashes. EXT: Warm, well perfused. No venous stasis changes. Diagnostic studies I have personally reviewed include: No new imaging. Assessment/Plan: Licha Verduzco is a 30 y.o. female with with no significant PMH aside from two prior C-sectionswho presents with a small reducible umbilical hernia. She recently saw Dr. Cantu for breast reduction, abdominoplasty, and liposuction. Plan of Care: We discussed both open and minimally invasive alternatives for repair. I believe the patient would be best suited with a open approach during her abdominoplasty. The risks, benefits, and alternativesto surgery were discussed with the patient. The risks of the surgery discussed in detail with the patient include, but are not limited to, bleeding, infection, enterotomy, unplanned bowel resection, i ntraabdominal sepsis, wound sepsis, mesh infection, enterocutaneous fistula formation, chronic abdominal pain, recurrent hernia, deep venous thrombosis, pulmonary embolism, myocardial infarction, stroke, renal failure, and pneumonia. All of their questions were answered. The patient expressed understanding of these risks and wishes to proceed. We will plan to schedule this at her earliest convenience when Dr. Cantu is available along with referral for CPAP evaluation. --- Frantz Colvin MD transfer knitter Minimally Invasive GI Surgery & Abdominal Wall Reconstruction [facility] OSION WELDER documented in this encounter Plan of Treatment Not on file documented as of this encounter Visit Diagnoses Diagnosis Umbilical hernia without obstruction or gangrene Umbilical hernia without mention of obstruction or gangrene documented in this encounter Discontinued Medications Medication Sig Discontinue Reason Start Date End Da te topiramate (TOPAMAX) 50 mg tabletIndications:Abnorm al weight gain,Overweight (BMI 25.0-29.9) TAKE 1 TABLET BY MOUTH TWICE A DAY Therapy completed 02/04/2020 10/14/2020 vit,keri 74/iron/folic ( VITAMIN 1+1 ORAL) Take 1 tablet by mouth daily Therapy completed 10/14/2020 documented as of this encounter Orders Outpatient Referral Count Last Ordered Date Fir st Ordered Date AMB REFERRAL TO GENERAL SURGERY 1 documented in this encounter Care Teams Automotive Engineering Technician Relationship Specialty Start Date End Date Farheen Chan PA [address] [place] [address] PCP - General Physician Barkeeper 08/17/20 documented as of this encounter
--- OUTSIDE RECORDS SUMMARY | 2024-10-06 03:56 | XMS_ITS | Encounter Summary ---
Author Organization [facility] Address [address] [place] [address] Care Team Providers Care Steward Dishwasher Name Role Phone Unavailable Primary Care Provider Unavailabl e Encounter Details Date Type Department Care Team (Latest Contact Info) Description 02/07/2017 1:47 PM CDT Hospital Encounter [facility] OP Sanjeev So MD [address] [address] Encounter for preprocedural laboratory examination; Maternal care for scar from previous delivery; Weeks of gestation of not specified Social History Tobacco Use Types Packs/Day Years Used Date Smoking Tobacco: Former Comments Unknown Sex and Gender Information Value Date Recorded Sex Assigned at Not on file 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 HISTORICAL RESULTS Comment: ADVIA Centaur immunoassay to determine antibodies to Treponema pallidum. 02/07/2017 3:31 PM CDT 02/07/2017 3:38 PM CDT us Sanjeev So MD LAB MICROBIOLOGY - GEN ERAL ORDERABLES Final Result [facility] HISTORICAL RESULTS * (ABNORMAL) CBC with auto differential (02/07/2017 3:31 PM CDT) WBC 17.0(H) 4.6 - 10.2 x10 3/ul 02/07/2017 3:[address] [facility] HISTORICAL RESULTS RBC 3.73(L) 3.76 - 4.80 x10 6/ul 02/07/2017 3:[address] [facility] HISTORICAL RESULTS Hemoglobin 10.9(L) 11.0 - 15.0 g/dl 02/07/2017 3:[address] [facility] HISTORICAL RESULTS Hct 33.0 33.0 - 43.0 % 02/07/2017 3:[address] [facility] HISTORICAL RESULTS MCV 88.5 80.0 - 97.0 fl 02/07/2017 3:[address] [facility] HISTORICAL RESULTS MCH 29.2 27.0 - 31.2 pg 02/07/2017 3:[address] [facility] HISTORICAL RESULTS MCHC 33.0 31.8 - 35.4 g/dl 02/07/2017 3:[address] [facility] HISTORICAL RESULTS RDW 13.8 11.6 - 14.8 % 02/07/2017 3:[address] [facility] HISTORICAL RESULTS Plt Count 234 124 - 400 x10 3/ul 02/07/2017 3:[address] [facility] HISTORICAL RESULTS MPV 10.0 7.4 - 10.4 fl 02/07/2017 3:[address] [facility] HISTORICAL RESULTS Neut % 68.0 37.0 - 85.0 % 02/07/2017 3:[address] [facility] HISTORICAL RESULTS Immature Gran % 4.3(H) 0.0 - 3.0 % 02/07/2017 3:[address] [facility] HISTORICAL RESULTS Lymph % 15.5 5.0 - 45.0 % 02/07/2017 3:[address] [facility] HISTORICAL RESULTS [place] % 10.8 3.0 - 15.0 % 02/07/2017 3:[address] [facility] HISTORICAL RESULTS Eos % 1.0 0.0 - 7.0 % 02/07/2017 3:[address] [facility] HISTORICAL RESULTS Baso % 0.4 0.0 - 2.0 % 02/07/2017 3:[address] [facility] HISTORICAL RESULTS Absolute Neuts (auto) 11.6(H) 1.7 - 8.7 x10 3/ul 02/07/2017 3:[address] [facility] HISTORICAL RESULTS Immature Gran # 0.7(H) 0.0 - 0.3 x10 3/ul 02/07/2017 3:[address] [facility] HISTORICAL RESULTS Absolute Lymphs (auto) 2.6 0.2 - 4.6 x10 3/ul 02/07/2017 3:[address] [facility] HISTORICAL RESULTS Absolute Monos (auto) 1.8(H) 0.1 - 1.5 x10 3/ul 02/07/2017 3:[address] [facility] HISTORICAL RESULTS Absolute Eos (auto) 0.2 0.0 - 0.7 x10 3/ul Absolute Basos (auto) 0.1 0.0 - 0.2 x10 3/ul 02/07/2017 3:[address] [facility] HISTORICAL RESULTS 02/07/2017 3:31 PM CDT 02/07/2017 3:38 PM CDT us Sanjeev So MD LAB BLOOD ORDERABLES F inal Result [facility] HISTORICAL RESULTS * (ABNORMAL) UA with Culture Reflex (02/07/2017 3:20 PM CDT) Ur Collection Type CLEAN CATCH Ur Culture Indicated? C&S NOT INDICATED Urine Color STRAW YELLOW Urine Clarity CLEAR CLEAR Urine Glucose (UA) NORMAL NORMAL mg/dL Urine Bilirubin NEGATIVE NEGATIVE mg/dl Urine Ketones NEGATIVE NEGATIVE mg/dL Ur Specific [place] 1.002(L) 1.005 - 1.025 Urine Blood NEGATIVE NEGATIVE mg/dl Urine pH 7.0 5.0 - 8.0 Urine Protein NEGATIVE NEGATIVE mg/dL Urine Urobilinogen NORMAL NORMAL mg/dL Urine Nitrite NEGATIVE NEGATIVE Ur Leukocyte Esterase NEGATIVE NEGATIVE Michele/ul Ur Microscopic Review Not Indicated Urine RBC 1 0 - 2 /HPF Urine WBC 1 0 - 2 /HPF Urine Bacteria Few /HPF Ur Squamous Epith Cells Rare /LPF 02/07/2017 3:20 PM T 02/07/2017 3:39 PM [facility] Narrative [facility] HISTORICAL RESULTS - 02/07/2017 4:56 PM CDT Indication(s) for ordering ? us Sanjeev So MD LAB URINE ORDERABLES F inal Result Performing Organization Address City/State/[facility] Co de Phone Number [facility] HISTORICAL RESULTS documented in this encounter Visit Diagnoses Diagnosis Encounter for preprocedural laboratory examination Maternal care for scar from previous delivery Weeks of gestation of not specified documented in this encounter
--- OUTSIDE RECORDS SUMMARY | 2024-10-06 03:56 | XMS_ITS | Encounter Summary ---
Author Organization [facility] Code Climate of [facility] Address [address] [place] [address] Phone Care Team Providers Care Horticultural Specialty Grower Inside Name Role Phone Farheen Chan Primary Care Provider [phone] Reason for Visit * Reason Comments Cosmetic Consultation Encounter Details Date Type Department Care Team (Late st Contact Info) Description 10/12/2020 8:00 AM BELT BUCKLE MAKER Office Visit [facility] Surgery [address] [place] [phone] Juliana Cantu MD [address] [facility] [address] [place] [address] Encounter for cosmetic surgery (Primary Dx) Social History Tobacco Use Types Packs/Day Years Used Date Smoking Tobacco: Former Cigarettes Q uit: 08/21/2020 Smokeless Tobacco: Never Alcohol Use Standard Drinks/Week Comments Yes 0 (1 standard drink = 0.6 oz pur e alcohol) rarely Comments Unknown Sex and Gender Information Value Date Recorded Sex Assigned at Not on file Legal Sex Female 7:03 PM BELT BUCKLE MAKER Gender Identity Not on file Sexual Orientation Not on file documented as of this encounter Last Filed Vital Signs Vital Sign Reading Time Taken Comments Blood Pressure - - Pulse - - Temperature 36.7 ??C (98 ??F) 10/12/2020 7:57 AM BELT BUCKLE MAKER Respiratory Rate - - Oxygen Saturation - - Inhaled Oxygen Concentration - - Weight 79.4 kg (175 lb) 10/12/2020 7:57 AM BELT BUCKLE MAKER Height 167.6 cm (5' 6 ) 10/12/2020 7:57 AM BELT BUCKLE MAKER Body Mass Index 28.25 10/12/2020 7:57 AM BELT BUCKLE MAKER documented in this encounter Progress Notes * Juliana Cantu MD - 10/12/2020 8:00 AM CST Plastic Surgery Consult Reason for Consult: Breast reduction and abdominoplasty Requesting Provider: None SUBJECTIVE Licha Verduzco is a 30 y.o. female with chief complaint of desire for breast reduction and abdominal contouring. HPI: This is a very pleasant 30-year-old woman who is interested in breast reduction as well as abdominal contouring. She states she has always had a very large chest and it is always bothered her. She has had 2 children and nursed for a number of years and states they have gotten even saggy ear and larger. She does complain of neck and back pain. She would like for them to be significantly smaller. She denies any breast pain, breast masses, nipple discharge or nipple retraction. She is also bothered by the contour of her abdomen and does have an umbilical hernia. She does not plan to have any future children. She had 2 sections with no problems. She does state that she recently lost 20 lb a few months ago through diet exercise and feels that she is at a good stable weight. She also has a history of social tobacco use but has not had any nicotine since August and does not plan tohave any in the future Past Medical History: Diagnosis Date ??? Personal history of other diseases of the respiratory system Personal history of asthma - (Added by TW Conv) Past Surgical History: Procedure Laterality Date ??? SECTION 2 (Not in a hospital admission) No Known Allergies Social History Tobacco Use ??? Smoking status: Former Smoker Types: Cigarettes Quit date: 08/21/2020 Years since quittin.1 ??? Smokeless tobacco: Never Used Substance Use Topics ??? Alcohol use: Yes Comment: rarely Family History Problem Relation Age of Onset ??? Cancer Father Reported Family History Of Cancer - Father - liver and renal (Added by TW Conv) ??? COPD Mother ??? Cancer Mother REVIEW OF SYSTEMS: GENERAL: Denies fevers, chills or malaise. SKIN: Denies rashes, sores. HEAD: Denies headache, migraine. EYES: Denies vision change, glaucoma. RESPIRATORY: Denies cough, sputum, hemoptysis, TB, pneumonia. CARDIAC: Denies chest pain, palpitations, dyspnea, orthopnea. GASTROINTESTINAL: Denies heartburn/reflux, nausea, dyspepsia, URINARY: Denies polyuria, dysuria, infections. VASCULAR: Denies intermittent claudication, leg cramps, thrombophlebitis. Denies DVT, PE. MUSCULOSKELETAL: Denies systemic arthritis. Denies osteoarthritis. Denies back pain NEUROLOGIC: Denies recent fainting, blackouts, seizures, paralysis, tremors, numbness, gait change,stroke. HEMATOLOGIC: Denies easy bruising or bleeding, past transfusion reactions. PSYCH: Denies depression, denies anxiety OBJECTIVE Vitals: Vitals Temp 36.7 ??C (98 ??F) (Temporal) Ht 167.6 cm (5' 6 ) Wt 79.4 kg (175 lb) BMI 28.25 kg/m?? Temp 36.7 ??C (98 ??F) (Temporal) Ht 167.6 cm (5' 6 ) Wt 79.4 kg (175 lb) BMI 28.25 kg/m?? GENERAL: well developed individual in no acute distress. NEURO: Alert and oriented x3, mood and affect appropriate. HEENT: Pupils equal. EOMs grossly normal. NECK: Supple. NO thyromegaly PULMONARY: Breathing comfortably on room air. No audible wheezes. CARDIOVASCULAR: Regular rate and rhythm. No venous stasis changes. SKIN: Smooth and dry. No rashes. ABDOMEN: Soft, non-tender, no masses. No hepatomegaly, no splenomegaly. Small umbilical hernia which is easily reducible. She does have excess skin and fat of the abdomen with a small pannus. She haswell-healed Pfannenstiel scars. She has excess fat of the waist flanks and back as well. She does have a lax abdominal wall MUSCULOSKELETAL: Grossly normal range of motion. No limp. BREAST: Bilateral breasts are very large and heavy with grade 3 ptosis. No dominant masses, nipple discharge or nipple retraction. She does have a low breast footprint with her inframammary fold being just above her elbow crease. She also has excess fat on the lateral chest which would be amenable to liposuction ASSESSMENT/PLAN Patient Active Problem List Diagnosis ??? Irregular menstrual cycle ??? Female infertility ??? Abnormal weight gain ??? Overweight (BMI 25.0-29.9) This is a woman who is an excellent candidate for breast reduction surgery. We discussed breast reduction surgery in detail. We discussed where the scars would be placed. Risks, benefits and alternatives were discussed including but not limited to risks of anesthesia, bleeding, hematoma, seroma, loss of or changes in sensation, unsightly scarring, wound healing complications or dehiscence, asymmetries, and aging over time. We also discussed how breast reduction surgery can interfere with mammograms. We also discussed a breast reduction surgery can interfere with the ability to breast feed in the future. We discussed the breast reduction surgery does include a breast lift component of the surgery but that no breast lift last forever. They will continue to age over time She is also a good candidate for abdominoplasty with liposuction of her back lateral chest waist and flanks. We discussed abdominoplasty in great detail. We discussed risks, benefits, alternatives including but not limited to risks of anesthesia, bleeding, hematoma, seroma, infection, unsightly scarring or scar widening, wound healing problems or dehiscence, DVT and PE. We also discussed changes in sensation that could be permanent. We discussed muscle plication and the pros and cons of doing so. We also discussed the postoperative recovery protocol. We discussed limiting strenuous activity for 4-6 weeks as well as the use of compression garments. We discussed edema and that postoperative swelling can be present for at least 3 months and up to 12 months after surgery. We also discussed expectation of at least some bruising. We discussed liposuction in great detail. We discussed risks, benefits, and alternatives including but not limited to risks of anesthesia, bleeding, hematoma, seroma, infection, unsightly scarring, contour irregularities or divo,t need for revision procedures, changes in sensation which could be per manent DVT & PE and fat emboli. We also discussed that liposuction does not tightened scan or decrease the appearance of cellulite. In fact it is in some cases it can worsen these things. We alsodiscussed prolonged edema and the fact that swelling him last at least 3 months and up to 12 months. We also discussed an expectation of bruising. I do believe it is reasonable to do an umbilical hernia repair at the same time and we will refer her to the general surgeons. Juliana Cantu MD 10/12/2020 8:20 AM Juliana Cantu MD BUCKLE MAKER documented in this encounter Plan of Treatment Not on file documented as of this encounter Visit Diagnoses Diagnosis Encounter for cosmetic surgery- Primary documented in this encounter Historical Medications * This list may reflect changes made after this encounter. Dulera 200-5 mcg/actuation inhaler 09/20/2020 vit,keri 74/iron/folic ( VITAMIN 1+1 ORAL) Take 1 tablet by mouth daily 10/14/2020 added in this encounter Care Teams Horticultural Specialty Grower Inside Relationship Specialty Start Date End Date Farheen Chan PA [address] [place] [address] PCP - General Physician Dress Marker 08/17/20 documented as of this encounter
--- OUTSIDE RECORDS SUMMARY | 2024-10-06 03:56 | XMS_ITS | Encounter Summary ---
Author Organization [facility] Facility Care Team Providers Care Logistics Analytics Manager Name Role Phone Zuleika Hanley NP Primary Care Provider [phone] Encounter Details Date Type Department Care Team (Latest Contact Info) Description 06/11/2019 Travel Social History Tobacco Use Types Packs/Day Years Used Date Smoking Tobacco: Former Alcohol Use Standard Drinks/Week Comments Yes 0 (1 standard drink = 0.6 oz pur e alcohol) rarely Comments Unknown Sex and Gender Information Value Date Recorded Sex Assigned at Not on file Legal Sex Female 7:03 PM BOOK AUTHOR Gender Identity Not on file Sexual Orientation Not on file documented as of this encounter Plan of Treatment Not on file documented as of this encounter Visit Diagnoses Not on filedocumented in this encounter Care Teams Logistics Analytics Manager Relationship Specialty Start Date End Date Zuleika Hanley NP PCP - General Family Practice 06/11/19 02/03/20 documented as of this encounter
--- OUTSIDE RECORDS SUMMARY | 2024-10-06 03:56 | XMS_ITS | Encounter Summary ---
Author Organization [facility] Address [address] [facility] [address] [place] [address] Care Team Providers Care Tugger Operator Name Role Phone Zuleika Hanley NP Primary Care Provider [phone] Reason for Visit * Reason Comments Weight Management Weight management f/ u 2 months Encounter Details Date Type Department Care Team (Late st Contact Info) Description 08/14/2019 8:15 AM AUTOMATIC FURNACE OPERATOR Office Visit [facility] After Hours Clinic [address] [facility] [address] [place] [address] Cosmo Stoll MD [address] [address] Abnormal weight gain (Primary Dx); Overweight (BMI 25.0-29.9) Social History Tobacco Use Types Packs/Day Years Used Date Smoking Tobacco: Former Alcohol Use Standard Drinks/Week Comments Yes 0 (1 standard drink = 0.6 oz pur e alcohol) rarely Comments Unknown Sex and Gender Information Value Date Recorded Sex Assigned at Not on file Legal Sex Female 7:03 PM AUTOMATIC FURNACE OPERATOR Gender Identity Not on file Sexual Orientation Not on file documented as of this encounter Last Filed Vital Signs Vital Sign Reading Time Taken Comments Blood Pressure 120/78 08/14/2019 8:10 AM AUTOMATIC FURNACE OPERATOR Pulse 66 08/14/2019 8:10 AM AUTOMATIC FURNACE OPERATOR Temperature 37.4 ??C (99.4 ??F) 08/14/2019 8:10 AM CS T Respiratory Rate 16 08/14/2019 8:10 AM AUTOMATIC FURNACE OPERATOR Oxygen Saturation 99% 08/14/2019 8:10 AM AUTOMATIC FURNACE OPERATOR Inhaled Oxygen Concentration - - Weight 74.8 kg (165 lb) 08/14/2019 8:10 AM AUTOMATIC FURNACE OPERATOR Height 170.2 cm (5' 7 ) 08/14/2019 8:10 AM AUTOMATIC FURNACE OPERATOR Body Mass Index 25.84 08/14/2019 8:10 AM AUTOMATIC FURNACE OPERATOR documented in this encounter Ordered Prescriptions Prescription Sig Dispense Quantity Refills Last Filled Start Date End Date topiramate (TOPAMAX) 50 mg tabletIndications: Abnormal weight gain,Overweight (BMI 25.0-29.9) Take 1 tablet (50 mg total) by mouth 2 (two) times a day 60 tablet 2 08/14/2019 0 phentermine (ADIPEX-P) 37.5 mg tabletIndications: Weight Loss Management for Obese Patient (BMI >= 30) Take 1 tablet (37.5 mg total) by mouth daily before breakfast 30 tablet 2 08/14/2019 0 documented in this encounter Progress Notes * Cosmo Stoll MD - 08/14/2019 8:15 AM CST Images from the original note were not included. Patient ID: Licha Verduzco is a 29 y.o. female. Chief Complaint. Chief Complaint Patient presents with ??? Weight Management Weight management f/u 2 months HPI. Patient is a 29 y.o. female HPI Lifestyle Medicine For Weight Management: Previous Dietary Approaches: Previously been on medication about 1 year ago. Didn't loose much. MARI: no Mental Health: Stable Diabetes: No Previous History of Weight Loss Surgery: None First Visit Date: 06/11/19 First Visit Weight: 177lb. Dates: Weight (lb) Wt Readings from Last 3 Encounters: 08/14/19 74.8 kg (165 lb) 06/11/19 80.3 kg (177 lb) 01/22/14 72.7 kg (160 lb 6.2 oz) Total Weight Loss: 12lb. Treatment: Medication: Phentermine Meal Replacement/Delivery: No Specific Diet: Not on any specific Diet Food Diary: No Activity: is walking and [place] 5000 [place] [id number] Past Medical History: Diagnosis Date ??? Personal [...] Current Medications: Outpatient Encounter Medications as of 08/14/2019 Medication Sig Dispense Refill ??? phentermine (ADIPEX-P) 37.5 mg tablet Take 1 tablet (37.5 mg total) by mouth daily before breakfast 30 tablet 2 ??? PROAIR HFA 90 mcg/actuation inhaler ??? topiramate (TOPAMAX) 50 mg tablet Take 1 tablet (50 mg total) by mouth 2 (two) times a day 60 tablet 2 ??? [DISCONTINUED] phentermine (ADIPEX-P) 37.5 mg tablet Take 1 tablet (37.5 mg total) by mouth daily before breakfast 30 tablet 2 No facility-administered encounter medications on file as of 08/14/2019. Review of Systems: Review of Systems Constitutional: [...] not nervous/anxious and is not hyperactive. BP 120/78 (BP Location: Left arm, Patient Position: Sitting) Pulse 66 Temp 37.4 ??C (99.4 ??F) (Oral) Resp 16 Ht 170.2 cm (5' 7 ) Wt 74.8 kg (165 lb) SpO2 99% BMI 25.84 kg/m?? Physical Exam: Physical Exam Constitutional: He [...] Abnormal weight gain (Primary) Assessment & Plan: Overall Condition Chronic Condition: [...] times a day Body mass index is 25.84 kg/m??. BMI Plan: Nutrition/Activities/Behavioral Counseling. Education Provided. Follow up 1-3 months. Cosmo Stoll MD MATIC FURNACE OPERATOR documented in this encounter Miscellaneous Notes * Assessment & Plan Note - Cosmo Stoll MD - 08/14/2019 8:33 AM CSTAssociated Problem(s): Abnormal weight gain Overall Condition Chronic Condition: Uncontrolled. Treatment: New [...] also printed and hand-delivered to the patient. MATIC FURNACE OPERATOR documented in this encounter Plan of Treatment Not on file documented as of this encounter Visit Diagnoses Diagnosis Abnormal weight gain- Primary Overweight (BMI 25.0-29.9) Overweight documented in this encounter Discontinued Medications Medication Sig Discontinue Reason Start Date End Da te phentermine (ADIPEX-P) 37.5 mg tabletIndications:Weigh t Loss Management for Obese Patient (BMI >= 30) Take 1 tablet (37.5 mg total) by mouth daily before breakfast Reorder 06/11/2019 08/14/2019 documented as of this encounter Care Teams Tugger Operator Relationship Specialty Start Date End Date Zuleika Hanley NP PCP - General Family Practice 06/11/19 02/03/20 documented as of this encounter
--- OUTSIDE RECORDS SUMMARY | 2024-10-06 03:56 | XMS_ITS | Encounter Summary ---
Author Organization [facility] Address [address] [place] [address] Care Team Providers Care Nozzle Worker Name Role Phone Zuleika Hanley NP Primary Care Provider [phone] Encounter Details Date Type Department Care Team (Late st Contact Info) Description 11/06/2019 Telephone [facility] After Hours Clinic [address] [facility] [address] [place] [address] Cosmo Stoll MD [address] [facility] [address] [place] [address] Social History Tobacco Use Types Packs/Day Years Used Date Smoking Tobacco: Former Alcohol Use Standard Drinks/Week Comments Yes 0 (1 standard drink = 0.6 oz pur e alcohol) rarely Comments Unknown Sex and Gender Information Value Date Recorded Sex Assigned at Not on file Legal Sex Female 7:03 PM ASSISTANT PROFESSOR OF RELIGION Gender Identity Not on file Sexual Orientation Not on file documented as of this encounter Ordered Prescriptions Prescription Sig Dispense Quantity Refills Last Filled Start Date End Date topiramate (TOPAMAX) 50 mg tabletIndications: Abnormal weight gain,Overweight (BMI 25.0-29.9) Take 1 tablet (50 mg total) by mouth 2 (two) times a day 60 tablet 11/06/2019 11/20/2019 documented in this encounter Miscellaneous Notes * Telephone Encounter - Janet Pat LPN - 11/06/2019 11:01 AM ASSISTANT PROFESSOR OF RELIGION Refill topamax STANT PROFESSOR OF RELIGION documented in this encounter Plan of Treatment Not on file documented as of this encounter Visit Diagnoses Diagnosis Abnormal weight gain Overweight (BMI 25.0-29.9) Overweight documented in this encounter Discontinued Medications Medication Sig Discontinue Reason Start Date End Da te topiramate (TOPAMAX) 50 mg tabletIndications:Abnorm al weight gain,Overweight (BMI 25.0-29.9) Take 1 tablet (50 mg total) by mouth 2 (two) times a day Reorder 08/14/2019 11/06/2019 documented as of this encounter Care Teams Nozzle Worker Relationship Specialty Start Date End Date Zuleika Hanley NP PCP - General Family Practice 06/11/19 02/03/20 documented as of this encounter
--- OUTSIDE RECORDS SUMMARY | 2024-10-06 03:56 | XMS_ITS | Encounter Summary ---
Author Organization [facility] Address [address] [facility] [facility] [address] [place] [address] Care Team Providers Care Chief Green Officer Name Role Phone Farheen Chan Primary Care Provider [phone] Reason for Visit * Reason Comments Follow-up [facility]; interetested in Rx; Encounter Details Date Type Department Care Team (Late st Contact Info) Description 05/25/2021 10:00 AM CDT Telemedicine [facility] After Hours Clinic [address] [place] [address] [address] [place] [address] Cosmo Stoll MD [address] [facility] [address] [address] Abnormal weight gain (Primary Dx); [...] on file Legal Sex Female 7:03 PM MANAGER SEARCH Gender Identity Not on file Sexual Orientation Not on file documented as of this encounter Last Filed Vital Signs Vital Sign Reading Time Taken Comments Blood Pressure - - Pulse - - Temperature - - Respiratory Rate - - Oxygen Saturation - - Inhaled Oxygen Concentration - - Weight 78 kg (172 lb) 05/25/2021 9:52 AM CDT Height 167.6 cm (5' 5.98 ) 05/25/2021 9:52 AM CD T Body Mass Index 27.77 05/25/2021 9:52 AM CDT documented in this encounter Ordered Prescriptions Prescription Sig Dispense Quantity Refills Last Filled Start Date End Date topiramate (TOPAMAX) 50 mg tabletIndications: Abnormal weight gain,Overweight (BMI 25.0-29.9) Take 1 tablet (50 mg total) by mouth 2 (two) times a day 180 tablet 05/25/2021 1 phentermine (ADIPEX-P) 37.5 mg tabletIndications: Weight Loss Management for Obese Patient (BMI >= 30) Take 0.5 tablets (18.75 mg total) by mouth 2 (two) times a day 90 tablet 05/25/2021 1 documented in this encounter Progress Notes * Cosmo Stoll MD - 05/25/2021 10:00 AM CDT Images from the original note were not included. Patient ID: Licha Verduzco is a 31 y.o. female. Chief Complaint. Chief Complaint Patient presents with ??? Follow-up [facility]; interetested in Rx; HPI. Patient is a 31 y.o. female HPI Lifestyle Medicine For Weight Management: Previous Dietary Approaches: Previously been on medication about 1 year ago. Didn't loose much. MARI: no Mental Health: Stable Diabetes: No Previous History of Weight Loss Surgery: None First Visit Date: 06/11/19 First Visit Weight: 177lb. 05/25/21: 172lb Dates: Weight (lb) Wt Readings from Last 3 Encounters: 05/25/21 78 kg (172 lb) 10/14/20 84.3 kg (185 lb 12.8 oz) 10/12/20 79.4 kg (175 lb) Total Weight Loss: 5lb. Treatment: Medication: Phentermine Meal Replacement/Delivery: No Specific Diet: Not on any specific Diet Food Diary: No Activity: is walking and [place] 5000 [place] [address] Past Medical History: Diagnosis Date ??? Asthma Personal history of asthma - (Added by TW Conv) Past Surgical History: Procedure Laterality Date ??? SECTION 2014, 2016 No Known Allergies Social History Tobacco Use ??? Smoking status: Former Smoker Types: Cigarettes Quit date: 08/21/2020 Years since quittin.7 ??? Smokeless tobacco: Never Used Substance Use Topics ??? Alcohol use: Yes Comment: rarely Family History Problem Relation Age of Onset ??? Cancer Father Reported Family History Of Cancer - Father - liver and renal (Added by TW Conv) ??? COPD Mother ??? Cancer Mother Current Medications: Outpatient Encounter Medications as of 05/25/2021 Medication Sig Dispense Refill ??? Dulera 200-5 mcg/actuation inhaler ??? PROAIR HFA 90 mcg/actuation inhaler ??? phentermine (ADIPEX-P) 37.5 mg tablet Take 0.5 tablets (18.75 mg total) by mouth 2 (two) times a day 90 tablet 0 ??? topiramate (TOPAMAX) 50 mg tablet Take 1 tablet (50 mg total) by mouth 2 (two) times a day 180 tablet 0 No facility-administered encounter medications on file as of 05/25/2021. Review of Systems: Review of Systems Constitutional: [...] Ht 167.6 cm (5' 5.98 ) Wt 78 kg (172 lb) BMI 27.77 kg/m?? Physical Exam: Physical Exam This was a telemedicine visit with Licha Verduzco alone which took place via real-time video connection with [employer]. During the visit, I was located at the [facility] [address] and patient was located at home in the state of [place]. The video session started at 10 :00am and ended at 10:30am . The patient has been informed that [...] for this visit: Abnormal weight gain (Primary) - phentermine (ADIPEX-P) 37.5 mg tablet; Take 0.5 tablets (18.75 mg total) by mouth 2 (two) times aday - topiramate (TOPAMAX) 50 mg tablet; Take 1 tablet (50 mg total) by mouth 2 (two) times a day Overweight (BMI 25.0-29.9) - phentermine (ADIPEX-P) 37.5 mg tablet; Take 0.5 tablets (18.75 mg total) by mouth 2 (two) times aday - topiramate (TOPAMAX) 50 mg tablet; Take 1 tablet (50 mg total) by mouth 2 (two) times a day Office Visit based on Time: I have spent more than 30 minutes Face to Face and lqp-xjyf-vl-face activities with Patient during office visit and on the date of service. Mak-gvel-cz-face activities included Preparing to see the patient [...] to the patient. Body mass index is 27.77 kg/m??. BMI Plan: Nutrition/Activities/Behavioral Counseling. Education Provided. Follow up 1-3 months. Cosmo Stoll MD documented in this encounter Plan of Treatment Not on file documented as of this encounter Visit Diagnoses Diagnosis Abnormal weight gain- Primary Overweight (BMI 25.0-29.9) Overweight documented in this encounter Care Teams Chief Green Officer Relationship Specialty Start Date End Date Farheen Chan PA [address] [place] [address] PCP - General Physician Butadiene Converter Utility Operator 08/17/20 documented as of this encounter
--- OUTSIDE RECORDS SUMMARY | 2024-10-06 03:56 | XMS_ITS | Encounter Summary ---
Author Organization [facility] Facility Care Team Providers Care Production Generalist Name Role Phone Zuleika Hanley NP Primary Care Provider [phone] Encounter Details Date Type Department Care Team (Latest Contact Info) Description 08/14/2019 Travel Social History Tobacco Use Types Packs/Day Years Used Date Smoking Tobacco: Former Alcohol Use Standard Drinks/Week Comments Yes 0 (1 standard drink = 0.6 oz pur e alcohol) rarely Comments Unknown Sex and Gender Information Value Date Recorded Sex Assigned at Not on file Legal Sex Female 7:03 PM [employer] Gender Identity Not on file Sexual Orientation Not on file documented as of this encounter Plan of Treatment Not on file documented as of this encounter Visit Diagnoses Not on filedocumented in this encounter Care Teams Production Generalist Relationship Specialty Start Date End Date Zuleika Hanley NP PCP - General Family Practice 06/11/19 02/03/20 documented as of this encounter
--- OUTSIDE RECORDS SUMMARY | 2024-10-06 03:56 | XMS_ITS | Encounter Summary ---
Author Organization [facility] Healthcare Address [address] [place] [address] Care Team Providers Care Head Of Store Operations Name Role Phone Unavailable Primary Care Provider Unavailabl e Encounter Details Date Type Department Care Team (Latest Contact Info) Description 06/13/2015 1:18 AM CDT - 06/16/2015 10:20 AM CDT Hospital Encounter [facility] Sanjeev So MD [address] [address] Secondary uterine inertia, with delivery; Fetopelvic disproportion, delivered; Other current maternal conditions classifiable elsewhere, with delivery; History of other genital system and obstetric disorders; Delivery outcome of single liveborn infant Social History Tobacco Use Types Packs/Day Years Used Date Smoking Tobacco: Former Comments Unknown Sex and Gender Information Value Date Recorded Sex Assigned at Not on file 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 Gender Identity Not on file Sexual Orientation Not on file documented as of this encounter Last Filed Vital Signs Vital Sign Reading Time Taken Comments Blood Pressure 111/71 06/12/2015 5:44 PM CDT Pulse 71 06/12/2015 5:44 PM CDT Temperature 36.3 ??C (97.3 ??F) 06/12/2015 5:44 PM CD T Respiratory Rate - - Oxygen Saturation 97% 06/12/2015 5:44 PM CDT Inhaled Oxygen Concentration - - Weight 86.2 kg (190 lb) 06/12/2015 5:44 PM CDT Height 167.6 cm (5' 6 ) 06/12/2015 5:44 PM CDT Body Mass Index 30.67 06/12/2015 5:44 PM CDT documented in this encounter Plan of Treatment Not on file documented as of this encounter Procedures Procedure Name Priority Date/Time Associated Diagnosis Comments SCAN - PATHOLOGY 06/21/2019 12:0 0 AM CDT CBC WITH AUTO DIFFERENTIAL Routine 06/15/2015 7:17 AM CDT CBC WITH AUTO DIFFERENTIAL Routine 06/12/2015 5:38 PM CDT RPR Routine 06/12/2015 5:38 PM CDT documented in this encounter Results * SCAN - PATHOLOGY (06/21/2019 12:00 AM CDT) Narrative 06/21/2019 12:00 AM CDT Ordered by an unspecified provider. us Historical Provider MD Final Res ult * (ABNORMAL) CBC with auto differential (06/15/2015 7:17 AM CDT) WBC 16.9(H) 4.6 - 10.2 x10 3/ul RBC 3.13(L) 3.76 - 4.80 x10 6/ul Hemoglobin 9.0(L) 11.0 - 15.0 g/dl Hct 27.7(L) 33.0 - 43.0 % MCV 88.5 80.0 - 97.0 fl MCH 28.8 27.0 - 31.2 pg MCHC 32.5 31.8 - 35.4 g/dl RDW 14.4 11.6 - 14.8 % Plt Count 214 124 - 400 x10 3/ul MPV 9.9 7.4 - 10.4 fl Differential Method AUTOMATED DIFF --------- -- Neut % 78.6 37.0 - 85.0 % Immature Gran % 0.8 0.0 - 3.0 % Lymph % 9.7 5.0 - 45.0 % [place] Johns % 10.0 3.0 - 15.0 % Eos % 0.5 0.0 - 7.0 % Baso % 0.4 0.0 - 2.0 % ABSOLUTE COUNTS ABSOLUTE COUNTS --------- -- Absolute Neuts (auto) 13.3(H) 1.7 - 8.7 x10 3/ul Immature Gran # 0.1 0.0 - 0.3 x10 3/ul Absolute Lymphs (auto) 1.6 0.2 - 4.6 x10 3/ul Absolute Monos (auto) 1.7(H) 0.1 - 1.5 x10 3/ul Absolute Eos (auto) 0.1 0.0 - 0.7 x10 3/ul 06/15/2015 7:41 AM CDT [facility] HISTORICAL RESULTS Absolute Basos (auto) 0.1 0.0 - 0.2 x10 3/ul 06/15/2015 7:41 AM CDT [facility] HISTORICAL RESULTS 06/15/2015 7:17 AM CDT 06/15/2015 7:23 AM CDT Sanjeev So MD LAB BLOOD ORDERABLES F inal Result [facility] HISTORICAL RESULTS * RPR, serum (06/12/2015 5:38 PM CDT) RPR NONREACTIVE NONREACTIVE 06/13/2015 1:11 PM CDT [facility] HISTORICAL RESULTS 06/12/2015 5:38 PM CDT 06/12/2015 5:44 PM CDT Sanjeev So MD LAB MICROBIOLOGY - GEN ERAL ORDERABLES Final Result Performing Organization Address [facility] Co de Phone Number [facility] HISTORICAL RESULTS * (ABNORMAL) CBC with auto differential (06/12/2015 5:38 PM CDT) WBC 14.8(H) 4.6 - 10.2 x10 3/ul 06/12/2015 6:17 PM CDT [facility] HISTORICAL RESULTS RBC 3.30(L) 3.76 - 4.80 x10 6/ul 06/12/2015 6:17 PM CDT [facility] HISTORICAL RESULTS Hemoglobin 9.9(L) 11.0 - 15.0 g/dl 06/12/2015 6:17 PM CDT [facility] HISTORICAL RESULTS Hct 29.3(L) 33.0 - 43.0 % 06/12/2015 6:17 PM CDT [facility] HISTORICAL RESULTS MCV 88.8 80.0 - 97.0 fl 06/12/2015 6:17 PM CDT [facility] HISTORICAL RESULTS MCH 30.0 27.0 - 31.2 pg 06/12/2015 6:17 PM CDT [facility] HISTORICAL RESULTS MCHC 33.8 31.8 - 35.4 g/dl RDW 14.3 11.6 - 14.8 % Plt Count 212 124 - 400 x10 3/ul MPV 10.4 7.4 - 10.4 fl Differential Method AUTOMATED DIFF --------- -- Neut % 68.4 37.0 - 85.0 % Immature Gran % 1.2 0.0 - 3.0 % Lymph % 19.5 5.0 - 45.0 % [place] % 9.8 3.0 - 15.0 % Eos % 0.8 0.0 - 7.0 % Baso % 0.3 0.0 - 2.0 % ABSOLUTE COUNTS ABSOLUTE COUNTS --------- -- Absolute Neuts (auto) 10.1(H) 1.7 - 8.7 x10 3/ul Immature Gran # 0.2 0.0 - 0.3 x10 3/ul Absolute Lymphs (auto) 2.9 0.2 - 4.6 x10 3/ul Absolute Monos (auto) 1.4 0.1 - 1.5 x10 3/ul Absolute Eos (auto) 0.1 0.0 - 0.7 x10 3/ul 06/12/2015 6:17 PM CDT [facility] HISTORICAL RESULTS Absolute Basos (auto) 0.1 0.0 - 0.2 x10 3/ul 06/12/2015 6:17 PM CDT [facility] 06/12/2015 5:38 PM CDT 06/12/2015 5:44 PM CDT us Sanjeev So MD LAB BLOOD ORDERABLES F inal Result [facility] HISTORICAL RESULTS documented in this encounter Visit Diagnoses Diagnosis Secondary uterine inertia, with delivery Fetopelvic disproportion, delivered Other current maternal conditions classifiable elsewhere, with delivery History of other genital system and obstetric disorders Delivery outcome of single liveborn documented in this encounter
--- OUTSIDE RECORDS SUMMARY | 2024-10-06 03:56 | XMS_ITS | Encounter Summary ---
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
--- OUTSIDE RECORDS SUMMARY | 2024-10-06 03:56 | XMS_ITS | Encounter Summary ---
Author Organization [facility] Address [address] [place] [address] Care Team Providers Care Ethylene Compressor Operator Name Role Phone Farheen Chan Primary Care Provider [phone] Reason for Referral * Diagnostic Imaging (Routine) - Closed Specialty Diagnoses / Procedures Referred By Ruchi padilla Referred To Contact Diagnoses Localized swelling, mass and lump, trunk Procedures US Soft Tissue Neck Farheen Chan PA [address] [place] [address] Phone: tel: fax: [address] [phone] Referral ID Status Reason Start Date Expiration Date Visits Re quested Visits Authorized [id number] Closed 02/25/2021 03/27/2022 1 1 Reason for Visit * Diagnostic Imaging (Routine) - Closed Specialty Diagnoses / Procedures Referred By Ruchi padilla Referred To Contact Diagnoses Localized swelling, mass and lump, trunk Procedures US Soft Tissue Neck Farheen Chan PA [address] [place] [address] Phone: tel: fax: [address] [phone] Referral ID Status Reason Start Date Expiration Date Visits Re quested Visits Authorized [id number] Closed 02/25/2021 03/27/2022 1 1 Encounter Details Date Type Department Care Team (Latest Contact Info) Description 03/08/2021 2:44 PM CDT - 03/08/2021 11:59 PM CDT Hospital Encounter [address] [address] Localized swelling, mass and lump, trunk Discharge Disposition: Discharge to home or self care Social History Tobacco Use Types Packs/Day Years Used Date Smoking Tobacco: Former Cigarettes Q uit: 08/21/2020 Smokeless Tobacco: Never Alcohol Use Standard Drinks/Week Comments Yes 0 (1 standard drink = 0.6 oz pur e alcohol) rarely Comments Unknown Sex and Gender Information Value Date Recorded Sex Assigned at Not on file 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 Gender Identity Not on file Sexual Orientation Not on file documented as of this encounter Medications at Time of Discharge Medication Sig Dispense Quantity Refills Last Filled Start D ate End Date Dulera 200-5 mcg/actuation inhaler 09/20/2020 PROAIR HFA 90 mcg/actuation inhaler 05/31/2019 documented as of this encounter Discharge Disposition Disposition Code Departure Means Destination Discharge to home or self care documented in this encounter Plan of Treatment Not on file documented as of this encounter Procedures Procedure Name Priority Date/Time Associated Diagnosis Comments US SOFT TISSUE NECK Schedule Routine, Read Routine (OP Routine) 03/08/2021 3:03 PM CDT Localized swelling, mass and lump, trunk documented in this encounter Results * US Soft Tissue Neck (03/08/2021 3:03 PM CDT) Anatomical Region Laterality Modality Head and Neck N/A Ultrasound 03/08/2021 3:26 PM CDT Narrative 03/08/2021 3:30 PM CDT EXAM DESCRIPTION: ?? US SOFT TISSUE NECK REASON FOR STUDY: ??Possible left neck mass Duration = couple months TECHNIQUE: ??A Dynamic assessment was performed of the ??left neck by the dye weigher, with selected grayscale and color Doppler images acquired and recorded in PACS. COMPARISON: ??None FINDINGS: Targeted sonographic evaluation of the posterior left neck 2 adjacent homogeneous lesion within the subcutaneous soft tissues measuring up to 1.1 x 1.6 x 0.3 cm and 0.8 x 1.2 x 0.3 cm. ??These may be in continuity. ??There are isoechoic to the adjacent surrounding fat.. There is no internal vascularity. ?? These may reflect low-grade fatty lesion such as but not limited to lipomas. ?? Recommend clinical follow-up with repeat ultrasound in the setting of worsening or enlargement. IMPRESSION: ??2 adjacent homogeneous lesions within the subcutaneous soft tissues of posterior left neck measuring up to 1.6 cm. ??Findings are nonspecific but favored to reflect low-grade fatty lesion such as but not limited to lipomas. ??Recommend clinical follow-up and repeat ultrasound in the setting of worsening or enlargement. ??Ultimately, definitive diagnosis would require excision. THIS IS AN ELECTRONICALLY VERIFIED FINAL REPORT 03/08/2021 3:30 PM - Electronically signed by Brynn Thakkar M.D. D: ??03/08/2021 3:30 PM T: Report ID: [id number] Reading Location: ??[id number] Procedure Note Brynn Thakkar MD - 03/08/2021 EXAM DESCRIPTION: US SOFT TISSUE NECK REASON FOR STUDY: Possible left neck mass Duration = couple months TECHNIQUE: A Dynamic assessment was performed of the left neck by the dye weigher, with selected grayscale and color Doppler images acquired and recorded in PACS. COMPARISON: None FINDINGS: Targeted sonographic evaluation of the posterior left neck 2 adjacent homogeneous lesion within the subcutaneous soft tissues measuring up to1.1 x 1.6 x 0.3 cm and 0.8 x 1.2 x 0.3 cm. These may be in continuity. Thereare isoechoic to the adjacent surrounding fat.. There is no internalvascularity. These may reflect low-grade fatty lesion such as but not limited tolipomas. Recommend clinical follow-up with repeat ultrasound in the setting of worsening or enlargement. IMPRESSION: 2 adjacent homogeneous lesions within the subcutaneous soft tissues of posterior left neck measuring up to 1.6 cm. Findings are nonspecific but favored to reflect low-grade fatty lesion such as but not limited to lipomas. Recommend clinical follow-up and repeat ultrasound inthe setting of worsening or enlargement. Ultimately, definitive diagnosiswould require excision. THIS IS AN ELECTRONICALLY VERIFIED FINAL REPORT 03/08/2021 3:30 PM - Electronically signed by Brynn Thakkar M.D. BG T: Report ID: [id number] Reading Location: [id number] us Farheen PATEL IMG US PROCEDURES Final Result documented in this encounter Visit Diagnoses Diagnosis Localized swelling, mass and lump, trunk documented in this encounter Care Teams Ethylene Compressor Operator Relationship Specialty Start Date End Date Farheen Chan PA [address] [place] [address] PCP - General Physician Multimedia Production Assistant 08/17/20 documented as of this encounter
--- OUTSIDE RECORDS SUMMARY | 2024-10-06 03:56 | XMS_ITS | Referral Summary ---
Author Organization [facility] Address [address] [place] [address] Care Team Providers Care Bottom Wheeler Name Role Phone Farheen Chan Primary Care Provider [phone] Allergies No known active allergies Medications PROAIR [...] 06/11/2019 Assessment & Plan (08/14/2019 8:33 AM ADMINISTRATOR OF HOME HEALTH): Overall Condition Chronic Condition: Uncontrolled. Treatment: New [...] fibers in diet Handout being provided. Discussed/Re-emphasized [place]/Phytochemicals Diet. Disucssed/Re-emphasized [place] Diet: Grocery List and Weekly Meal Plan provided. Discussed/Re-emphasized Low Carb Diet (<50g/day) with approximately Low Calories (<1200kcal/day): Grocery List, Daily Meal Plan and Healthy Alternative being provided. Discussed/Re-emphasized Non-weight bearing exercise to complete average 7500- 41299 steps per day: Swimming or Stationary Exercise [...] dinner. 5. Increase Exertion within Daily Activities: 7500-01221 Steps/day. Avoid Elevators, escalators at public places. 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 [address] [place] [id number] Care Teams Bottom Wheeler Relationship Specialty Start Date End Date Farheen Chan PA [address] [place] [address] PCP - General Physician Principal Quality Engineer 08/17/20
--- OUTSIDE RECORDS SUMMARY | 2024-10-06 03:57 | XMS_ITS | Encounter Summary ---
Author Organization [facility] Facility Care Team Providers Care Bench Loom Weaver Name Role Phone Unavailable Primary Care Provider Unavailabl e Encounter Details Date Type Department Care Team (Late st Contact Info) Description 12/03/2013 - 12/03/2013 11:59 PM MILL LABORER Hospital Encounter [facility] Mathew Osborne MD [address] [facility] [address] [place] [phone] Screening examination for rubella Social History Tobacco Use Types Packs/Day Years Used Date Smoking Tobacco: Never Assessed Comments Unknown Sex and Gender Information Value Date Recorded Sex Assigned at Not on file 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 [facility] ? Department of Laboratories ?[place] [address] ?[place] [facility] ?Endocrinology ?[address] ?[place] [address] Patient Name: ? TAYLOR VERDUZCO Med Rec Number: ?? [id number] Date of : ?1990 Gender/Age: ? Female 23 years Doctor: ? Mathew Osborne M.D. Report Date/Time: 12/04/2013 17:20 ?* Abnormal ??C Critical ??f Footnote ??^ Corrected ??L Low ??H High ?i Interp Data ??@ Reference Lab ?Chart Type: Cumulative ? SEROLOGY ?12/03/2013 ?10:00:00 Test ?Units ??Reference Rubella, IgG ??See Below 12/03/2013 ??10:00:00 ??Rubella, IgG ? Positive us Historical Provider LAB BLOOD ORDERABLES Gissell mello Result Performing Organization Address [facility] Co de Phone Number HISTORICAL RESULTS * Serum Rubella ab screen (12/03/2013 10:00 AM MILL LABORER) Rubella ab, IgG Positive HISTORICAL RESULTS Serum 12/03/2013 10:0 0 AM MILL LABORER us Mathew Osborne MD LAB BLOOD ORDERABLES Final Re sult Performing Organization Address City/[facility] Co de Phone Number HISTORICAL RESULTS documented in this encounter Visit Diagnoses Diagnosis Screening examination for rubella documented in this encounter
--- OUTSIDE RECORDS SUMMARY | 2024-10-06 03:57 | XMS_ITS | Encounter Summary ---
Author Organization [facility] Facility Care Team Providers Care Snailer Name Role Phone Unavailable Primary Care Provider Unavailabl e Encounter Details Date Type Department Care Team (Late st Contact Info) Description 12/20/2013 - 12/20/2013 11:59 PM CDT Hospital Encounter [facility] Guille Osborne MD [address] [address] Fertility testing Social History Tobacco Use Types Packs/Day Years Used Date Smoking Tobacco: Former Comments Unknown Sex and Gender Information Value Date Recorded Sex Assigned at Not on file Legal Sex Female 7:03 PM [employer] Gender Identity Not on file Sexual Orientation Not on file documented as of this encounter Plan of Treatment Not on file documented as of this encounter Procedures Procedure Name Priority Date/Time Associated Diagnosis Comments HYSTEROSALPINGOGRAM Routine 12/20/2013 1 1:38 AM CDT HYSTEROSALPINGOGRAM Routine 12/20/2013 1 1:38 AM CDT documented in this encounter Results * XR Hysterosalpingogram (12/20/2013 11:38 AM CDT) Anatomical Region Laterality Modality Body, Pelvis N/A Radiographic Lora ging 12/20/2013 11:3 8 AM CDT Narrative 12/20/2013 3:45 PM CDT CAROLYN RATLIFF M.D. HILARIA AVILA M.D. FINAL REPORT The radiology attending physician has personally reviewed this study, and has reviewed and/or edited this written report and agrees with it. ACC# ??Date Time ??Exam [id number] Dec 20, 2013 11:38:00 [id number] HSG, S&I [id number] Dec 20, 2013 11:38:00 [id number] Inj HSG EXAMINATION: ?Hysterosalpingogram HISTORY: 23 year old woman, on day 9 of her menstrual cycle. Diagnostic evaluation of the fallopian tubes and uterine cavity. TECHNIQUE: ??Using sterile technique, a speculum was inserted into the vagina and the cervix cleansed with Betadine solution. ??An Mantee suction catheter was then placed and Conray 60 was injected into the uterus. ?? Multiple fluoroscopic images of the pelvis were obtained. ??The patient tolerated the procedure well without complication. Dr. Ratliff, the attending radiologist, was present from the beginning to the end of the procedure. FINDINGS: Endocervical canal: The endocervical canal is normal in appearance. Uterus: ??The uterus is anteflexed. ??There are no filling defects, and the uterine contour is normal. Fallopian tubes: ??The fallopian tubes are normal in contour. ??There is peritoneal spillage from both tubes. IMPRESSION: ?Normal hysterosalpingogram. Requested By: GUILLE OSBORNE ??M.D. Dictated By: ?? HILARIA AVILA M.D. ??on Dec 20 2013 11:46A This document has been electronically signed by: CAROLYN RATLIFF M.D. on Dec 20 2013 ??3:45P Procedure Note Provider, MD Tania - 02/02/2017 CAROLYN RATLIFF M.D. HILARIA AVILA M.D. FINAL REPORT The radiology attending physician has personally reviewed this study, and has reviewed and/or edited this written report and agrees with it. ACC# Date Time Exam [id number] Dec 20, 2013 11:38:00 [id number] HSG, S&I [id number] Dec 20, 2013 11:38:00 [id number] Inj HSG EXAMINATION: Hysterosalpingogram HISTORY: 23 year old woman, on day 9 of her menstrual cycle. Diagnostic evaluation of the fallopian tubes and uterine cavity. TECHNIQUE: Using sterile technique, a speculum was inserted into the vagina and the cervix cleansed with Betadine solution. An Mantee suction catheter was then placed and Conray 60 was injected into the uterus. Multiple fluoroscopic images of the pelvis were obtained. The patient tolerated the procedure well without complication. Dr. Ratliff, the attending radiologist, was present from the beginning to the end of the procedure. FINDINGS: Endocervical canal: The endocervical canal is normal in appearance. Uterus: The uterus is anteflexed. There are no filling defects, and the uterine contour is normal. Fallopian tubes: The fallopian tubes are normal in contour. There is peritoneal spillage from both tubes. IMPRESSION: Normal hysterosalpingogram. Requested By: GUILLE OSBORNE M.D. Dictated By: HILARIA AVILA M.D. on Dec 20 2013 11:46A This document has been electronically signed by: CAROLYN RATLIFF M.D. on Dec 20 2013 3:45P us Historical Provider MD [facility]ONG FLUOROSCOPY PROCEDURE S Final Result * XR Hysterosalpingogram (12/20/2013 11:38 AM CDT) Anatomical Region Laterality Modality Body, Pelvis N/A Radiographic Lora ging 12/20/2013 11:3 8 AM CDT Narrative 12/20/2013 3:45 PM CDT Troy BROOKS M.D. FINAL REPORT The radiology attending physician has personally reviewed this study, and has reviewed and/or edited this written report and agrees with it. ACC# ??Date Time ??Exam [id number] Dec 20, 2013 11:38:00 [id number] HSG, S&I [id number] Dec 20, 2013 11:38:00 [id number] Inj HSG EXAMINATION: ?Hysterosalpingogram HISTORY: 23 year old woman, on day 9 of her menstrual cycle. Diagnostic evaluation of the fallopian tubes and uterine cavity. TECHNIQUE: ??Using sterile technique, a speculum was inserted into the vagina and the cervix cleansed with Betadine solution. ??An Mantee suction catheter was then placed and Conray 60 was injected into the uterus. ?? Multiple fluoroscopic images of the pelvis were obtained. ??The patient tolerated the procedure well without complication. Dr. Ratliff, the attending radiologist, was present from the beginning to the end of the procedure. FINDINGS: Endocervical canal: The endocervical canal is normal in appearance. Uterus: ??The uterus is anteflexed. ??There are no filling defects, and the uterine contour is normal. Fallopian tubes: ??The fallopian tubes are normal in contour. ??There is peritoneal spillage from both tubes. IMPRESSION: ?Normal hysterosalpingogram. Requested By: GUILLE OSBORNE ??M.D. Dictated By: ?? HILARIA AVILA M.D. ??on Dec 20 2013 11:46A This document has been electronically signed by: CAROLYN RATLIFF M.D. on Dec 20 2013 ??3:45P Procedure Note Provider, MD Tania - 02/02/2017 Troy BROOKS M.D. FINAL REPORT The radiology attending physician has personally reviewed this study, and has reviewed and/or edited this written report and agrees with it. ACC# Date Time Exam [id number] Dec 20, 2013 11:38:00 [id number] HSG, S&I [id number] Dec 20, 2013 11:38:00 [id number] Inj HSG EXAMINATION: Hysterosalpingogram HISTORY: 23 year old woman, on day 9 of her menstrual cycle. Diagnostic evaluation of the fallopian tubes and uterine cavity. TECHNIQUE: Using sterile technique, a speculum was inserted into the vagina and the cervix cleansed with Betadine solution. An Mantee suction catheter was then placed and Conray 60 was injected into the uterus. Multiple fluoroscopic images of the pelvis were obtained. The patient tolerated the procedure well without complication. Dr. Ratliff, the attending radiologist, was present from the beginning to the end of the procedure. FINDINGS: Endocervical canal: The endocervical canal is normal in appearance. Uterus: The uterus is anteflexed. There are no filling defects, and the uterine contour is normal. Fallopian tubes: The fallopian tubes are normal in contour. There is peritoneal spillage from both tubes. IMPRESSION: Normal hysterosalpingogram. Requested By: GUILLE OSBORNE M.D. Dictated By: HILARIA AVILA M.D. on Dec 20 2013 11:46A This document has been electronically signed by: CAROLYN RATLIFF M.D. on Dec 20 2013 3:45P us Historical Provider MD CHONG FLUOROSCOPY PROCEDURE S Final Result documented in this encounter Visit Diagnoses Diagnosis Fertility testing documented in this encounter
== END 2024-09-29 09:35 | disposition home or self-care (01) ==
PROVIDERS: Emergency Provider Nurse Practitioner Family; PCP Physician Assistant
DX: B34.9 Viral infection, unspecified (principal); Z20.822 Contact with and (suspected) exposure to COVID-19
CPT/HCPCS: 87081; 87426; 87804; 87880; 99213; G0463